=== PATIENT | male | born 1955 | race African-American/Black ===

== ENCOUNTER 2019-03-26 09:23 | Outpatient (CLI) | payer OTHER, SELFPAY ==
--- NOTE | 2019-03-26 09:45 | XR_ITS ---
WS: [id number] RIGHT SHOULDER: 3 VIEW(S) TECHNIQUE: Internal and external rotation with Y view. HISTORY: RIGHT SHOULDER PAIN COMPARISON: None available. No fracture or dislocation or soft tissue abnormality. Very minimal narrowing and degenerative changes at the AC joint. Glenohumeral joint is normal. Visualized RIGHT upper lung is clear. XR/XR shoulder RT min 2V* [id number] IMPRESSION: Very mild RIGHT AC joint arthritis.
== END 2019-03-26 09:24 | disposition home or self-care (01) ==
PROVIDERS: Family Provider Family Medicine
DX: M19.011 Primary osteoarthritis, right shoulder (principal); M25.511 Pain in right shoulder
CPT/HCPCS: 73030

== ENCOUNTER 2019-04-19 10:05 | Outpatient (CLI) | payer OTHER, SELFPAY ==
--- NOTE | 2019-04-19 10:14 | MR_ITS ---
WS: [id number] MRI RIGHT SHOULDER HISTORY: OSTEOARTHRITIS COMPARISON: RIGHT shoulder radiograph 03/26/2019. TECHNIQUE: Multiplanar sequences of the shoulder joint are submitted. Mild narrowing and hypertrophic changes at the AC joint. No encroachment upon the rotator cuff. No os acromion. Biceps tendon remains in good position. There is a small amount of increased fluid along t he tendon sheath. Moderate-sized insertion site tear involving the supraspinatus tendon. Tear extends over a width of 9 mm. Fluid like signal at the insertion site with abnormal signal and thickening extending throughout a large portion of the tendon. Near full-thickness tear. There may be a very small amount of the ten don preserved but there is abnormal signal along both the articular surface and the bursal surface. T here is also marked supraspinatus tendinopathy involving the distal 3 cm. Infraspinatus tendon is int act. Mild subscapularis tendinopathy. There is mild atrophy of the supraspinatus muscle. There is als o small amount of edema and mild atrophy of the subscapularis muscle. Small amount of fluid in the frost bacromial subdeltoid bursa. No labral tear. MR/MR shoulder RT wo con* [id number] IMPRESSION: 1. Moderate-sized insertion site tear of the supraspinatus tendon. Increased s ignal extends throughout a majority of the distal tendon. If this is not a full -thickness tear there is a near complete full-thickness tear. 2. Moderate distal supraspinatus tendinopathy and mild distal subscapularis te ndinopathy. 3. Subacromial and subdeltoid bursal distention. 4. Mild biceps tenosynovitis.
== END 2019-04-19 10:06 | disposition home or self-care (01) ==
LOC: RADWPI 10:10
PROVIDERS: Family Provider Family Medicine
DX: M19.011 Primary osteoarthritis, right shoulder (principal); M75.101 Unspecified rotator cuff tear or rupture of right shoulder, not specified as traumatic; M65.811 Other synovitis and tenosynovitis, right shoulder
CPT/HCPCS: 73221

== ENCOUNTER 2019-05-20 06:27 | Day surgery (SDC) | payer OTHER, SELFPAY ==
[2019-05-19 11:37] VITALS: BMI 32.3
[2019-05-20] VITALS (9 sets, daily range): BP systolic 124–172; BP diastolic 81–99; PULSE 54–95; RESP 16–26; TEMP 36.1–36.7; O2SAT 91–97
[2019-05-20] MEDS: gabapentin 300 mg Capsule PO (06:59)
[2019-05-20] MEDS: acetaminophen 500 mg Tablet 1000 MG PO (06:59)
[2019-05-20] MEDS: CELEcoxib 200 mg Capsule 400 MG PO (06:59)
[2019-05-20] MEDS: sodium chloride 0.9% 1,000 ML 30 ML IV (07:04)
--- NOTE | 2019-05-20 07:12 | W.PM.OPSUD ---
Surgery/Procedure H&P Update DATE OF PROCEDURE: May 20, 2019 DATE H&P PERFORMED: 04/26/19 H&P UPDATE INFORMATION: I have reviewed H&P completed within last 30 days PREOP DIAGNOSIS: Right shoulder rotator cuff PRIMARY INDICATION FOR PROCEDURE: as above PLANNED PROCEDURE: Operation Date: 05/20/19 08:00 Proposed Procedures p Shoulder Arthroscopy 76126 S46.811A(Left) - DO sun Dickinson Rotator Cuff Repair(Left) - Chavo Olmos DO
--- NOTE | 2019-05-20 07:15 | ANES.PREANE2 ---
Pre-Anesthetic Assessment Pre-Anesthetic Assessment: Height/Weight: Height 1.88 m Weight 114.305 kg Temp Pulse Resp BP Pulse Ox 97.7 F 95 18 172/99 97 05/20/19 06:51 05/20/19 06:51 05/20/19 06:51 05/20/19 06:51 05/20/19 06:51 Preop Diagnosis: Right shoulder rotator cuff Proposed Procedure: Operation Date: 05/20/19 08:00 Proposed Procedures p Shoulder Arthroscopy 21450 S46.811A(Left) - Chavo Olmos DO s Rotator Cuff Repair(Left) - Chavo Olmos DO Familial anesthetic complications: None Was Beta Yvonne taken within 24 hours: N/A Last intake: Intake Last Liquid Date 05/19/19 Last Liquid Time 20:00 Last Solid Date 05/19/19 Last Solid Time 20:00 Social: Social History: Alcohol and Tobacco Packs per day: 0.5 ppd Comment: 2-3 beers a night Exam: Pre-Anes Outpt Exam: alert, oriented x 3, clear to auscultation bilaterally and regular rate & rhythm Airway: Cervical ROM: WNL MP: 3 Additional comments: dentures Pulmonary: Pulmonary: COPD (?emphysema on inhalers) CV/HEM: CV/HEM: HTN : : None reported Hepatic: Hepatic: None reported GI: GI: GERD Metabolic: Metabolic: Hyperlipidemia Musc/skel: Musc/skel: None reported Neuropsych: Comments: Numbness in R fingers (mostly in thumb) Anesthetic Plan: ASA status: 2 Anesthesia: General and Regional (specify below) Other: Interscalene Risk of > 500 ml blood loss (7ml/kg in children): No Meds/Allergies Current Medications: Current Medications Generic Name Dose Route Start Last Admin Trade Name Freq PRN Reason Stop Dose Admin Sodium Chloride 1,000 mls @ 30 ml s/hr 05/20/19 06:45 05/20/19 07:04 Sodium Chloride 0.9% IV 05/21/19 06:44 30 mls/hr .Q24H ARCELIA Administration PFSH Anesthesia PFSH: Medical History (Updated 04/28/19 @ 15:15 by Chavo Olmos DO) Accelerated essential hypertension Hypercholesterolemia Rotator cuff tear, non-traumatic Surgical History (Updated 04/28/19 @ 15:15 by Chavo Forsyth, DO) History of rotator cuff surgery left shoulder Family History (Updated 04/26/19 @ 14:13 by Jody Samaniego LPN) Mother Diabetes Hypertension Social History (Updated 04/26/19 @ 14:14 by Jody Samaniego LPN) Smoking and tobacco status: current every day smoker Alcohol intake: current Data Anesthesia Cardiac Studies: No Data to Display
--- NOTE | 2019-05-20 07:17 | P.OP_ITS ---
Operative Report Date of procedure: May 20, 2019 Pre-op Diagnosis: Right shoulder rotator cuff Pre-op Diagnosis: Chronic impingement syndrome right shoulder Non-traumatic tear right rotator cuff Post-op diagnosis: same Post-op Findings: acromioclavicular joint arthritis impinging on rotator cuff Procedure Done: Diagnostic arthroscopy right shoulderwith minimal debridement. Open rotator cuff repair Open distal clavicle excision Open subacromial decompression Implants: #4 Arthrex swivel lock anchors Specimens removed/disposition: portions of distal clavicle and acromion submittedto pathology Pathology: other Surgeon: Chavo Olmos Anesthesia: General and Nerve Block (interscalene block) Estimated blood loss (mL): 50 Complications: no apparent complications Condition: stable Disposition: same day Brief History: 63 y/o black male with chronic right shoulder pain without specific preceding traumatic event.examination consistent with chronic impingement syndrome with possible rotator cuff tear. X-ray show no significant glenohumeral joint arthritis. There is acromioclavicular joint arthritis. There is no decrease in the acromiohumeral interval noted on radiographs. MRI was performed which showed acromioclavicular joint arthritis as well as full-thickness rotator cuff tear supraspinatus tendon. risks, benefits and potential complications of surgery discussed with the patient. Risks include but aren't limited to: Infection, nerve/blood vessel/tendon injury, re-tear of the rotator cuff, postoperative stiffness. Medical complications can include blood clots, heart attack, stroke and risk up to including . All questions were answered. The patient was agreeable to proceed with surgery. Procedure: 1.5 g Zinacef Patient identified. Surgical site was signed. Surgical permit was signed. Anesthesia team performed a right-sided interscalene block for intraoperative and postoperative analgesia. The patient received 1.5 g of Zinacef for surgical prophylaxis intravenously. The patient stating the operating room. His placed on the operating room table in supine position. His placed under general endotracheal anesthesia without difficulty. The patient is then positioned in the beachchair positioner. He was then sterilely prepped and draped in the usual fashion. A timeout was performed. Using a marking pen we marked out the bony landmarks about the right shoulder. #11 blade we made a posterior portal. The posterior portal incision was inserted the arthroscopic sheath with a blunt trocar into the glenohumeral joint. To the S Sheath arthroscopic pump with sterile saline dilute epinephrine solution was attached. The arthroscope was inserted into the shoulder joint. We verified that we were within the shoulder joint. The shoulder was irrigated using the arthroscopic pump. We then advanced the arthroscope from posterior to anterior the arthroscope was removed and a switching stick was inserted and the skin was tented anteriorly. A 15 blade was used to make a anterior portal through which a 7 mm Arthrex clear cannula was inserted into the shoulder joint. The arthroscope was once again placed in the sheath. A shaver was then placed through the anterior portal. The patient's biceps tendon was normal. There is minor fraying of the labrum this was debrided. There is mild synovitis in the shoulder joint this was debrided as well using motorized shaver. We turned our attention lateralward. We noticed that the patient had a full-thickness rotator cuff tear lateral to the exit of the long head of the biceps tendon. We marked this area using a #1 PDS suture that was inserted through a spinal needle placed through the tear exiting out through the anterior portal cannula. The anterior portal cannula was removed. Spinal needle was removed and the PDS suture was hemostatic. This was then directed towards the subacromial space. The patient had marked proliferative bursa. Due to difficulty clearing adequate space for visualization of the rotator cuff while the shoulder continued to distend due to the Pump I elected to convert to an open procedure. 10 cm incision was made from the acromioclavicular joint obliquely over the anterolateral corner of the acromion. Skin edge bleeders were coagulated with electrocautery. Full- thickness flaps of deltotrapezial insertion are made on the distal clavicle and acromion. Using an oscillating saw we resected the distal clavicle and anterior acromion the acromion using osteotome followed by a palmar aspect. Portions of the distal clavicle and acromion were submitted for exam. We then performed extensive resection of bursal tissue identify the underlying rotator cuff tear. I took a rongeur as well as an elevator to [place] the footprint of the supraspinatus tendon. 2 medial row anchors were placed at the articular margin one just posterior to exiting biceps tendon and the other more posterior on the greater tuberosity. Using the [place] needle passer replaced fiber tape sutures through the rotator cuff we then made a speed bridge construct and anchored to lateral anchors in the humeral head. Ramipril appropriate tension to reduce the rotator cuff tendon back to its anatomic position. Excess suture was cut using a knife. Subacromial space was irrigated using Betadine- containing saline solution and antibiotic containing saline solution. We repaired the elbow. Back to the acromion by passing #2 sutures of FiberWire through the deltoid muscle and through the acromion. Further repaired the split in the deltoid and the soft tissues overlying the resected, click joint using a sutures of #2 Ethibond. The skin was then closed in layers with running septic or suture of 3-0 Monocryl followed by Steri-Strips and skin glue at the incision and portal sites. Sterile dressings were applied the patient is placed in a shoulder immobilizer. He was aroused from general anesthesia. He was taken to the recovery room. He tolerated surgery well. All counts are correct.
[2019-05-20 07:34] LABS: Basophils % 0.8 %; Eosinophils # 0.1 10^3/uL (0.0-0.8); Eosinophils % 2.3 %; Hemoglobin 15.5 g/dL (11.7-16.6); Lymphocytes # 1.7 10^3/uL (0.8-4.8); Lymphocytes % 35.5 %; Mean Corpuscular HGB Conc 33.7 g/dL (30.0-36.0); Mean Corpuscular Hemoglobin 31.1 pg (28.0-34.0); Mean Corpuscular Volume 92.2 fL (80-94); Mean Platelet Volume 11.7 fL (7.4-10.4); Monocytes # 0.6 10^3/uL (0.2-0.9); Monocytes % 13.1 %; Neutrophils # 2.3 10^3/uL (1.8-7.7); Neutrophils % 48.1 %; Nucleated Red Blood Cells % 0 %; Platelet Count 166 10^3/cmm (130-400); Red Blood Count 4.99 10^6/uL (4.1-5.3); Red Cell Distribution Width 14.2 % (12.1-15.1); White Blood Count 4.9 10^3/uL (4.0-10.0)
[2019-05-20] MEDS: midazolam 1 mg/mL INJ 2 mL 2 MG IVP (07:39)
--- NOTE | 2019-05-20 07:43 | ANES.PROC ---
Anesthesia Procedures Procedure/Date: 05/20/19 Nerve Block ^: Nerve Block 1: Main Anesthesia: general anesthesia Time Out Performed: Yes Consent: requested by attending/covering physician, risks and benefits reviewed and patient agrees to proceed Nerve block location: interscalene (R) Anesthesia monitors applied: pulse oximetry, BP cuff and oxygen Nerve block position: semi sitting Anesthetic Used: ropivicaine 0.5% and with decadron (4mg) Amount of anesthesia used (mL): 30 Ultrasound used to: recognize landmarks and visualize and ID interscalene groove Nerve Stimulator Used?: No Interscalene/Femoral BLK: 2 stimuplex 22 g needle used for position and inplane approach Injection: neg aspiration of heme Patient Tolerated Procedure: well Complications: none Additional Comments: versed 1 mg
[2019-05-20 07:45] LABS: Anion Gap 16.1 (5-19); Blood Urea Nitrogen 19 mg/dL (8-23); Calcium 10.2 mg/dL (8.5-10.5); Carbon Dioxide 25 mmol/L (22-29); Chloride 100 mmol/L (98-107); Glomerular Filtration Rate 91.6 mL/min (90-130); Glucose 122 mg/dL (65-115); Osmolality Calculated 282 mOsm/kg (285-295); Potassium 4.1 mmol/L (3.5-5.1); Sodium 137 mmol/L (136-145)
[2019-05-20] MEDS: EPINEPHrine 1 mg/mL INJ 3 MG XX (09:09)
== END 2019-05-20 12:25 | disposition home or self-care (01) ==
PROVIDERS: Family Provider Family Medicine; Visit Provider Orthopaedic Surgery
PROC: (CPT 29805; principal; 2019-05-20 08:00)
PROC: (CPT 23120; 2019-05-20 08:00)
DX: M75.101 Unspecified rotator cuff tear or rupture of right shoulder, not specified as traumatic (principal); M25.811 Other specified joint disorders, right shoulder; M13.811 Other specified arthritis, right shoulder; Z82.49 Family history of ischemic heart disease and other diseases of the circulatory system; Z83.3 Family history of diabetes mellitus; F17.210 Nicotine dependence, cigarettes, uncomplicated; I10 Essential (primary) hypertension; E78.5 Hyperlipidemia, unspecified; K21.9 Gastro-esophageal reflux disease without esophagitis
CPT/HCPCS: 23120; 23420; 12345; 36415; 80048; 85025; 88304; 96374; C1713; J0171; J0697; J1100; J1580; J2250; J2370; J2405; J2704; J2710; J2795; J3010; J3490; J7030; J7050

== ENCOUNTER → 2021-05-04 11:43 | Outpatient (BNVA) | payer OTHER, SELFPAY | PROVIDERS: Family Provider Family Medicine; PCP Nurse Practitioner; Referring Provider Nurse Practitioner; Visit Provider Urology | DX: R97.20 Elevated prostate specific antigen [PSA] (principal); R31.0 Gross hematuria | CPT/HCPCS: 81003; 84153; 87086; 88112 ==

== ENCOUNTER → 2021-05-31 16:51 | Outpatient (BNVA) | payer OTHER, SELFPAY | PROVIDERS: Family Provider Family Medicine; PCP Nurse Practitioner; Visit Provider Urology | DX: R97.20 Elevated prostate specific antigen [PSA] (principal) | CPT/HCPCS: 81003; 88305; 88342 ==

== ENCOUNTER 2021-06-08 08:32 | Outpatient (CLI) | payer OTHER, SELFPAY ==
--- NOTE | 2021-06-08 09:00 | CT_ITS ---
WS: [id number] Exam: CT abdomen pelvis wo/w [id number] Date/Time of Exam: 06/08/2021 8:39 AM Reason For Exam: PROSTATE CANCER DLP: 3686.[address] scans at [facility] use at least one of these dose optimization techniques: automated e xposure control; mA and/or kV adjustment per patient size (includes targeted exams where dose is matc hed to clinical indication); or iterative reconstruction. Comparison 08/15/2016. Lower lung zones are clear. The stomach, spleen and pancreas appear normal. Subcentimeter low-attenu ation nodule in the inferior aspect of the right hepatic lobe probably a tiny cyst. Tiny stones or mi lk of calcium in the gallbladder. No sign of acute cholecystitis. Small splenule noted. No significan t adrenal lesion. Tiny subcentimeter complex cyst in the anterior right kidney stable in appearance. Normal left kidney. The abdominal aorta is normal in caliber. The IVC is patent. Portal vein is paten t. Small bowel loops are normal in caliber. No lymphadenopathy. No free air. No sign of acute appendi x. Appendix visualized. No mass or adenopathy in the pelvis. Mild colonic diverticulosis. No sign of acute diverticulitis. Wall thickening of the urinary bladder which might reflect mild cystitis. No m ass or adenopathy in the pelvis. Mild prostatomegaly. No osteolytic or osteoblastic bone destruction. Dystrophic ossification along the anterior right ilium which may be secondary to prior trauma. This is stable in appearance. Progressive degenerative changes of the lower lumbar spine. Probable small b ilateral hydroceles. CT/CT abdomen pelvis wo/w [id number] IMPRESSION: 1. No mass, lymphadenopathy or acute finding. 2. Tiny calcifications in the gallbladder suggesting either tiny stones or milk of calcium. No sign of acute cholecystitis. Mild colonic diverticulosis. Other minor findings as above. 3. Wall thickening of the urinary bladder which might reflect mild cystitis or underdistention of the bladder.
[2021-06-08 09:19] LABS: Blood Urea Nitrogen 13 mg/dL (8-23); Glomerular Filtration Rate 73.8 mL/min (90-130)
[2021-06-08] MEDS: iohexol 350 mg/mL 100 mL Btl IV (11:57)
== END 2021-06-08 08:33 | disposition home or self-care (01) ==
PROVIDERS: PCP Nurse Practitioner; Visit Provider Urology
DX: C61 Malignant neoplasm of prostate (principal)
CPT/HCPCS: 74178; 82565; 84520

== ENCOUNTER 2021-06-14 07:48 | Outpatient (CLI) | payer OTHER, SELFPAY ==
--- NOTE | 2021-06-14 07:53 | NM_ITS ---
WS: [id number] NUCLEAR MEDICINE BONE SCAN Radiopharmaceutical: 24.4 Tc-99m MDP mCi IV Injection site: RIGHT antecubital Postinjection imaging delay: 1 hr CLINICAL INFORMATION: PROSTATE CANCER COMPARISON: Bone scan [address] abdomen pelvis June 08, 2021 FINDINGS: Bone lesions: There are no osseous lesions suspicious for metastatic disease. Soft tissue contours: Normal. Kidneys: Normal. Other findings: Degenerative type uptake RIGHT shoulder, RIGHT hip dystrophic calcification, and LEFT knee. This is similar to 2013. Urinary contamination. Degenerative, Uptake in the lower lumbar spine compatible with spondylitic changes. Advanced degenerative arthritis in this area on the recent CT with disc space narrowing and subchondral cystic changes. NM/NM bone scan whole body* [id number] IMPRESSION: No evidence of osseous metastatic disease.
== END 2021-06-14 07:49 | disposition home or self-care (01) ==
LOC: RAD 07:48
PROVIDERS: PCP Nurse Practitioner; Visit Provider Urology
DX: C61 Malignant neoplasm of prostate (principal)
CPT/HCPCS: 78306; A9561

== ENCOUNTER 2021-06-20 14:20 | Outpatient (CLI) | payer OTHER, SELFPAY ==
--- NOTE | 2021-06-20 17:07 | ONC CON_ITS ---
Dr. Mathur New Patient Note Patient: Khang Hudson Unit #: [id number]: 1955 Dicatated By: Anabel Mathur M.D.Date of Visit: Jun 20, 2021 Onc MED New Patient/Consult Referring Physician: Dr. Taj Armendariz M.D. History of Present Illness: Mr. Khang Hudson, is a 65-year-old gentleman with history of progressive PSA level underwent NICKOLAS on May 31, 2021 which showed distinct right-sided nodularity, subsequently underwent TRUS P/biopsy on May 31, 2021 and pathology confirmed large volume, Bushnell score 5+5, grade group 5 in 10 of 12 cores. Lymphovascular/perineural invasion seen,. CT scan of abdomen pelvis done on June 08, 2021 showed no mass or lymphadenopathy bone scan done on June 14, 2021 shows no evidence of osseous metastatic disease., His PSA level on May 04, 2021 was 10.4 , Smoke about half pack a day, is a social drinker Past medical history significant for arthritis involving lower lumbar spine and shoulder, hypertension, hypercholesterolemia No family history significant for prostate cancer Denies any fever chills denies any dysuria or hematuria denies any new bony pain except chronic lower back pain probably due to arthritis as bone scan/CT scan of abdomen pelvis done recently showed no evidence of bone mets, as per patient, Dr. Armendariz, urologist, informed him that he is not a candidate for surgery so he is here to discuss about his treatment options Past Medical History: Mr. Hudson's medical history consists of allergic rhinitis, chronic obstructive pulmonary disease, diaphragmatic hernia, dislocation of shoulder joint, gastroesophageal reflux disease, hyperlipidemia, hypertension, inguinal hernia, and osteoarthritis. Past Surgical History: Mr. Hudson's surgical/procedural history consists of TRUSP/bx in 2021 and hernia repair in 2003. Medications: amLODIPine Besylate 1 Tablet (of 2.5 mg) Oral t.i.d., Celecoxib 1 Capsule (of 100 mg) Oral b.i.d., Chlorpheniramine Maleate 1 Tablet (of 4 mg) Oral daily, Cytotec 1 Tablet (of 100 mcg) Oral b.i.d., hydroCHLOROthiazide 1 Tablet (of 25 mg) Oral daily, Omeprazole 1 Tablet (of 20 mg) Capsule Delayed Release Oral daily, Rosuvastatin Calcium 1 Tablet (of 10 mg) Oral daily Allergies: No Known Allergies. Social History: Mr. Hudson is . He is a daily smoker who has smoked 0.5 packs/day for 35 years. He drinks occasionally. He has indicated exposure to the following products: cigarettes. Family History: Mr. Hudson's mother at age 64: breast cancer. Mr. Hudson's father at age 64: lung cancer. Review Of Symptoms: Review of Systems is not available for this patient. Vital Signs: Performed on Jun 20, 2021 15:26: 4, 3, 32.20 (HIGH), 2.39 sq.m, 74 in, 95 % (LOW), 51 /min (LOW), 18 /min, 127/84 mm(hg), 97.6 F (LOW), and 250.8 lbs (HIGH). Performance Status: 0 - Fully active, able to carry on all predisease activities without restrictions. (ECOG) Physical Examination: ENMT - No mouth sores, no thrush, no jaundice, Respiratory - Lungs are clear to auscultation, Cardiovascular - Regular rate and rhythm of heart, Abdomen - Soft, bowel sounds present, Extremities - No visible edema or rash. Lab/Imaging: Most recent lab results are not available for this patient. Impression: Very high risk, large volume, Bushnell 5+5, grade group 5 and 10 of 12 cores, lymphovascular/perineural invasion seen per TUR SP/biopsy done on May 31, 2021, PSA done on May 04, 2021 was 10.4, NICKOLAS showed distinct right-sided nodularity. CT scan of abdomen pelvis done on June 08, 2021 showed no mass or lymphadenopathy bone scan done on June 14, 2021 shows no evidence of osseous metastatic disease. Clinical stage IIIc ((grade group 5) Chronic lower back pain due to arthritis Hypertension Hypercholesterolemia Plan: Discussed with patient regarding his disease status, CT scan of abdomen pelvis and bone scan findings, clinically it appears patient has T2 a or b (NICKOLAS exam shows right lobe nodularity), NX, MX, large volume, Kassidy score 5+5, group grade 5 which will make him very high risk group, as per patient, Dr. Armendariz, informed him that he is not a candidate for surgery, so he is here to discuss about his treatment options, as per NCCN guidelines, in patient with very high risk group category, with life expectancy more than 5 years, standard of care would be combined ADT/radiation therapy followed by docetaxel every 3 weeks x6 and continue with adjuvant therapy with ADT for 2 to 3 years or instead of chemotherapy, abiraterone. Considering his age and overall good performance status and risk of developing hormone resistant disease, we would consider chemotherapy with docetaxel. All the side effect possible benefits associated with ADT with Zoladex/Casodex including but not limited to hot flashes, mood swings, erectile dysfunction, decreased libido, gynecomastia, muscle wasting, bone demineralization, abnormal LFTs especially with Casodex were mentioned, also discussed about chemotherapy briefly, will have further discussion once patient complete his combined hormonal/radiation therapy. In the meantime we will obtain baseline CBC CMP, PSA and testosterone level Patient return to clinic 1 month after Zoladex injection with PSA and testosterone level and CMP Patient was also offered a referral to tertiary care for second opinion, patient opted for treatment here. We will refer him to radiation oncology For evaluation regarding combined hormonal/radiation therapy.We will also consider genetic testing for including BRCA1/2, PRETTY, PALB 2, CH EK 2, MMR/MSI, [id number] Signed By: Anabel Mathur M.D. <<Signature on File>>
== END 2021-06-20 14:21 | disposition home or self-care (01) ==
LOC: ONCMED 14:26
PROVIDERS: PCP Nurse Practitioner; Visit Provider Internal Medicine Hematology & Oncology
DX: C61 Malignant neoplasm of prostate (principal); I10 Essential (primary) hypertension; E78.00 Pure hypercholesterolemia, unspecified; J44.9 Chronic obstructive pulmonary disease, unspecified; K21.9 Gastro-esophageal reflux disease without esophagitis; E78.5 Hyperlipidemia, unspecified; Z79.899 Other long term (current) drug therapy
CPT/HCPCS: 99205

== ENCOUNTER 2021-06-21 09:00 | Outpatient (CLI) | payer OTHER, SELFPAY ==
[2021-06-21 09:51] LABS: Basophils % 0.9 %; Eosinophils # 0.1 10^3/uL (0.0-0.8); Hematocrit 49.1 % (42.0-52.0); Hemoglobin 16.2 g/dL (11.7-16.6); Lymphocytes # 2.1 10^3/uL (0.8-4.8); Lymphocytes % 48.1 %; Mean Corpuscular Hemoglobin 30.5 pg (28.0-34.0); Mean Corpuscular Volume 92.3 fl (80-94); Mean Platelet Volume 11.3 fL (7.4-10.4); Monocytes # 0.6 10^3/uL (0.2-0.9); Neutrophils # 1.52 10^3/uL (1.8-7.7); Neutrophils % 34.8 %; Nucleated Red Blood Cells % 0 %; Platelet Count 177 10^3/cmm (130-400); Red Blood Count 5.32 10^6/uL (4.1-5.3); Red Cell Distribution Width 14.5 % (12.1-15.1); White Blood Count 4.4 10^3/uL (4.0-10.0)
[2021-06-21 10:20] LABS: Alanine Aminotransferase 21 U/L (0-41); Albumin Level 4.4 g/dL (3.5-5.2); Alkaline Phosphatase 251 IU/L (40-130); Aspartate Amino Transferase 25 U/L (0-40); Blood Urea Nitrogen 13 mg/dL (8-23); Calcium 9.6 mg/dL (8.5-10.5); Carbon Dioxide 27 mmol/L (22-29); Chloride 98 mmol/L (98-107); Globulin 2.5 g/dL (1.3-4.6); Glucose 119 mg/dL (65-115); Osmolality Calculated 281 mOsm/kg (285-295); Sodium 135 mmol/L (136-145); Total Bilirubin 0.2 mg/dL (0.15-1.2); Total Protein 6.9 g/dL (6.6-8.7)
[2021-06-21 10:26] LABS: Anion Gap 14.3 (5-19); Potassium 4.3 mmol/L (3.5-5.1)
== END 2021-06-21 09:01 | disposition home or self-care (01) ==
PROVIDERS: PCP Nurse Practitioner; Visit Provider Internal Medicine Hematology & Oncology
DX: C61 Malignant neoplasm of prostate (principal); I10 Essential (primary) hypertension; E78.00 Pure hypercholesterolemia, unspecified; J44.9 Chronic obstructive pulmonary disease, unspecified; K21.9 Gastro-esophageal reflux disease without esophagitis; E78.5 Hyperlipidemia, unspecified; Z79.899 Other long term (current) drug therapy
CPT/HCPCS: 36415; 80053; 84153; 84403; 85025

== ENCOUNTER 2021-06-27 13:55 | Outpatient (CLI) | payer OTHER, SELFPAY ==
[2021-06-27] MEDS: lidocaine 1% INJ 20 mL INJECTION (14:20)
[2021-06-27] MEDS: goserelin acetate 10.8 mg Implant SUBCUT (14:30)
== END 2021-06-27 13:56 | disposition home or self-care (01) ==
LOC: ONCMED 13:56
PROVIDERS: PCP Nurse Practitioner; Visit Provider Internal Medicine Hematology & Oncology
DX: C61 Malignant neoplasm of prostate (principal); I10 Essential (primary) hypertension; E78.00 Pure hypercholesterolemia, unspecified; J44.9 Chronic obstructive pulmonary disease, unspecified; K21.9 Gastro-esophageal reflux disease without esophagitis; E78.5 Hyperlipidemia, unspecified; Z79.899 Other long term (current) drug therapy
CPT/HCPCS: 96372; 96402; J9202

== ENCOUNTER 2021-08-03 09:08 | Oncology outpatient (recurring) (ONCR) | payer OTHER, SELFPAY | END 2021-08-07 23:59 | disposition home or self-care (01) | PROVIDERS: PCP Nurse Practitioner; Visit Provider Internal Medicine Hematology & Oncology | DX: C61 Malignant neoplasm of prostate (principal); R53.1 Weakness; R53.82 Chronic fatigue, unspecified; F41.9 Anxiety disorder, unspecified; M75.100 Unspecified rotator cuff tear or rupture of unspecified shoulder, not specified as traumatic; Z79.818 Long term (current) use of other agents affecting estrogen receptors and estrogen levels; Z79.899 Other long term (current) drug therapy | CPT/HCPCS: 80053; 84153; 84403; 85025; 99214; 99999 ==

== ENCOUNTER 2021-08-14 11:57 | Oncology outpatient (recurring) (ONCR) | payer OTHER, SELFPAY ==
--- NOTE | 2021-08-08 09:46 | N.ONRAD NP_ITS ---
Radiation Oncology Consultation Patient Name: Khang Hudson Date of : 1955 Date of Service: 08/08/2021 Attending Physician: Johnathan Gallegos M.D. Khang Hudson was seen in consultation this morning at the request of Madhu Mathur M.D. for consideration of prostate radiotherapy for the management of a recently diagnosed prostate cancer. He initially was identified to have an elevated PSA level (9.6 ng/mL) in March by his primary care physician. He was referred to Taj Armendariz M.D. A digital rectal exam revealed a right prostatic lobe nodule. Repeat PSA level was 10.4 ng/mL. A transrectal ultrasound-guided biopsy performed on May 31, 2021 revealed a 53 cc prostate gland with bilateral hypoechoic lesions. The pathology report (personally reviewed in [facility]) diagnosed an adenocarcinoma the prostate gland with a Kassidy score of 5+5 = 10 (grade group 5) involving the right lateral apex (25%), right lateral mid gland (100%), right lateral base (100%), right apex (25%), right mid gland (100%), right base (100%), left lateral base (60%), left apex (60%), left mid gland (100%), and left base (100%). Perineural invasion was identified. A nuclear medicine bone scintigraphy scan and an abdominopelvic CT scan metastatic disease did not identify metastatic disease. A [id number] CDx genomic profiling was obtained. A tumor mutational burden of 4.7 mut/Mb was reported and high microsatellite instability was not detected. A GnRH agonist (Zoladex) was administered on June 27, 2021. The patient was evaluated for radiotherapeutic options. I discussed with Mr. Hudson the [place] [employer] on Cancer staging for prostate cancer and specifically, the clinical stage IIIC (T2aN0) very high-risk stratification corresponding to the patient???s prostate cancer. I also reviewed the National Comprehensive Cancer Network Guidelines recommending androgen deprivation therapy, external beam radiotherapy with or without brachytherapy and consideration for docetaxel chemotherapy. The admonition by the NCCN was established by the RTOG 0521 trial that enrolled patients with high-risk non-metastatic prostate cancer to receive androgen suppression plus radiotherapy with or without adjuvant docetaxel chemotherapy. This study demonstrated improved overall survival and disease-free survival in the chemotherapy arm. I also reviewed GETUG???12 study which also enrolled high-risk localized prostate cancer patients to androgen suppression and docetaxel chemotherapy with estramustine or androgen suppression alone. Updated results published in abstract form continued to demonstrate a relapse free survival with the administration of chemotherapy. I would endorse a 7-1/2 week course of pelvic and prostate radiotherapy. Prior to commencement of radiotherapy, neoadjuvant total androgen suppression will be prescribed. A radiotherapy planning CT scan with contrast in the treatment position will be acquired to delineate the target volumes. I also discussed potential adverse events related to pelvic radiotherapy. The patient has verbalized understanding would like to proceed as advised. His medical treatment plan was discussed with Madhu Mathur M.D. Signed by: Dr. Johnathan Gallegos 08/08/2021 9:45:11 AM
--- NOTE | 2021-08-14 | CT_ITS ---
Radiation Therapy Planning CT images; total exam DLP: 1169.23 mGy-cm MTDD
== END 2021-08-21 08:13 | disposition home or self-care (01) ==
PROVIDERS: PCP Nurse Practitioner; Visit Provider Radiology Radiation Oncology
DX: Z51.0 Encounter for antineoplastic radiation therapy (principal); C61 Malignant neoplasm of prostate; Z79.818 Long term (current) use of other agents affecting estrogen receptors and estrogen levels
CPT/HCPCS: 77263; 77300; 77301; 77334; 77338; 77470; Q9967

== ENCOUNTER 2021-09-06 14:16 | Oncology outpatient (recurring) (ONCR) | payer OTHER, SELFPAY ==
--- NOTE | 2021-08-21 15:00 | ONCRAD TMN_ITS ---
Radiation Oncology Treatment Management Note Patient Name: Khang Hudson Date of : 1955 Date of Service: 08/21/2021 Attending Physician: Johnathan Gallegos M.D. 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 He initially was identified to have an elevated PSA level (9.6 ng/mL) in March by his primary care physician. He was referred to Taj Armendariz M.D. A digital rectal exam revealed a right prostatic lobe nodule. Repeat PSA level was 10.4 ng/mL. A transrectal ultrasound-guided biopsy performed on May 31, 2021 revealed a 53 cc prostate gland with bilateral hypoechoic lesions. The pathology report diagnosed an adenocarcinoma the prostate gland with a Kassidy score of 5+5 = 10 (grade group 5) involving the right lateral apex (25%), right lateral mid gland (100%), right lateral base (100%), right apex (25%), right mid gland (100%), right base (100%), left lateral base (60%), left apex (60%), left mid gland (100%), and left base (100%). Perineural invasion was identified. A nuclear medicine bone scintigraphy scan and an abdominopelvic CT scan metastatic disease did not identify metastatic disease. A [id number] CDx genomic profiling was obtained. A tumor mutational burden of 4.7 mut/Mb was reported and high microsatellite instability was not detected. A GnRH agonist (Zoladex) was administered on June 27, 2021. The patient has received 4 Gy of a prescribed 46 Razo to the prostate and regional lymph nodes with an intensity modulated radiotherapy plan utilizing a step and shoot treatment technique. An additional 32 Razo will be delivered to the prostate gland subsequent to the initial garcia. He has received neoadjuvant hormonal therapy. Upon review of systems, he denied any genitourinary complaints related to radiotherapy. On physical examination, the patient weighed 253 lbs. His temperature was 96.1 ???F and the blood pressure was 138/71 mmHg. The pulse was 60 bpm and his respiratory rate was 18. There was no erythema within the treatment garcia. Continue pelvic radiotherapy as prescribed. Signed by: Dr. Johnathan Gallegos 08/21/2021 2:59:34 PM
--- NOTE | 2021-08-28 14:50 | ONCRAD TMN_ITS ---
Radiation Oncology Treatment Management Note Patient Name: Khang Hudson Date of : 1955 Date of Service: 08/28/2021 Attending Physician: Johnathan Gallegos M.D. 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 He initially was identified to have an elevated PSA level (9.6 ng/mL) in March by his primary care physician. He was referred to Taj Armendariz M.D. A digital rectal exam revealed a right prostatic lobe nodule. Repeat PSA level was 10.4 ng/mL. A transrectal ultrasound-guided biopsy performed on May 31, 2021 revealed a 53 cc prostate gland with bilateral hypoechoic lesions. The pathology report diagnosed an adenocarcinoma the prostate gland with a Kassidy score of 5+5 = 10 (grade group 5) involving the right lateral apex (25%), right lateral mid gland (100%), right lateral base (100%), right apex (25%), right mid gland (100%), right base (100%), left lateral base (60%), left apex (60%), left mid gland (100%), and left base (100%). Perineural invasion was identified. A nuclear medicine bone scintigraphy scan and an abdominopelvic CT scan metastatic disease did not identify metastatic disease. A [id number] CDx genomic profiling was obtained. A tumor mutational burden of 4.7 mut/Mb was reported and high microsatellite instability was not detected. A GnRH agonist (Zoladex) was administered on June 27, 2021. The patient has received 14 Gy of a prescribed 46 Razo to the prostate and regional lymph nodes with an intensity modulated radiotherapy plan utilizing a step and shoot treatment technique. An additional 32 Gy will be delivered to the prostate gland subsequent to the initial garcia. He has received neoadjuvant hormonal therapy. Upon review of systems, he denied any genitourinary complaints. On physical examination, the patient weighed 256 lbs. His temperature was 97.7 ???F and the blood pressure was 143/76 mmHg. The pulse was 74 bpm and his respiratory rate was 19. Continue pelvic radiotherapy as planned. Signed by: Dr. Johnathan Gallegos 08/28/2021 2:48:29 PM
--- NOTE | 2021-09-04 14:47 | ONCRAD TMN_ITS ---
Radiation Oncology Treatment Management Note Patient Name: Khang Hudson Date of : 1955 Date of Service: 09/04/2021 Attending Physician: Johnathan Gallegos M.D. 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 He initially was identified to have an elevated PSA level (9.6 ng/mL) in March by his primary care physician. He was referred to Taj Armendariz M.D. A digital rectal exam revealed a right prostatic lobe nodule. Repeat PSA level was 10.4 ng/mL. A transrectal ultrasound-guided biopsy performed on May 31, 2021 revealed a 53 cc prostate gland with bilateral hypoechoic lesions. The pathology report diagnosed an adenocarcinoma the prostate gland with a Kassidy score of 5+5 = 10 (grade group 5) involving the right lateral apex (25%), right lateral mid gland (100%), right lateral base (100%), right apex (25%), right mid gland (100%), right base (100%), left lateral base (60%), left apex (60%), left mid gland (100%), and left base (100%). Perineural invasion was identified. A nuclear medicine bone scintigraphy scan and an abdominopelvic CT scan metastatic disease did not identify metastatic disease. A [id number] CDx genomic profiling was obtained. A tumor mutational burden of 4.7 mut/Mb was reported and high microsatellite instability was not detected. A GnRH agonist (Zoladex) was administered on June 27, 2021. The patient has received 24 Gy of a prescribed 46 Razo to the prostate and regional lymph nodes with an intensity modulated radiotherapy plan utilizing a step and shoot treatment technique. An additional 32 Gy will be delivered to the prostate gland subsequent to the initial garcia. He has received neoadjuvant hormonal therapy. Upon review of systems, he denied any new complaints. On physical examination, the patient weighed 252 lbs. His temperature was 98 ???F and the blood pressure was 125/77 mmHg. The pulse was 66 bpm and his respiratory rate was 18. Continue pelvic radiotherapy as prescribed. Signed by: Dr. Johnathan Gallegos 09/04/2021 2:46:24 PM
== END 2021-09-06 23:59 | disposition home or self-care (01) ==
PROVIDERS: PCP Nurse Practitioner; Visit Provider Radiology Radiation Oncology
DX: Z51.0 Encounter for antineoplastic radiation therapy (principal); C61 Malignant neoplasm of prostate
CPT/HCPCS: 77014; 77336; 77385; 77427

== ENCOUNTER 2021-09-17 13:55 | Outpatient (CLI) | payer OTHER, SELFPAY | END 2021-09-17 13:56 | disposition home or self-care (01) | PROVIDERS: PCP Nurse Practitioner; Visit Provider Urology | DX: R31.0 Gross hematuria (principal); C61 Malignant neoplasm of prostate; R39.89 Other symptoms and signs involving the genitourinary system; R39.11 Hesitancy of micturition | CPT/HCPCS: 51798; G0463; 36415; 84153; 99213 ==

== ENCOUNTER 2021-10-05 09:04 | Oncology outpatient (recurring) (ONCR) | payer OTHER, SELFPAY ==
--- NOTE | 2021-09-11 15:03 | ONCRAD TMN_ITS ---
Radiation Oncology Treatment Management Note Patient Name: Khang Hudson Date of : 1955 Date of Service: 09/11/2021 Attending Physician: Johnathan Gallegos M.D. 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 He initially was identified to have an elevated PSA level (9.6 ng/mL) in March by his primary care physician. He was referred to Taj Armendariz M.D. A digital rectal exam revealed a right prostatic lobe nodule. Repeat PSA level was 10.4 ng/mL. A transrectal ultrasound-guided biopsy performed on May 31, 2021 revealed a 53 cc prostate gland with bilateral hypoechoic lesions. The pathology report diagnosed an adenocarcinoma the prostate gland with a [place] score of 5+5 = 10 (grade group 5) involving the right lateral apex (25%), right lateral mid gland (100%), right lateral base (100%), right apex (25%), right mid gland (100%), right base (100%), left lateral base (60%), left apex (60%), left mid gland (100%), and left base (100%). Perineural invasion was identified. A nuclear medicine bone scintigraphy scan and an abdominopelvic CT scan metastatic disease did not identify metastatic disease. A [id number] CDx genomic profiling was obtained. A tumor mutational burden of 4.7 mut/Mb was reported and high microsatellite instability was not detected. A GnRH agonist (Zoladex) was administered on June 27, 2021. The patient has received 32 Gy of a prescribed 46 Razo to the prostate and regional lymph nodes with an intensity modulated radiotherapy plan utilizing a step and shoot treatment technique. An additional 32 Gy will be delivered to the prostate gland subsequent to the initial garcia. He has received neoadjuvant hormonal therapy. Upon review of systems, he denied any new complaints. On physical examination, the patient weighed 250 lbs. His temperature was 97.9 ???F and the blood pressure was 125/74 mmHg. The pulse was 59 bpm and his respiratory rate was 16. There was no erythema in the treatment garcia. Continue pelvic radiotherapy as planned. Signed by: Dr. Johnathan Gallegos 09/11/2021 3:02:01 PM
--- NOTE | 2021-09-18 15:04 | ONCRAD TMN_ITS ---
Radiation Oncology Treatment Management Note Patient Name: Khang Hudson Date of : 1955 Date of Service: 09/18/2021 Attending Physician: Johnathan Gallegos M.D. Khang Hudson is a 65 year old black male diagnosed with a clinical stage IIIC (T2aN0), very high-risk prostate cancer. He initially was identified to have an elevated PSA level (9.6 ng/mL) in March by his primary care physician. He was referred to Taj Armendariz M.D. A digital rectal exam revealed a right prostatic lobe nodule. Repeat PSA level was 10.4 ng/mL. A transrectal ultrasound-guided biopsy performed on May 31, 2021 revealed a 53 cc prostate gland with bilateral hypoechoic lesions. The pathology report diagnosed an adenocarcinoma of the prostate gland with a Kassidy score of 5+5 = 10 (grade group 5) involving the right lateral apex (25%), right lateral mid gland (100%), right lateral base (100%), right apex (25%), right mid gland (100%), right base (100%), left lateral base (60%), left apex (60%), left mid gland (100%), and left base (100%). Perineural invasion was identified. A nuclear medicine bone scintigraphy scan and an abdominopelvic CT scan metastatic disease did not identify metastatic disease. A [id number] CDx genomic profiling was obtained. A tumor mutational burden of 4.7 mut/Mb was reported and high microsatellite instability was not detected. A GnRH agonist (Zoladex) was administered on June 27, 2021. The patient has received 42 Gy of a prescribed 46 Razo to the prostate and regional lymph nodes with an intensity modulated radiotherapy plan utilizing a step and shoot treatment technique. An additional 32 Gy will be delivered to the prostate gland subsequent to the initial garcia. He has received neoadjuvant hormonal therapy. Upon review of systems, he described hot flashes. On physical examination, the patient weighed 252 lbs. His temperature was 97.8 ???F and the blood pressure was 121/77 mmHg. The pulse was 71 bpm and his respiratory rate was 18. There was no erythema in the treatment garcia. Continue pelvic radiotherapy as prescribed. Signed by: Dr. Johnathan Gallegos 09/18/2021 3:02:42 PM
[2021-09-26 10:49] LABS: Basophils % 0.6 %; Eosinophils # 0.1 10^3/uL (0.0-0.8); Eosinophils % 2.1 %; Hematocrit 44.8 % (42.0-52.0); Hemoglobin 15.1 g/dL (11.7-16.6); Lymphocytes # 0.5 10^3/uL (0.8-4.8); Lymphocytes % 15.3 %; Mean Corpuscular HGB Conc 33.7 g/dL (30.0-36.0); Mean Corpuscular Hemoglobin 31.5 pg (28.0-34.0); Mean Corpuscular Volume 93.3 fl (80-94); Mean Platelet Volume 10.9 fL (7.4-10.4); Monocytes # 0.6 10^3/uL (0.2-0.9); Monocytes % 18.9 %; Neutrophils # 2.08 10^3/uL (1.8-7.7); Neutrophils % 62.5 %; Nucleated Red Blood Cells % 0 %; Platelet Count 179 10^3/cmm (130-400); Red Cell Distribution Width 14.5 % (12.1-15.1); White Blood Count 3.3 10^3/uL (4.0-10.0)
[2021-09-26 11:27] LABS: Alanine Aminotransferase 25 U/L (0-41); Albumin Level 4.6 g/dL (3.5-5.2); Alkaline Phosphatase 177 IU/L (40-130); Anion Gap 14.7 (5-19); Aspartate Amino Transferase 23 U/L (0-40); Blood Urea Nitrogen 14 mg/dL (8-23); Calcium 9.8 mg/dL (8.5-10.5); Carbon Dioxide 26 mmol/L (22-29); Chloride 98 mmol/L (98-107); Globulin 2.8 g/dL (1.3-4.6); Glomerular Filtration Rate 117.4 mL/min (90-130); Glucose 124 mg/dL (65-115); Osmolality Calculated 282 mOsm/kg (285-295); Potassium 3.7 mmol/L (3.5-5.1); Sodium 135 mmol/L (136-145); Total Bilirubin 0.2 mg/dL (0.15-1.2); Total Protein 7.4 g/dL (6.6-8.7)
[2021-09-26 11:56] LABS: Testosterone Total 2.5 ng/dL (193-740)
--- NOTE | 2021-09-26 12:09 | ONCRAD TMN_ITS ---
Radiation Oncology Weekly Treatment Management Patient: Tristan Quiñonez MR#: [id number] : 1955 Attending Physician: Dr. Bud Johnson Date of Service: 09/26/2021 Referring Physician(s) : Anabel Mathur M.D. Diagnosis: C61 - Malignant neoplasm of prostate, Diagnosed 05/31/2021 (Active) Stage IIIC, T2a, N0, M0, P>=10<20, G5 Radiotherapy to date: Course: Prostate 2021, Treatment Site: Prostate- [facility], Ref. ID: [id number], Energy: 6X, Dose/Fx (cGy): 200, #Fx: 23 / , Dose Correction (cGy): 0, Total Dose (cGy): 4,600, Start Date: 08/20/2021, End Date: 09/20/2021, Elapsed Days: 31 Course: Prostate 2021, Treatment Site: [facility]state-[email or web address]], Ref. ID: [id number], Energy: 6X, Dose/Fx (cGy): 200, #Fx: 4 16, Dose Correction (cGy): 0, Total Dose (cGy): 800, Start Date: 09/21/2021, End Date: 09/26/2021, Elapsed Days: 5 Reason for visit: The patient is being seen today as part of their regularly scheduled weekly on treatment visits to assess for acute toxicities from radiotherapy. Review of Systems: He has mild fatigue. Appetite is normal. No complaints of pain. Bowel movements are near normal. Bladder function has changed somewhat during radiation. He has no hematuria, dysuria, or pyuria. He has noticed some hesitancy and slow stream at the initiation of urination. His stream then becomes strong and he has no difficulty at all emptying the bladder. Nocturia x2 or 3. He is scheduled to receive Zoladex today. Vital Signs: Performed on 09/26/2021 11:44 AM BMI - 32.175 kg/m2 (high), Height - 74 in, Weight - 250.6 lbs, Temperature - 97.3 f, Pulse - 59 /min (low), Respiration - 17 /min, O2 Sat - 96 %, Pain - 0, Fatigue - 0 and BP - 143/ 87 mm(hg)(high/). Physical Exam: Alert, oriented, no acute no acute distress. Breathing is quiet and unlabored. Normal gait without assistance. Imaging: Radiation therapy imaging related to accurate target localization (i.e. KV, MV and CBCT) was reviewed. Appropriate changes, if any, were made to ensure treatment accuracy. Plan: Continue RT as planned. Discussed Flomax but I do not believe he needs it now. He will go over to the medical oncology area and receive Zoladex. Signed by: Dr. Bud Johnson 09/26/2021 12:08:45 PM
[2021-09-26] MEDS: lidocaine 1% INJ 20 mL SUBCUT (12:30)
[2021-09-26] MEDS: goserelin acetate 10.8 mg Implant SUBCUT (12:37)
[2021-09-26 12:45] VITALS: BP 124/78; PULSE 74; RESP 18; TEMP 36.6; O2SAT 98
--- NOTE | 2021-10-02 15:00 | ONCRAD TMN_ITS ---
Radiation Oncology Weekly Treatment Management Patient: Tristan Quiñonez MR#: [id number] : 1955 Attending Physician: Dr. Bud Johnson Date of Service: 10/02/2021 Referring Physician(s) : Anabel Mathur M.D. Diagnosis: C61 - Malignant neoplasm of prostate, Diagnosed 05/31/2021 (Active) Stage IIIC, T2a, N0, M0, P>=10<20, G5 Radiotherapy to date: Course: Prostate 2021, Treatment Site: Prostate- [facility], Ref. ID: [id number], Energy: 6X, Dose/Fx (cGy): 200, #Fx: / , Dose Correction (cGy): 0, Total Dose (cGy): 4,600, Start Date: 08/20/2021, End Date: 09/20/2021, Elapsed Days: 31 Course: Prostate 2021, Treatment Site: Prostate-[facility], Ref. ID: [id number], Energy: 6X, Dose/Fx (cGy): 200, #Fx: , Dose Correction (cGy): 0, Total Dose (cGy): 1,600, Start Date: 09/21/2021, Elapsed Days: 11 Reason for visit: The patient is being seen today as part of their regularly scheduled weekly on treatment visits to assess for acute toxicities from radiotherapy. Review of Systems: Unchanged from last week. Mild fatigue. Slight hesitancy with urination. Completely empties without difficulty. No bowel problems at all. Vital Signs: Performed on 10/02/2021 2:42 PM BMI - 32.394 kg/m2 (high), Height - 74 in, Weight - 252.3 lbs, Temperature - 97.3 f, Pulse - 65 /min, Respiration - 20 /min, O2 Sat - 100 %, Pain - 0, Fatigue - 4 and BP - 136/ 81 mm(hg). Physical Exam: Alert, oriented, no acute distress. Breathing quiet and on labored. Ambulatory without assistance. Imaging: Radiation therapy imaging related to accurate target localization (i.e. KV, MV and CBCT) was reviewed. Appropriate changes, if any, were made to ensure treatment accuracy. Plan: Continue RT as planned. He did receive his Zoladex injection last week. Signed by: Dr. Bud Johnson 10/02/2021 2:59:52 PM
== END 2021-10-07 23:59 | disposition home or self-care (01) ==
PROVIDERS: Internal Medicine Hematology & Oncology; PCP Nurse Practitioner; Visit Provider Specialist
DX: Z51.0 Encounter for antineoplastic radiation therapy (principal); C61 Malignant neoplasm of prostate
CPT/HCPCS: 36415; 77300; 77336; 77338; 77385; 80053; 84403; 85025; 96372; 96402; 99215; J9202

== ENCOUNTER 2021-11-07 11:30 | Oncology outpatient (recurring) (ONCR) | payer OTHER, SELFPAY ==
--- NOTE | 2021-10-09 15:05 | ONCRAD TMN_ITS ---
Radiation Oncology Treatment Management Note Patient Name: Khang Hudson Date of : 1955 Date of Service: 10/09/2021 Attending Physician: Johnathan Gallegos M.D. Khang Hudson is a 65 year old black male diagnosed with a clinical stage IIIC (T2aN0), very high-risk prostate cancer. He initially was identified to have an elevated PSA level (9.6 ng/mL) in March by his primary care physician. He was referred to Taj Armendariz M.D. A digital rectal exam revealed a right prostatic lobe nodule. Repeat PSA level was 10.4 ng/mL. A transrectal ultrasound-guided biopsy performed on May 31, 2021 revealed a 53 cc prostate gland with bilateral hypoechoic lesions. The pathology report diagnosed an adenocarcinoma of the prostate gland with a Kassidy score of 5+5 = 10 (grade group 5) involving the right lateral apex (25%), right lateral mid gland (100%), right lateral base (100%), right apex (25%), right mid gland (100%), right base (100%), left lateral base (60%), left apex (60%), left mid gland (100%), and left base (100%). Perineural invasion was identified. A nuclear medicine bone scintigraphy scan and an abdominopelvic CT scan metastatic disease did not identify metastatic disease. A [id number] CDx genomic profiling was obtained. A tumor mutational burden of 4.7 mut/Mb was reported and high microsatellite instability was not detected. A GnRH agonist (Zoladex) was administered on June 27, 2021. The patient has received 72 Gy of a prescribed 78 Razo to the prostate and seminal vesicles. He has received neoadjuvant hormonal therapy. Upon review of systems, he described hemorrhoid symptoms and recent diarrhea. On physical examination, the patient weighed 256 lbs. His temperature was 96.5 ???F and the blood pressure was 131/77 mmHg. The pulse was 60 bpm and his respiratory rate was 18. There was no erythema in the treatment garcia. Continue pelvic radiotherapy as prescribed. I recommended Imodium and Tucks medicated wipes. Signed by: Dr. Johnathan Gallegos 10/09/2021 3:04:14 PM
--- NOTE | 2021-10-12 10:11 | N.ONRD TS_ITS ---
Radiation OncologyTreatment Summary Patient Name: Khang Hudson Date of : 1955 Date of Service: 10/12/2021 Attending Physician: Johnathan Gallegos M.D. Khang Hudson has completed definitive prostate radiotherapy for the management of a clinical stage IIIC (T2aN0), very high-risk prostate cancer. He initially was identified to have an elevated PSA level (9.6 ng/mL) in March by his primary care physician. He was referred to Taj Armendariz M.D. A digital rectal exam revealed a right prostatic lobe nodule. Repeat PSA level was 10.4 ng/mL. A transrectal ultrasound-guided biopsy performed on May 31, 2021 revealed a 53 cc prostate gland with bilateral hypoechoic lesions. The pathology report diagnosed an adenocarcinoma of the prostate gland with a Kassidy score of 5+5 = 10 (grade group 5) involving the right lateral apex (25%), right lateral mid gland (100%), right lateral base (100%), right apex (25%), right mid gland (100%), right base (100%), left lateral base (60%), left apex (60%), left mid gland (100%), and left base (100%). Perineural invasion was identified. A nuclear medicine bone scintigraphy scan and an abdominopelvic CT scan metastatic disease did not identify metastatic disease. A [id number] CDx genomic profiling was obtained. A tumor mutational burden of 4.7 mut/Mb was reported and high microsatellite instability was not detected. Cycle 2 of a GnRH agonist (Zoladex) was administered on September 26, 2021. Pelvic radiation therapy was delivered between the dates of August 20, 2021 through October 12, 2021. A prescribed dose of 78 Gy was delivered in 39 fractions encompassing 64 elapsed days. The prostate gland, seminal vesicles, and regional lymph node stations were treated utilizing an intensity modulated radiotherapy plan with a step and shoot treatment technique. The plan arranged nine gantry angles (0???, 40???, 80???, 120???, 160???, 200???, 240???, 280???, and 320???) replicating an arc. The collimator rotation was 0???. The field sizes spanned between 14.9 cm x 15.8 cm to 18.9 cm x 15.8 cm. The SSDs measured a minimum of 76.5 cm to a maximum of 87.4 cm. The ports delivered 255 MU, 226 MU, 166 MU, 160 MU, 184 MU, 194 MU, 187 MU, 200 MU, and 190 MU corresponding to the gantry angles described. The initial garcia began on August 20, 2021 and continued through September 20, 2021. A prescribed dose of 46 Razo was administered 23 fractions over 42 elapsed days. The prostate gland and seminal vesicles were subsequently treated incorporating and intensity modulated radiotherapy plan with a step and shoot treatment technique. The plan designed nine gantry angles (0???, 40???, 80???, 120???, 160???, 200???, 240???, 280???, and 320???) replicating an arc. The collimator rotation was 0???. The field measured between 8.6 cm x 8.8 cm to 9.3 cm x 8.8 cm. The SSD breadths were 76.4 cm to 87.5 cm. The ports allocated 150 MU, 100 MU, 85 MU, 93 MU, 129 MU, 120 MU, 91 MU, 93 MU, and 97 MU corresponding to the gantry angles described. The reduced ports started on September 21, 2021 and concluded on October 12, 2021. An additional 32 Gy was allocated in 16 fractions over 22 elapsed days. All treatments were performed with the Aimetis linear accelerator and an isocentric technique. High energy photons were prescribed. The dose was calculated by Anisotropic Analytic Algorithm with the plan normalized to deliver 100% of the prescription dose to 98% of the planning target volume. Signed by: Dr. Johnathan Gallegos 10/12/2021 10:09:53 AM
[2021-11-07 11:59] LABS: Basophils % 0.2 %; Eosinophils # 0.1 10^3/uL (0.0-0.8); Eosinophils % 1.1 %; Hematocrit 41.4 % (42.0-52.0); Hemoglobin 13.6 g/dL (11.7-16.6); Lymphocytes # 0.7 10^3/uL (0.8-4.8); Mean Corpuscular HGB Conc 32.9 g/dL (30.0-36.0); Mean Corpuscular Hemoglobin 31.9 pg (28.0-34.0); Mean Platelet Volume 11.3 fL (7.4-10.4); Monocytes # 0.8 10^3/uL (0.2-0.9); Monocytes % 16.7 %; Neutrophils # 2.99 10^3/uL (1.8-7.7); Neutrophils % 65.6 %; Nucleated Red Blood Cells % 0 %; Platelet Count 172 10^3/cmm (130-400); Red Blood Count 4.27 10^6/uL (4.1-5.3); Red Cell Distribution Width 14.6 % (12.1-15.1); White Blood Count 4.6 10^3/uL (4.0-10.0)
[2021-11-07 12:30] LABS: Alanine Aminotransferase 31 U/L (0-41); Albumin Level 4.6 g/dL (3.5-5.2); Alkaline Phosphatase 219 U/L (40-130); Anion Gap 12.6 (5-19); Aspartate Amino Transferase 25 U/L (0-40); Blood Urea Nitrogen 14 mg/dL (8-23); Calcium 9.8 mg/dL (8.5-10.5); Carbon Dioxide 29 mmol/L (22-29); Chloride 99 mmol/L (98-107); Globulin 2.9 g/dL (1.3-4.6); Glomerular Filtration Rate 102.5 mL/min (90-130); Glucose 107 mg/dL (65-115); Osmolality Calculated 285 mOsm/kg (285-295); Potassium 3.6 mmol/L (3.5-5.1); Sodium 137 mmol/L (136-145); Total Bilirubin 0.3 mg/dL (0.15-1.2); Total Protein 7.5 g/dL (6.6-8.7)
--- NOTE | 2021-11-07 14:27 | ONCRAD EPV_ITS ---
Radiation Oncology Established Patient Visit Patient: Tristan Quiñonez [id number] : 1955 Age: 66 Sex: Male> Dictated by: Dr. Dewey Johnson Date of Service: 11/07/2021 Referring Physician(s) : Anabel Mathur M.D. Diagnosis: C61 - Malignant neoplasm of prostate, Diagnosed 05/31/2021 (Active) Stage IIIC, T2a, N0, M0, P>=10<20, G5 Prostate cancer Mr. Khang Hudson, is a 65-year-old gentleman with history of progressive PSA level underwent NICKOLAS on May 31, 2021 which showed distinct right-sided nodularity, subsequently underwent TRUS P/biopsy on May 31, 2021 and pathology confirmed large volume, Kassidy score 5+5, grade group 5 in 10 of 12 cores. Lymphovascular/perineural invasion seen. CT scan of abdomen pelvis done on June 08, 2021 showed no mass or lymphadenopathy bone scan done on June 14, 2021 shows no evidence of osseous metastatic disease. His PSA level on May 04, 2021 was 10.4 Smoke about half pack a day, is a social drinker Past medical history significant for arthritis involving lower lumbar spine and shoulder, hypertension, hypercholesterolemia No family history significant for prostate cancer Denies any fever chills denies any dysuria or hematuria denies any new bony pain except chronic lower back pain probably due to arthritis as bone scan/CT scan of abdomen pelvis done recently showed no evidence of bone mets, as per patient, Dr. Armendariz, urologist, informed him that he is not a candidate for surgery so he is here to discuss about his treatment options Radiotherapy to Date: Course: Prostate 2021, Treatment Site: Prostate- HR, Ref. ID: [id number], Energy: 6X, Dose/Fx (cGy): 200, #Fx: , Dose Correction (cGy): 0, Total Dose (cGy): 4,600, Start Date: 08/20/2021, End Date: 09/20/2021, Elapsed Days: Course: Prostate 2021, Treatment Site: Prostate-Bst, Ref. ID: [id number], Energy: 6X, Dose/Fx (cGy): 200, #Fx: 16 / 16, Dose Correction (cGy): 0, Total Dose (cGy): 3,200, Start Date: 09/21/2021, End Date: 10/12/2021, Elapsed Days: 21 Current History: Mr. Hudson completed radiation for prostate cancer approximately 4 weeks ago. His performance status has been good, though he has noted some fatigue. His appetite is normal. He has had no problems at all with bowel movements. His urinary pattern has changed related to radiation. He has more frequency during the day, though he has been drinking increased amounts of water. He has nocturia x3 compared to x1 prior to radiation. He states the first time he gets up at night he has considerable hesitancy but after that no problem at all. He states that he always feels as though he completely empties his bladder. He denies hematuria, not pyuria, or dysuria. Current Medications: AmLODIPine Besylate, aspirin, celecoxib, chlorpheniramine Maleate, omeprazole, rosuvastatin Calcium, vitamin D3. Allergies: No Known Allergies Current Complaints / Review of Systems: . Vital Signs: Performed on 11/07/2021 1:33 PM BMI - 32.278 kg/m2 (high), Height - 74 in, Weight - 251.4 lbs, Temperature - 97.3 f, Pulse - 92 /min, Respiration - 18 /min, O2 Sat - 95 % (low), Pain - 0, Fatigue - 0 and BP - 123/ 74 mm(hg). Physical Exam: General: Alert and oriented x 3. No acute distress. HEENT: Normocephalic, atraumatic. Extraocular Movements Intact: NECK: Supple without supraclavicular or jugular lymphadenopathy. LUNGS: Clear to auscultation bilaterally without rales, rhonchi or wheeze. HEART: Regular rate and rhythm, normal S1 and S2 without murmur, gallop or rub. MUSCULOSKELETAL: No tenderness or percussion pain over the axial skeleton, scapulae or pelvis. ABDOMEN: Soft, nontender, nondistended without masses or organomegaly. Bowell sounds are present. NEUROLOGIC: Cranial nerves II ???XII are grossly intact. Normal sensation, strength 5/5 in all extremities, normal gait, no ataxia. Performance Status: Lab: None pending. Pathology: Primary, c61 - malignant neoplasm of prostate, Diagnosed 05/31/2021 (active) stage iiic, t2a, n0, m0, p>=10<20, g5. Imaging: See HPI Impression: Overall he tolerated radiation well. He still has mild urinary tract symptoms. I discussed that that with him and told him that I would expect his symptoms to improve over the next 2 months. He has decided to proceed with aggressive systemic therapy. He will be having a port placed and starting chemotherapy in the near future. He will follow-up with Dr. Mathur. Signed by: 11/07/2021 2:25:31 PM <<Signature on File>> Time spent with patient: CPT Code: CPT Code:
== END 2021-11-07 23:59 | disposition home or self-care (01) ==
PROVIDERS: Nurse Practitioner Family; PCP Nurse Practitioner; Visit Provider Radiology Radiation Oncology
DX: C61 Malignant neoplasm of prostate; F17.210 Nicotine dependence, cigarettes, uncomplicated; Z79.818 Long term (current) use of other agents affecting estrogen receptors and estrogen levels; Z79.899 Other long term (current) drug therapy; R97.21 Rising PSA following treatment for malignant neoplasm of prostate; Z92.3 Personal history of irradiation
CPT/HCPCS: 36415; 77336; 77385; 80053; 84153; 85025; 99214; 99215

== ENCOUNTER → 2021-11-20 09:18 | Outpatient (BNVA) | payer OTHER, SELFPAY | PROVIDERS: PCP Nurse Practitioner; Visit Provider Surgery | DX: C61 Malignant neoplasm of prostate (principal) | CPT/HCPCS: 99203 ==

== ENCOUNTER 2021-11-29 10:24 | Day surgery (SDC) | payer OTHER, SELFPAY ==
[2021-11-28 13:33] VITALS: BMI 32.1
--- NOTE | 2021-11-29 | SCC_ITS ---
Procedure done: Mediport insertion 18.2 seconds of fluoroscopic guidance, for a cumulative dose of 4.1 mGy, was provided to Dr. Paulino by the radiology department. C-arm images of the chest were saved for the patient's permanent record. [facility]
--- NOTE | 2021-11-29 10:10 | P.ANESASSM_ITS ---
Pre-Anesthetic Assessment Height/Weight: Height 1.88 m Weight 113.398 kg Preop Diagnosis: Prostate cancer Operation Date: 11/29/21 12:25 Proposed Procedures p Portacath Placement 94422,C61,Z95.828(Not Applicable) - Isacc Paulino DO Familial anesthetic complications: none Was Beta Yvonne taken within 24 hours: N/A Was Clonidine taken within 24 hours: N/A Last intake: 11/28/21 Social No alcohol and No tobacco Exam alert, oriented x 3, clear to auscultation bilaterally and regular rate & rhythm Airway Submandibular: within normal limits Cervical ROM: within normal limits Mallampati: Class II Dentition: false History/ROS No significant complaints Pulmonary Chronic Obstructive Pulmonary Disease CV/HEM Hypertension None reported Hematuria Prostate cancer Hepatic None reported GI Gastroesophageal Reflux Disease (WC ) Metabolic Diabetes Mellitus and Hyperlipidemia Musc/skel Osteoarthritis/DJD Inguinal hernia Neuropsych None reported Anesthetic Plan ASA status: 3 Anesthesia: Anesthesia Evaluation, General and MAC Other: We discussed risk and benefits of general anesthesia including PONV, sore throat (sometimes severe), corneal abrasion, positioning and peripheral nerve injuries, life threatening allergic reaction, post operative ICU admission requiring prolonged intubation, aspiration, stroke, heart attack, , and rare incidences of recall. I discussed with the patient risks, goals, and benefits of MAC and general an esthesia. We discussed spectrum of MAC anesthesia including conversion to general as well as possibility of recall of intraoperative stimuli including discomfort/pain. Patient consents to MAC or General pending further discussion with surgeon. Risk of > 500 ml blood loss (7ml/kg in children): No Medications/Allergies Home Medications Medication Instructions Recorded Confirmed Last Taken Type aspirin 81 mg tablet,delayed 81 mg PO DAILY 04/26/19 11/29/21 05/19/19 06:00 History release (Adult Low Dose Aspirin) budesonide-formoterol HFA 80 2 puff inhalation BID 05/19/19 11/29/21 11/28/21 History mcg-4.5 mcg/actuation aerosol inhaler (Symbicort) omeprazole 20 mg capsule,delayed 20 mg PO DAILY 05/19/19 11/29/21 11/29/21 08:00 History release amlodipine 5 mg tablet 2.5 mg PO DAILY 05/04/21 11/29/21 11/29/21 08:00 History hydrochlorothiazide 25 mg tablet 25 mg PO DAILY 05/04/21 11/29/21 11/28/21 History rosuvastatin 10 mg tablet 5 mg PO DAILY 05/04/21 11/29/21 11/28/21 History lorazepam 0.5 mg tablet (Ativan) See Rx Instructions PO .Q6-8Hr PRN 08/03/21 0 11/29/21 11/29/21 08:00 Rx anxiety #30 tabs tramadol 50 mg tablet 50 mg PO BID PRN Pain, Moderate 08/03/21 11/29/21 11/29/21 08:00 History meloxicam 15 mg tablet 15 mg PO DAILY #90 tabs 09/26/21 11/29/21 11/28/21 Rx empagliflozin 25 mg tablet 25 mg PO DAILY 11/28/21 11/29/21 11/28/21 History Allergies Allergy/AdvReac Type Severity Reaction Status Date / Time No Known Allergies Allergy Verified 11/29/21 10:53 [facility] Anesthesia Medical History Accelerated essential hypertension BPH w/o urinary obs/LUTS Cataracts, bilateral Elevated PSA Enlarged lymph nodes Epididymitis GERD (gastroesophageal reflux disease) Gross hematuria Hypercholesterolemia Hyperlipidemia Hypertension Inguinal hernia Osteoarthritis Prediabetes Rotator cuff tear, non-traumatic Surgical History H/O prostate biopsy History of rotator cuff surgery left shoulder Hx of hernia repair Hx of prostate biopsy Family History Mother , AT AGE 64 Diabetes Hypertension Hyperlipidemia Father , AT AGE 66 Cancer LUNG Hyperlipidemia Denies family history of CAD (coronary artery disease) Clotting disorder Dementia Psychiatric illness Chronic kidney disease (CKD) Suicide Anesthesia complication Bleeding disorder Lung disease Stroke Social History Smoking and tobacco status: current every day smoker (half a pack ) cigarettes Packs smoked per day: 0.5 Alcohol intake: current Alcohol intake frequency: 0-2 Drinks per Day Marital status: Current occupational status: retired History of recent travel: No Data Anesthesia Cardiac Studies: No Data to Display
--- NOTE | 2021-11-29 10:32 | SC_ITS ---
WS: [id number] C-arm fluoroscopy for insertion of infusion port, 11/29/2021 Clinical Data: Mediport insertion Comparison: None. Findings: An infusion catheter enters the left subclavian vein and ends in the superior vena cava. SC/C-arm FL for CVA [id number] Impression: Insertion of infusion port.
--- NOTE | 2021-11-29 10:32 | XR_ITS ---
WS: [id number] Portable AP upright chest, 11/29/2021 Clinical Data: Postop Mediport insertion Comparison: PA and lateral chest, 09/26/2021. Findings: No nodules, masses or effusions are seen. The heart is enlarged. The aortic arch and descen ding thoracic aorta show tortuosity and minimal calcification. No pneumonia or pneumothorax is presen t. There is an infusion catheter entering the left subclavian vein and ending in the superior vena ca va. There is a monitor lead over the chest wall. There is an orthopedic staple overlying the left hum eral head. XR/XR chest 1V portable [id number] Impression: Cardiomegaly and atherosclerosis.
--- NOTE | 2021-11-29 10:34 | W.PM.OPSUD ---
Surgery/Procedure H&P Update DATE OF PROCEDURE: November 29, 2021 DATE H&P PERFORMED: 11/20/21 PREOP DIAGNOSIS: Prostate Cancer PLANNED PROCEDURE: Operation Date: 11/29/21 12:25 Proposed Procedures p Portacath Placement 09126,C61,Z95.828(Not Applicable) - Isacc Paulino DO
[2021-11-29 11:04] LABS: Glucose Point of Care 103 mg/dL (70-110)
[2021-11-29] MEDS: sodium chloride 0.9% 1,000 ML 30 ML IV (11:05)
[2021-11-29 11:14] VITALS: BP 134/76; PULSE 67; RESP 18; TEMP 36.4; O2SAT 96
[2021-11-29] MEDS: ceFAZolin 2,000 MG in sodium chloride 0.9% (plus) 50 ML 100 MG IV (11:15)
[2021-11-29] MEDS: heparin, porcine 1,000 unit/mL INJ 10 mL 10000 UNIT INJECTION (11:32)
--- NOTE | 2021-11-29 11:48 | PM.OP ---
Operative Report Date of procedure: November 29, 2021 Pre-op diagnosis: Preop Diagnosis Prostate Cancer Post-op diagnosis: same Procedure done: Mediport insertion Implants: PowerPort Surgeon: Dr. Isacc Paulino, DO Anesthesia: MAC Estimated blood loss (mL): 3 Complications: None apparent Brief History: This is a very pleasant 66-year-old male with prostate cancer in need of a Mediport. The risks and benefits of this procedure were explained and documented Procedure: Patient was taken to the operating room and placed supine on the operating room table. All bony prominences were padded. She was given IV sedation and monitored throughout the case by the anesthesia personnel. SCDs were placed and turned on. The arms were tucked to the side. Patient received Ancef? 2 g preoperatively IV. The bilateral chest wall was prepped and draped in usual sterile fashion using chlorhexidine base prep. Sterile drapes were applied. We did procedure pause prior to beginning. ? An 18 gauge needle was placed in the eft subclavian vein. Dark, nonpulsatile blood was aspirated. A guidewire was placed through the needle centrally toward the atrial/vena caval junction. Fluoroscopy visualized good placement. The needle was removed and the guidewire was clipped to the drape with a hemostat. ? Further local anesthetic was infiltrated in the soft tissues of the right/left chest wall and a #15 blade was used to make a horizontal skin incision. A subcutaneous Mediport pocket was created using Bovie cautery, dissecting down through the skin and subcutaneous tissues. Meticulous hemostasis was achieved. The Mediport was sutured in position using 3-0 vicryl suture x2 stitches. ? A #15 blade was used to make a small skin aftab around the guidewire insertion area. The Mediport tubing was tunneled through the subcutaneous tissues up to the needle insertion location. ? A dilator with a peel-away sheath was placed over the guidewire and placed centrally. After measuring with fluoroscopy, the Mediport tubing was cut to length so that the tip would end at the atrial/vena caval junction. The inner cannula and the guidewire were removed, leaving the dilator sheath in place. The Mediport was flushed. The tip of the catheter was inserted through the peel-away sheath and the peel-away sheath removed in the standard fashion. The Mediport was accessed with a straight Gallegos needle and dark, nonpulsatile blood was aspirated and flushed using heparinized saline to hep-lock the Mediport.? Final fluoroscopy visualization showed no kink in the catheter and the tip of the Mediport tubing near the atrial/vena caval junction. ? Both skin incisions were thoroughly irrigated and suctioned dry. Meticulous hemostasis noted. The Mediport incision was closed using interrupted 3-0 Vicryl suture for the deep dermal layer and 4-0 Vicryl run to close the skin edge. The left subclavian insertion site incision was closed with a single subcuticular stitch. Skin glue was applied as a topical dressing. This was allowed to dry. Patient was awakened from anesthesia and transferred via her cart to the recovery room in stable condition. All needle, sponge, and instrument counts were correct per the operating personnel x2 counts.
[2021-11-29 11:56] VITALS: BP 152/86; PULSE 57; RESP 20; TEMP 36.8; O2SAT 94
[2021-11-29 12:00] VITALS: BP 151/83; PULSE 61; RESP 23; O2SAT 95
[2021-11-29 12:05] VITALS: BP 186/95; PULSE 61; RESP 25; TEMP 36.9; O2SAT 94
[2021-11-29 12:15] VITALS: BP 154/90; PULSE 55; RESP 18; TEMP 36.5; O2SAT 100
[2021-11-29] MEDS: HYDROcodone-acetaminophen 7.5-325 mg Tablet 1 TAB PO (12:33)
[2021-11-29 12:39] VITALS: BP 145/99; PULSE 59; RESP 18; O2SAT 94
--- NOTE | 2021-11-29 15:20 | ANE.PACU2 ---
Inpatient post-anesthesia follow up: Airway intact: Yes Vital signs: Temperature 97.7 F Pulse Rate 59 Respiratory Rate 18 Blood Pressure 145/99 Pulse Oximetry 94 Oxygen Delivery Me thod Room Air Oxygen Flow Rate Fraction of Inspir ed Oxygen Hydration adequate: Yes Nausea and vomiting: No Pain level: 1 Mental status: Baseline
== END 2021-11-29 12:45 | disposition home or self-care (01) ==
PROVIDERS: PCP Internal Medicine Hematology & Oncology; Visit Provider Surgery
PROC: (CPT 36561; principal; 2021-11-29 12:15)
DX: C61 Malignant neoplasm of prostate (principal); Z95.828 Presence of other vascular implants and grafts; J44.9 Chronic obstructive pulmonary disease, unspecified; I10 Essential (primary) hypertension; K21.9 Gastro-esophageal reflux disease without esophagitis; E11.9 Type 2 diabetes mellitus without complications; Z79.82 Long term (current) use of aspirin; N40.1 Benign prostatic hyperplasia with lower urinary tract symptoms; N13.8 Other obstructive and reflux uropathy; E78.00 Pure hypercholesterolemia, unspecified; E78.5 Hyperlipidemia, unspecified; M19.90 Unspecified osteoarthritis, unspecified site; F17.210 Nicotine dependence, cigarettes, uncomplicated
CPT/HCPCS: 36561; 36416; 71045; 76000; 77001; 82962; C1788; J1644; J7030

== ENCOUNTER → 2021-12-31 08:01 | Outpatient (BNVA) | payer OTHER, SELFPAY | PROVIDERS: PCP Internal Medicine Hematology & Oncology; Visit Provider Nurse Practitioner | DX: C61 Malignant neoplasm of prostate (principal) | CPT/HCPCS: 99214 ==

== ENCOUNTER 2022-01-07 10:00 | Oncology outpatient (recurring) (ONCR) | payer OTHER, SELFPAY ==
[2021-12-10 11:46] LABS: Basophils % 0.1 %; Hematocrit 39.5 % (42.0-52.0); Lymphocytes # 0.4 10^3/uL (0.8-4.8); Lymphocytes % 5.4 %; Mean Corpuscular HGB Conc 32.9 g/dL (30.0-36.0); Mean Corpuscular Hemoglobin 32.5 pg (28.0-34.0); Mean Corpuscular Volume 98.8 fl (80-94); Mean Platelet Volume 11.1 fL (7.4-10.4); Monocytes # 0.4 10^3/uL (0.2-0.9); Monocytes % 4.6 %; Neutrophils # 6.71 10^3/uL (1.8-7.7); Neutrophils % 89.2 %; Nucleated Red Blood Cells % 0.3 %; Platelet Count 170 10^3/cmm (130-400); Red Cell Distribution Width 14.3 % (12.1-15.1); White Blood Count 7.5 10^3/uL (4.0-10.0)
[2021-12-10 12:26] LABS: Anion Gap 15.1 (5-19); Blood Urea Nitrogen 19 mg/dL (8-23); Calcium 9.7 mg/dL (8.5-10.5); Carbon Dioxide 25 mmol/L (22-29); Chloride 104 mmol/L (98-107); Glomerular Filtration Rate 102.5 mL/min (90-130); Glucose 135 mg/dL (65-115); Osmolality Calculated 294 mOsm/kg (285-295); Potassium 4.1 mmol/L (3.5-5.1); Sodium 140 mmol/L (136-145)
[2021-12-10] MEDS: sodium chloride 0.9% 250 ML 75 ML IV (13:52)
[2021-12-10] MEDS: famotidine 20 mg/2 mL INJ IVP (13:53)
[2021-12-10] MEDS: diphenhydrAMINE 50 mg/mL SDV 1mL 25 MG IVP (13:53)
[2021-12-10] MEDS: palonosetron 0.25 mg/5 mL SDV IVP (13:54)
[2021-12-10 14:26] VITALS: BMI 32.4
[2021-12-10 16:13] VITALS: BP 111/64; PULSE 66; RESP 16; TEMP 36.1; O2SAT 98
[2021-12-18] MEDS: alteplase 1 mg/mL SDV 2 mL 2 MG INTRACATH (08:34)
[2021-12-18 08:42] VITALS: BMI 32.0
[2021-12-18 08:50] LABS: Basophils % 1.1 %; Eosinophils % 0.6 %; Hematocrit 39.7 % (42.0-52.0); Hemoglobin 12.9 g/dL (11.7-16.6); Lymphocytes # 0.5 10^3/uL (0.8-4.8); Lymphocytes % 27.6 %; Mean Corpuscular HGB Conc 32.5 g/dL (30.0-36.0); Mean Corpuscular Hemoglobin 31.8 pg (28.0-34.0); Mean Corpuscular Volume 97.8 fl (80-94); Mean Platelet Volume 10.7 fL (7.4-10.4); Monocytes # 0.3 10^3/uL (0.2-0.9); Monocytes % 14.9 %; Neutrophils # 0.99 10^3/uL (1.8-7.7); Neutrophils % 54.7 %; Nucleated Red Blood Cells # 0.1 /100WBC; Nucleated Red Blood Cells % 5.5 %; Platelet Count 173 10^3/cmm (130-400); Red Blood Count 4.06 10^6/uL (4.1-5.3); Red Cell Distribution Width 14.3 % (12.1-15.1); White Blood Count 1.8 10^3/uL (4.0-10.0)
[2021-12-18 09:08] LABS: Alanine Aminotransferase 30 U/L (0-41); Albumin Level 3.9 g/dL (3.5-5.2); Alkaline Phosphatase 170 U/L (40-130); Aspartate Amino Transferase 25 U/L (0-40); Blood Urea Nitrogen 15 mg/dL (8-23); Calcium 9.3 mg/dL (8.5-10.5); Carbon Dioxide 29 mmol/L (22-29); Chloride 100 mmol/L (98-107); Globulin 2.9 g/dL (1.3-4.6); Glomerular Filtration Rate 90.7 mL/min (90-130); Glucose 111 mg/dL (65-115); Osmolality Calculated 292 mOsm/kg (285-295); Sodium 140 mmol/L (136-145); Total Bilirubin 0.3 mg/dL (0.15-1.2); Total Protein 6.8 g/dL (6.6-8.7)
[2021-12-25] MEDS: alteplase 1 mg/mL SDV 2 mL 2 MG INTRACATH (08:26)
[2021-12-25 08:40] VITALS: BMI 32.8
[2021-12-25 09:00] LABS: Basophils % 1.6 %; Eosinophils % 0.5 %; Hematocrit 43.3 % (42.0-52.0); Hemoglobin 13.9 g/dL (11.7-16.6); Lymphocytes # 0.6 10^3/uL (0.8-4.8); Lymphocytes % 33.2 %; Mean Corpuscular HGB Conc 32.1 g/dL (30.0-36.0); Mean Corpuscular Hemoglobin 31.7 pg (28.0-34.0); Mean Corpuscular Volume 98.9 fl (80-94); Mean Platelet Volume 10.9 fL (7.4-10.4); Monocytes # 0.7 10^3/uL (0.2-0.9); Monocytes % 36.3 %; Neutrophils % 27.9 %; Nucleated Red Blood Cells % 0 %; Platelet Count 169 10^3/cmm (130-400); Red Blood Count 4.38 10^6/uL (4.1-5.3); Red Cell Distribution Width 14.1 % (12.1-15.1); White Blood Count 1.9 10^3/uL (4.0-10.0)
[2021-12-25 09:04] LABS: Neutrophils # 0.53 10^3/uL (1.8-7.7)
[2021-12-25 09:05] LABS: Slide Review Slide Review Perform
[2021-12-25 09:24] LABS: Alanine Aminotransferase 27 U/L (0-41); Albumin Level 3.9 g/dL (3.5-5.2); Alkaline Phosphatase 184 U/L (40-130); Anion Gap 13.7 (5-19); Aspartate Amino Transferase 29 U/L (0-40); Blood Urea Nitrogen 16 mg/dL (8-23); Calcium 9.9 mg/dL (8.5-10.5); Carbon Dioxide 29 mmol/L (22-29); Chloride 102 mmol/L (98-107); Globulin 3.4 g/dL (1.3-4.6); Glomerular Filtration Rate 102.5 mL/min (90-130); Glucose 108 mg/dL (65-115); Osmolality Calculated 292 mOsm/kg (285-295); Potassium 4.7 mmol/L (3.5-5.1); Sodium 140 mmol/L (136-145); Total Bilirubin 0.2 mg/dL (0.15-1.2); Total Protein 7.3 g/dL (6.6-8.7)
[2021-12-25] MEDS: leuprolide 22.5 mg Kit IM (10:10)
[2021-12-31 08:35] LABS: Basophils % 0.5 %; Eosinophils # 0.1 10^3/uL (0.0-0.8); Eosinophils % 1.2 %; Hematocrit 39.9 % (42.0-52.0); Hemoglobin 13.2 g/dL (11.7-16.6); Lymphocytes # 0.7 10^3/uL (0.8-4.8); Lymphocytes % 17.1 %; Mean Corpuscular HGB Conc 33.1 g/dL (30.0-36.0); Mean Corpuscular Hemoglobin 32.2 pg (28.0-34.0); Mean Corpuscular Volume 97.3 fl (80-94); Mean Platelet Volume 10.9 fL (7.4-10.4); Monocytes # 0.7 10^3/uL (0.2-0.9); Monocytes % 16.8 %; Neutrophils # 2.55 10^3/uL (1.8-7.7); Neutrophils % 63.2 %; Nucleated Red Blood Cells % 0.7 %; Platelet Count 167 10^3/cmm (130-400); Red Cell Distribution Width 14.1 % (12.1-15.1)
[2021-12-31 09:07] LABS: Alanine Aminotransferase 25 U/L (0-41); Alkaline Phosphatase 182 U/L (40-130); Blood Urea Nitrogen 14 mg/dL (8-23); Calcium 9.4 mg/dL (8.5-10.5); Carbon Dioxide 27 mmol/L (22-29); Chloride 102 mmol/L (98-107); Globulin 2.7 g/dL (1.3-4.6); Glomerular Filtration Rate 90.7 mL/min (90-130); Glucose 132 mg/dL (65-115); Osmolality Calculated 292 mOsm/kg (285-295); Prostate Specific Antigen 0.016 ng/mL (0-4); Sodium 140 mmol/L (136-145); Total Bilirubin 0.2 mg/dL (0.15-1.2); Total Protein 6.7 g/dL (6.6-8.7)
[2021-12-31 09:10] LABS: Anion Gap 14.7 (5-19); Aspartate Amino Transferase 26 U/L (0-40); Potassium 3.7 mmol/L (3.5-5.1)
[2022-01-01] MEDS: sodium chloride 0.9% 250 ML 75 ML IV (09:21)
[2022-01-01] MEDS: famotidine 20 mg/2 mL INJ IVP (09:22)
[2022-01-01] MEDS: diphenhydrAMINE 50 mg/mL SDV 1mL 25 MG IVP (09:26)
[2022-01-01] MEDS: palonosetron 0.25 mg/5 mL SDV IVP (09:36)
[2022-01-01 09:53] VITALS: BMI 32.8
[2022-01-01 12:00] VITALS: BP 122/78; PULSE 66; RESP 18; TEMP 35.8; O2SAT 95
[2022-01-07] MEDS: alteplase 1 mg/mL SDV 2 mL 2 MG INTRACATH (11:03)
[2022-01-07 11:05] LABS: Basophils # 0.1 10^3/uL (0.0-0.1); Basophils % 4.7 %; Hematocrit 39.9 % (42.0-52.0); Hemoglobin 13.4 g/dL (11.7-16.6); Lymphocytes # 0.4 10^3/uL (0.8-4.8); Lymphocytes % 22.3 %; Mean Corpuscular HGB Conc 33.6 g/dL (30.0-36.0); Mean Corpuscular Hemoglobin 32.1 pg (28.0-34.0); Mean Corpuscular Volume 95.5 fl (80-94); Mean Platelet Volume 11.3 fL (7.4-10.4); Monocytes # 0.1 10^3/uL (0.2-0.9); Monocytes % 3.6 %; Neutrophils # 1.19 10^3/uL (1.8-7.7); Neutrophils % 61.7 %; Nucleated Red Blood Cells % 0 %; Platelet Count 164 10^3/cmm (130-400); Red Blood Count 4.18 10^6/uL (4.1-5.3); Red Cell Distribution Width 14.4 % (12.1-15.1); White Blood Count 1.9 10^3/uL (4.0-10.0)
[2022-01-07 11:21] LABS: Alanine Aminotransferase 25 U/L (0-41); Albumin Level 3.9 g/dL (3.5-5.2); Alkaline Phosphatase 167 U/L (40-130); Anion Gap 15.2 (5-19); Aspartate Amino Transferase 19 U/L (0-40); Blood Urea Nitrogen 12 mg/dL (8-23); Calcium 9.4 mg/dL (8.5-10.5); Carbon Dioxide 26 mmol/L (22-29); Chloride 100 mmol/L (98-107); Globulin 2.6 g/dL (1.3-4.6); Glomerular Filtration Rate 117.4 mL/min (90-130); Glucose 109 mg/dL (65-115); Osmolality Calculated 284 mOsm/kg (285-295); Potassium 4.2 mmol/L (3.5-5.1); Sodium 137 mmol/L (136-145); Total Bilirubin 0.3 mg/dL (0.15-1.2); Total Protein 6.5 g/dL (6.6-8.7)
[2022-01-07 11:32] LABS: Slide Review Slide Review Perform
== END 2022-01-07 23:59 | disposition home or self-care (01) ==
PROVIDERS: Internal Medicine Medical Oncology; Nurse Practitioner; PCP Internal Medicine Hematology & Oncology; Visit Provider Radiology Radiation Oncology
DX: C61 Malignant neoplasm of prostate (principal)
CPT/HCPCS: 36415; 36591; 36593; 80048; 80053; 84153; 85025; 96367; 96375; 96402; 96413; 99203; 99214; 99215; J1100; J1200; J2469; J2997; J3490; J7050; J9171; J9217

== ENCOUNTER → 2022-01-21 08:27 | Outpatient (BNVA) | payer OTHER, SELFPAY | PROVIDERS: PCP Internal Medicine Hematology & Oncology; Visit Provider Internal Medicine Hematology & Oncology | DX: C61 Malignant neoplasm of prostate (principal) | CPT/HCPCS: 99214 ==

== ENCOUNTER 2022-01-29 08:30 | Oncology outpatient (recurring) (ONCR) | payer OTHER, SELFPAY ==
[2022-01-14 10:04] VITALS: BP 128/84; PULSE 76; RESP 20; TEMP 35.7
[2022-01-14] MEDS: alteplase 1 mg/mL SDV 2 mL 2 MG INTRACATH (10:18)
[2022-01-14 11:03] LABS: Basophils % 0.6 %; Eosinophils % 0.6 %; Hematocrit 42.1 % (42.0-52.0); Hemoglobin 13.5 g/dL (11.7-16.6); Lymphocytes # 0.5 10^3/uL (0.8-4.8); Lymphocytes % 31.2 %; Mean Corpuscular HGB Conc 32.1 g/dL (30.0-36.0); Mean Corpuscular Hemoglobin 30.8 pg (28.0-34.0); Mean Corpuscular Volume 96.1 fl (80-94); Mean Platelet Volume 10.7 fL (7.4-10.4); Monocytes # 0.4 10^3/uL (0.2-0.9); Monocytes % 27.4 %; Neutrophils % 37.7 %; Nucleated Red Blood Cells % 2.5 %; Platelet Count 111 10^3/cmm (130-400); Red Blood Count 4.38 10^6/uL (4.1-5.3); Red Cell Distribution Width 14.5 % (12.1-15.1); White Blood Count 1.6 10^3/uL (4.0-10.0)
[2022-01-14 11:25] LABS: Alanine Aminotransferase 24 U/L (0-41); Albumin Level 3.9 g/dL (3.5-5.2); Alkaline Phosphatase 175 U/L (40-130); Aspartate Amino Transferase 22 U/L (0-40); Blood Urea Nitrogen 16 mg/dL (8-23); Calcium 9.8 mg/dL (8.5-10.5); Carbon Dioxide 25 mmol/L (22-29); Chloride 99 mmol/L (98-107); Glomerular Filtration Rate 90.7 mL/min (90-130); Glucose 148 mg/dL (65-115); Osmolality Calculated 282 mOsm/kg (285-295); Sodium 134 mmol/L (136-145); Total Bilirubin 0.2 mg/dL (0.15-1.2); Total Protein 6.9 g/dL (6.6-8.7)
[2022-01-14 11:27] LABS: Anion Gap 13.8 (5-19); Potassium 3.8 mmol/L (3.5-5.1)
[2022-01-14 11:37] LABS: Slide Review Slide Review Perform
[2022-01-14 11:38] LABS: Neutrophils # 0.59 10^3/uL (1.8-7.7)
--- NOTE | 2022-01-14 13:46 | PC.NURSE ---
[id number] patient spouse called notified that the patients ANC is low which is the cells that fight off bacteria. Monitor patient for s/s of infection and to start Levaquin if patient develops a fever. Spouse able to repeat instructions and states she has levaquin on hand at home if fever is to arise. No other needs at this time.
[2022-01-21] MEDS: alteplase 1 mg/mL SDV 2 mL 2 MG INTRACATH (08:44)
[2022-01-21 09:21] LABS: Basophils % 0.6 %; Eosinophils % 0.2 %; Hematocrit 42.9 % (42.0-52.0); Hemoglobin 14.1 g/dL (11.7-16.6); Lymphocytes # 0.8 10^3/uL (0.8-4.8); Lymphocytes % 15.3 %; Mean Corpuscular HGB Conc 32.9 g/dL (30.0-36.0); Mean Corpuscular Hemoglobin 30.9 pg (28.0-34.0); Mean Corpuscular Volume 94.1 fl (80-94); Mean Platelet Volume 10.3 fL (7.4-10.4); Monocytes % 18.6 %; Neutrophils # 3.22 10^3/uL (1.8-7.7); Neutrophils % 63.1 %; Nucleated Red Blood Cells # 0.1 /100WBC; Nucleated Red Blood Cells % 1.4 %; Platelet Count 198 10^3/cmm (130-400); Red Blood Count 4.56 10^6/uL (4.1-5.3); Red Cell Distribution Width 14.6 % (12.1-15.1); White Blood Count 5.1 10^3/uL (4.0-10.0)
[2022-01-21 09:42] LABS: Alanine Aminotransferase 23 U/L (0-41); Albumin Level 4.2 g/dL (3.5-5.2); Alkaline Phosphatase 182 U/L (40-130); Anion Gap 15.9 (5-19); Aspartate Amino Transferase 23 U/L (0-40); Blood Urea Nitrogen 14 mg/dL (8-23); Calcium 10.1 mg/dL (8.5-10.5); Carbon Dioxide 25 mmol/L (22-29); Chloride 102 mmol/L (98-107); Globulin 2.7 g/dL (1.3-4.6); Glomerular Filtration Rate 117.4 mL/min (90-130); Glucose 102 mg/dL (65-115); Osmolality Calculated 289 mOsm/kg (285-295); Potassium 3.9 mmol/L (3.5-5.1); Sodium 139 mmol/L (136-145); Total Bilirubin 0.2 mg/dL (0.15-1.2); Total Protein 6.9 g/dL (6.6-8.7)
[2022-01-22 10:30] VITALS: BMI 33.0
[2022-01-22] MEDS: alteplase 1 mg/mL SDV 2 mL 2 MG INTRACATH (10:32)
[2022-01-22] MEDS: sodium chloride 0.9% 250 ML 75 ML IV (11:12)
[2022-01-22] MEDS: diphenhydrAMINE 50 mg/mL SDV 1mL 25 MG IVP (11:12)
[2022-01-22] MEDS: palonosetron 0.25 mg/5 mL SDV IVP (11:13)
[2022-01-22] MEDS: famotidine 20 mg/2 mL INJ IVP (11:14)
[2022-01-22] MEDS: pegfilgrastim 6 mg/0.6 mL Kit (onpro) SUBCUT (13:27)
[2022-01-22 13:30] VITALS: BP 128/79; PULSE 71; RESP 18; TEMP 36.2; O2SAT 95
[2022-01-29 09:21] LABS: Basophils % 0.1 %; Eosinophils % 0.1 %; Hematocrit 41.2 % (42.0-52.0); Hemoglobin 13.2 g/dL (11.7-16.6); Lymphocytes # 0.7 10^3/uL (0.8-4.8); Lymphocytes % 9.5 %; Mean Corpuscular Hemoglobin 30.8 pg (28.0-34.0); Mean Corpuscular Volume 96.3 fl (80-94); Mean Platelet Volume 11.2 fL (7.4-10.4); Monocytes # 1.6 10^3/uL (0.2-0.9); Monocytes % 22.6 %; Neutrophils # 3.65 10^3/uL (1.8-7.7); Neutrophils % 51.1 %; Nucleated Red Blood Cells # 0.4 /100WBC; Nucleated Red Blood Cells % 5.6 %; Platelet Count 185 10^3/cmm (130-400); Red Blood Count 4.28 10^6/uL (4.1-5.3); Red Cell Distribution Width 15.9 % (12.1-15.1); White Blood Count 7.2 10^3/uL (4.0-10.0)
[2022-01-29 09:42] LABS: Alanine Aminotransferase 24 U/L (0-41); Albumin Level 3.8 g/dL (3.5-5.2); Alkaline Phosphatase 195 U/L (40-130); Anion Gap 13.9 (5-19); Aspartate Amino Transferase 22 U/L (0-40); Blood Urea Nitrogen 18 mg/dL (8-23); Calcium 9.5 mg/dL (8.5-10.5); Carbon Dioxide 27 mmol/L (22-29); Chloride 100 mmol/L (98-107); Glomerular Filtration Rate 102.5 mL/min (90-130); Glucose 125 mg/dL (65-115); Osmolality Calculated 287 mOsm/kg (285-295); Potassium 3.9 mmol/L (3.5-5.1); Sodium 137 mmol/L (136-145); Total Bilirubin 0.3 mg/dL (0.15-1.2); Total Protein 6.8 g/dL (6.6-8.7)
[2022-01-29 09:52] LABS: Slide Review Slide Review Perform
== END 2022-02-06 23:59 | disposition home or self-care (01) ==
PROVIDERS: Internal Medicine Medical Oncology; PCP Internal Medicine Hematology & Oncology; Visit Provider Radiology Radiation Oncology
DX: C61 Malignant neoplasm of prostate (principal); D70.1 Agranulocytosis secondary to cancer chemotherapy; T45.1X5A Adverse effect of antineoplastic and immunosuppressive drugs, initial encounter; Z95.828 Presence of other vascular implants and grafts; Z79.818 Long term (current) use of other agents affecting estrogen receptors and estrogen levels; Z79.899 Other long term (current) drug therapy
CPT/HCPCS: 36415; 36591; 36593; 80053; 85025; 96372; 96375; 96377; 96413; 99214; J1100; J1200; J2469; J2506; J2997; J3490; J7050; J9171

== ENCOUNTER 2022-02-12 09:34 | Oncology outpatient (recurring) (ONCR) | payer OTHER, SELFPAY ==
[2022-02-12] MEDS: alteplase 1 mg/mL SDV 2 mL 2 MG INTRACATH (10:13)
[2022-02-12 10:17] VITALS: BMI 34.3
[2022-02-12 10:17] LABS: Hematocrit 37.3 % (42.0-52.0); Hemoglobin 12.4 g/dL (11.7-16.6); Lymphocytes # 0.4 10^3/uL (0.8-4.8); Lymphocytes % 5.5 %; Mean Corpuscular HGB Conc 33.2 g/dL (30.0-36.0); Mean Corpuscular Hemoglobin 31.4 pg (28.0-34.0); Mean Corpuscular Volume 94.4 fl (80-94); Mean Platelet Volume 10.4 fL (7.4-10.4); Monocytes # 0.7 10^3/uL (0.2-0.9); Monocytes % 8.3 %; Neutrophils # 6.79 10^3/uL (1.8-7.7); Neutrophils % 85.4 %; Nucleated Red Blood Cells % 0.4 %; Platelet Count 263 10^3/cmm (130-400); Red Blood Count 3.95 10^6/uL (4.1-5.3); Red Cell Distribution Width 16.7 % (12.1-15.1)
[2022-02-12 10:53] LABS: Alanine Aminotransferase 19 U/L (0-41); Albumin Level 4.2 g/dL (3.5-5.2); Alkaline Phosphatase 143 U/L (40-130); Anion Gap 15.2 (5-19); Aspartate Amino Transferase 17 U/L (0-40); Blood Urea Nitrogen 14 mg/dL (8-23); Calcium 9.7 mg/dL (8.5-10.5); Carbon Dioxide 26 mmol/L (22-29); Chloride 101 mmol/L (98-107); Globulin 2.6 g/dL (1.3-4.6); Glomerular Filtration Rate 117.4 mL/min (90-130); Glucose 129 mg/dL (65-115); Osmolality Calculated 288 mOsm/kg (285-295); Potassium 4.2 mmol/L (3.5-5.1); Sodium 138 mmol/L (136-145); Total Bilirubin 0.2 mg/dL (0.15-1.2); Total Protein 6.8 g/dL (6.6-8.7)
[2022-02-12 10:54] LABS: Prostate Specific Antigen < 0.014 ng/mL (0-4)
== END 2022-03-09 23:59 | disposition home or self-care (01) ==
PROVIDERS: Internal Medicine Hematology & Oncology; PCP Nurse Practitioner; Visit Provider Radiology Radiation Oncology
DX: C61 Malignant neoplasm of prostate (principal); Z95.828 Presence of other vascular implants and grafts; Z79.818 Long term (current) use of other agents affecting estrogen receptors and estrogen levels; Z79.899 Other long term (current) drug therapy; Z79.52 Long term (current) use of systemic steroids; F17.210 Nicotine dependence, cigarettes, uncomplicated; Z92.21 Personal history of antineoplastic chemotherapy; Z92.3 Personal history of irradiation
CPT/HCPCS: 36593; 80053; 84153; 85025; 96523; 99214; J2997

== ENCOUNTER 2022-03-27 09:57 | Oncology outpatient (recurring) (ONCR) | payer OTHER, SELFPAY ==
[2022-03-27] MEDS: alteplase 1 mg/mL SDV 2 mL 2 MG INTRACATH (10:22)
[2022-03-27 10:43] LABS: Basophils % 0.6 %; Eosinophils # 0.1 10^3/uL (0.0-0.8); Eosinophils % 2.2 %; Hemoglobin 13.1 g/dL (11.7-16.6); Lymphocytes # 0.6 10^3/uL (0.8-4.8); Lymphocytes % 18.9 %; Mean Corpuscular HGB Conc 32.8 g/dL (30.0-36.0); Mean Corpuscular Hemoglobin 30.4 pg (28.0-34.0); Mean Corpuscular Volume 92.8 fl (80-94); Mean Platelet Volume 11.1 fL (7.4-10.4); Monocytes # 0.5 10^3/uL (0.2-0.9); Monocytes % 16.7 %; Neutrophils # 1.95 10^3/uL (1.8-7.7); Neutrophils % 61.3 %; Nucleated Red Blood Cells % 0 %; Platelet Count 185 10^3/cmm (130-400); Red Blood Count 4.31 10^6/uL (4.1-5.3); Red Cell Distribution Width 15.5 % (12.1-15.1); White Blood Count 3.2 10^3/uL (4.0-10.0)
[2022-03-27 11:12] LABS: Alanine Aminotransferase 21 U/L (0-41); Albumin Level 4.2 g/dL (3.5-5.2); Alkaline Phosphatase 168 U/L (40-130); Blood Urea Nitrogen 12 mg/dL (8-23); Calcium 9.2 mg/dL (8.5-10.5); Carbon Dioxide 26 mmol/L (22-29); Chloride 103 mmol/L (98-107); Globulin 2.5 g/dL (1.3-4.6); Glomerular Filtration Rate 102.5 mL/min (90-130); Glucose 124 mg/dL (65-115); Osmolality Calculated 291 mOsm/kg (285-295); Sodium 140 mmol/L (136-145); Total Bilirubin 0.3 mg/dL (0.15-1.2); Total Protein 6.7 g/dL (6.6-8.7)
[2022-03-27 11:15] LABS: Prostate Specific Antigen < 0.014 ng/mL (0-4)
[2022-03-27 11:16] LABS: Anion Gap 15.1 (5-19); Aspartate Amino Transferase 27 U/L (0-40); Potassium 4.1 mmol/L (3.5-5.1)
[2022-03-27] MEDS: leuprolide 22.5 mg Kit IM (12:15)
[2022-03-27 12:24] VITALS: BP 127/59; PULSE 74; RESP 18; TEMP 36.4; O2SAT 98
[2022-03-27 12:30] VITALS: BP 124/78; PULSE 67; RESP 18; TEMP 36.6
== END 2022-04-09 23:59 | disposition home or self-care (01) ==
PROVIDERS: Internal Medicine Hematology & Oncology; PCP Nurse Practitioner; Visit Provider Radiology Radiation Oncology
DX: C61 Malignant neoplasm of prostate (principal); F17.210 Nicotine dependence, cigarettes, uncomplicated; Z79.52 Long term (current) use of systemic steroids; Z79.818 Long term (current) use of other agents affecting estrogen receptors and estrogen levels; Z79.899 Other long term (current) drug therapy; Z95.828 Presence of other vascular implants and grafts; Z92.21 Personal history of antineoplastic chemotherapy; Z92.3 Personal history of irradiation
CPT/HCPCS: 36415; 80053; 84153; 85025; 96402; 99214; J2997; J9217

== ENCOUNTER → 2022-05-08 14:43 | Outpatient (BNVA) | payer OTHER, SELFPAY | PROVIDERS: PCP Nurse Practitioner; Visit Provider Surgery | DX: Z95.828 Presence of other vascular implants and grafts (principal) | CPT/HCPCS: 36590; 99213 ==

== ENCOUNTER 2022-05-30 07:56 | Outpatient (CLI) | payer OTHER, SELFPAY ==
--- NOTE | 2022-05-30 08:10 | USCV_ITS ---
Khang Hudson Age: 66 Gender: M : 1955 Exam Date: 05/30/2022 08:38 Ordering Phys: Annika Lopez Technologist: [place] Exam Location: [facility] [place] Indication: AAA SCREENING HISTORY: Diameter (cm) AP x Transverse x Length Velocity (cm/s) Waveform Prox Aorta: 2.30 x 2.49 x 76.00 Triphasic Mid Aorta: 2.21 x 2.03 x 108.20 Triphasic Distal Aorta: 1.58 x 1.84 x 109.90 Triphasic Right Iliac Prox: 1.07 x 1.08 x 127.30 Triphasic Left Iliac Prox: 1.30 x 1.15 x 60.30 Triphasic Stent Prox Landing x x Aneurysmal Sac Max x x Lt Lat Sac Dim Rt Lat Sac Dim Stent Dist Landing x x Right Iliac Stent x x Left Iliac Stent x x Right Renal Art Left Renal Art FINDINGS: CONCLUSIONS No evidence of abdominal aortic or bilateral iliac aneurysm. Naveed River MD (Electronically Signed) Final Date: 30 May 2022 11:01 S
== END 2022-05-30 07:57 | disposition home or self-care (01) ==
LOC: RAD 07:57
PROVIDERS: PCP Nurse Practitioner; Visit Provider Nurse Practitioner
DX: Z13.6 Encounter for screening for cardiovascular disorders (principal)
CPT/HCPCS: 76706

== ENCOUNTER 2022-06-13 02:49 | Outpatient (CLI) | payer OTHER, SELFPAY | END 2022-06-13 02:50 | disposition home or self-care (01) | LOC: SLEEP 06-14 02:49 | PROVIDERS: PCP Nurse Practitioner; Visit Provider Nurse Practitioner | DX: R06.83 Snoring (principal); R53.83 Other fatigue; G47.33 Obstructive sleep apnea (adult) (pediatric) | CPT/HCPCS: 95810 ==

== ENCOUNTER 2022-06-15 10:24 | Inpatient (IN) | payer OTHER, SELFPAY ==
[2022-06-15] VITALS (12 sets, daily range): BP systolic 118–147; BP diastolic 75–90; PULSE 77–97; RESP 14–20; TEMP 36.8–38; O2SAT 91–96
--- NOTE | 2022-06-15 10:37 | W.ED.ABDPA2 ---
HPI - Abdominal Pain General: Chief Complaint: Abdominal Pain Stated Complaint: RLQ Abd Pain Time Seen by Provider: 06/15/22 10:26 Source: patient Mode of arrival: ambulatory History of Present Illness: 66-year-old male presents emergency room with chief complaint chief complaint of right-sided abdominal pain began . He initially told the nurse he isolated the right lower quadrant, on exam I find more tenderness in the upper at least the mid on the right. Began as epigastric pain and migrated to the right lower quadrant. He has not had any hematochezia or melena. Patient has a history of prostate cancer is in remission. No true watery diarrhea and no vomiting. No hematochezia melena hematemesis or coffee-ground gnosis. MD elicited complaint: abdominal pain Onset (ago): minute(s) Location: None Quality: cramping Radiation: none Exacerbating factors: nothing Relieving factors: nothing Associated Symptoms: Denies anorexia, belching, bloating, change in bowel habits, change in stool character, chills, coffee ground emesis, constipation, GI cramping, diarrhea, dyspepsia, dysuria, excessive flatus, fever(s), heartburn, hematochezia, hematuria, hematemesis, fecal incontinence, loose stools, melena, nausea, poor appetite, syncope and vomiting Review of Systems Const: Denies: fever(s), chills, fatigue or malaise ENMT: Denies: throat pain, ear or mastoid pain, nasal discharge or nasal congestion Card: Denies: syncope Resp: Denies: dyspnea, productive cough or non-productive cough GI: Reports: abdominal pain; Denies: nausea, vomiting, hematemesis, coffee ground emesis, heartburn, diarrhea, constipation, bloating, GI cramping, belching, excessive flatus, fecal incontinence, change in bowel habits, change in stool character, hematochezia or melena : Denies: dysuria or hematuria Skin/Breast: Denies: rash or pruritus [facility] ED PFSH: Medical History (Updated 06/15/22 @ 13:19 by Aurelio Drake M.D) Accelerated essential hypertension BPH w/o urinary obs/LUTS Cataracts, bilateral Elevated PSA Enlarged lymph nodes Epididymitis GERD (gastroesophageal reflux disease) Gross hematuria Hypercholesterolemia Hyperlipidemia Hypertension Inguinal hernia Osteoarthritis Prediabetes Rotator cuff tear, non-traumatic Surgical History H/O prostate biopsy History of rotator cuff surgery left shoulder Hx of hernia repair Hx of prostate biopsy Family History Mother , AT AGE 64 Diabetes Hypertension Hyperlipidemia Father , AT AGE 66 Cancer LUNG Hyperlipidemia Denies family history of CAD (coronary artery disease) Clotting disorder Dementia Psychiatric illness Chronic kidney disease (CKD) Suicide Anesthesia complication Bleeding disorder Lung disease Stroke Social History Smoking and tobacco status: current every day smoker (0.5 ppd, smoked x 18 years) cigarettes Packs smoked per day: 0.5 Alcohol intake: current Alcohol intake frequency: 0-2 Drinks per Day Marital status: Current occupational status: retired Physical Exam Const: GENERAL APPEARANCE: cooperative and comfortable ORIENTATION/CONSCIOUSNESS: Yes awake, Yes oriented to person, Yes oriented to place and Yes oriented to time HENMT: COMMON NORMALS: normocephalic, atraumatic and hearing grossly normal bilaterally HEAD & SCALP: normocephalic and atraumatic Resp: COMMON NORMALS: normal respiratory effort, No retractions, No use of accessory muscles and clear to auscultation bilaterally AUSCULTATION: clear to auscultation bilaterally Cardio: COMMON NORMALS: regular rate, regular rhythm and No murmurs present (Cardio) RATE: regular rate RHYTHM: regular rhythm GI: COMMON NORMALS: No hepatosplenomegaly present AUSCULTATION: Yes normoactive bowel sounds PALPATION: Yes Tenderness to palpation present (GI) Details: RLQ and RUQ (Positive Madrid sign), No Guarding due to palpation present (GI) and Yes No hepatosplenomegaly present : COMMON NORMALS: Yes no CVA tenderness BLADDER/KIDNEY EXAM: Yes no CVA tenderness Back/Pelvis: COMMON NORMALS: no CVA tenderness Extremity: COMMON NORMALS: normal to inspection, capillary refill normal, no clubbing, cyanosis or edema, no calf tenderness and no pedal edema Neuro: SENSORIUM/ORIENTATION: Yes oriented to person, Yes oriented to place and Yes oriented to time Skin: COMMON NORMALS: no rashes or lesions noted GENERAL SKIN EXAM: no rashes or lesions noted Course Vital Signs: Vital signs: Vital Signs Temperature 99.7 F H 06/15/22 10:31 Pulse Rate 97 06/15/22 10:31 Respiratory Rate 18 06/15/22 11:35 Blood Pressure 147/90 06/15/22 10:31 Pulse Oximetry 95 06/15/22 11:35 Oxygen Delivery Me thod 06/15/22 11:35 MDM - Abdominal Pain Medical Decision Making Elevated alk phos, mild leukocytosis positive Madrid sign. CT shows acute cholecystitis T. bili is not elevated. Discussed with on-call surgery they will see the patient in the emergency room. Medical Records I reviewed the patient's medical records. Lab Data I reviewed the patient's lab results. 06/15/22 10:06 06/15/22 10:06 Labs/Radiology: Radiology Impressions Abdomen/Pelvis CT 06/15/22 10:49 IMPRESSION: 1. Acute cholecystitis. 2. Hepatic steatosis. 3. Incidental findings above. Laboratory Results WBC 11.0 10^3/uL (4.0-10.0) H 06/15/22 10:06 RBC 4.77 10^6/uL (4.1-5.3) 06/15/22 10:06 Hgb 14.1 g/dL (11.7-16.6) 06/15/22 10:06 Hct 42.6 % (42.0-52.0) 06/15/22 10:06 MCV 89.3 fl (80-94) 06/15/22 10:06 MCH 29.6 pg (28.0-34.0) 06/15/22 10:06 MCHC 33.1 g/dL (30.0-36.0) 06/15/22 10:06 RDW 15.3 % (12.1-15.1) H 06/15/22 10:06 Plt Count 143 10^3/cmm (130-400) 06/15/22 10:06 MPV 11.8 fL (7.4-10.4) H 06/15/22 10:06 Neut % (Auto) 86.8 % 06/15/22 10:06 Lymph % (Auto) 5.7 % 06/15/22 10:06 Hand % (Auto) 6.7 % 06/15/22 10:06 Eos % (Auto) 0.0 % 06/15/22 10:06 Baso % (Auto) 0.2 % 06/15/22 10:06 Neut # (Auto) 9.55 10^3/uL (1.8-7.7) H 06/15/22 10:06 Lymph # (Auto) 0.6 10^3/uL (0.8-4.8) L 06/15/22 10:06 Hand # (Auto) 0.7 10^3/uL (0.2-0.9) 06/15/22 10:06 Eos # (Auto) 0.0 10^3/uL (0.0-0.8) 06/15/22 10:06 Baso # (Auto) 0.0 10^3/uL (0.0-0.1) 06/15/22 10:06 Nucleated RBC % (auto) 0 % 06/15/22 10:06 Nucleated RBCs # 0.0 /100WBC 06/15/22 10:06 Sodium 139 mmol/L (136-145) 06/15/22 10:06 Potassium 3.8 mmol/L (3.5-5.1) 06/15/22 10:06 Chloride 103 mmol/L (98-107) 06/15/22 10:06 Carbon Dioxide 22 mmol/L (22-29) 06/15/22 10:06 Anion Gap 17.8 (5-19) 06/15/22 10:06 BUN 14 mg/dL (8-23) 06/15/22 10:06 Creatinine 0.9 mg/dL (0.7-1.2) 06/15/22 10:06 GFR Calculation 102.5 mL/min (90-130) 06/15/22 10:06 Glucose 112 mg/dL (65-115) 06/15/22 10:06 Calculated Osmolality 289 mOsm/kg (285-295) 06/15/22 10:06 Calcium 9.3 mg/dL (8.5-10.5) 06/15/22 10:06 Total Bilirubin 0.6 mg/dL (0.15-1.2) 06/15/22 10:06 AST 18 U/L (0-40) 06/15/22 10:06 ALT 22 U/L (0-41) 06/15/22 10:06 Alkaline Phosphatase 202 U/L (40-130) H 06/15/22 10:06 Total Protein 7.1 g/dL (6.6-8.7) 06/15/22 10:06 Albumin 4.2 g/dL (3.5-5.2) 06/15/22 10:06 Globulin 2.9 g/dL (1.3-4.6) 06/15/22 10:06 Discharge Plan Discharge Patient Disposition: Admitted As Inpatient Clinical Impression: Acute cholecystitis Condition: Stable Coding Level of Care Code ED Picking Supervisor for Gene Garrison
--- NOTE | 2022-06-15 10:49 | CTR_ITS ---
PROCEDURE INFORMATION: Exam: CT Abdomen And Pelvis Without Contrast Exam date and time: 06/15/2022 10:53 AM Age: 66 years old Clinical indication: Abdominal pain; Localized; Right upper quadrant (ruq) TECHNIQUE: Imaging protocol: Computed tomography of the abdomen and pelvis without contrast. Radiation optimization: All CT scans at this facility use at least one of these dose optimization techniques: automated exposure control; mA and/or kV adjustment per patient size (includes targeted exams where dose is matched to clinical indication); or iterative reconstruction. REPORTING DATA: Count of CT and Cardiac NM exams in prior 12 months: This patient has received [address] and 0 known cardiac nuclear medicine studies in the 12 months prior to the current study. COMPARISON: CT abdomen pelvis wo/w [id number] 06/08/2021 9:13 AM RADIATION DOSE METRICS: Total DLP (mGy-cm): 1113.96 FINDINGS: Lungs: Lung bases are clear. Liver: There is diffuse low-attenuation of the liver relative to the spleen consistent with fatty infiltration. There is no focal liver abnormality. Gallbladder and bile ducts: The gallbladder is dilated. The wall is thickened. There is pericholecystic edema. There are small calcified stones in the neck. There is no intrahepatic or extrahepatic bile duct dilation. Pancreas: The pancreas is unremarkable. Spleen: The spleen is unremarkable. Adrenal glands: The adrenal glands are unremarkable. Kidneys and ureters: The kidneys are unremarkable. No hydronephrosis or stones. No ureteral dilation. Stomach and bowel: The stomach is decompressed, preventing meaningful evaluation of wall thickness. There is edema along the descending duodenum, likely secondary to cholecystitis. The small bowel is nondilated. There is mild descending colonic diverticulosis without evidence of diverticulitis. Appendix: The appendix is normal. Intraperitoneal space: There is no free air or significant intraperitoneal free fluid. Vasculature: There is severe aortic atherosclerotic disease. Lymph nodes: There is no lymphadenopathy in the retroperitoneum, mesentery, pelvis or inguinal regions. Urinary bladder: The urinary bladder is unremarkable. Reproductive: The prostate and seminal vesicles are unremarkable. Bones/joints: There is severe multilevel degenerative disease in the lumbar spine. There is bulky heterotopic ossification adjacent to a large exostosis arising from the right anterior inferior iliac spine. The hips are normal. The proximal femora are intact. No acute fracture. Soft tissues: The abdominal wall is intact. CT/CT abdomen pelvis wo con [id number] IMPRESSION: 1. Acute cholecystitis. 2. Hepatic steatosis. 3. Incidental findings above.
[2022-06-15 11:13] LABS: Basophils % 0.2 %; Hematocrit 42.6 % (42.0-52.0); Hemoglobin 14.1 g/dL (11.7-16.6); Lymphocytes # 0.6 10^3/uL (0.8-4.8); Lymphocytes % 5.7 %; Mean Corpuscular HGB Conc 33.1 g/dL (30.0-36.0); Mean Corpuscular Hemoglobin 29.6 pg (28.0-34.0); Mean Corpuscular Volume 89.3 fl (80-94); Mean Platelet Volume 11.8 fL (7.4-10.4); Monocytes # 0.7 10^3/uL (0.2-0.9); Monocytes % 6.7 %; Neutrophils # 9.55 10^3/uL (1.8-7.7); Neutrophils % 86.8 %; Nucleated Red Blood Cells % 0 %; Platelet Count 143 10^3/cmm (130-400); Red Blood Count 4.77 10^6/uL (4.1-5.3); Red Cell Distribution Width 15.3 % (12.1-15.1)
[2022-06-15 11:24] LABS: Alanine Aminotransferase 22 U/L (0-41); Albumin Level 4.2 g/dL (3.5-5.2); Alkaline Phosphatase 202 U/L (40-130); Anion Gap 17.8 (5-19); Aspartate Amino Transferase 18 U/L (0-40); Blood Urea Nitrogen 14 mg/dL (8-23); Calcium 9.3 mg/dL (8.5-10.5); Carbon Dioxide 22 mmol/L (22-29); Chloride 103 mmol/L (98-107); Globulin 2.9 g/dL (1.3-4.6); Glomerular Filtration Rate 102.5 mL/min (90-130); Glucose 112 mg/dL (65-115); Osmolality Calculated 289 mOsm/kg (285-295); Potassium 3.8 mmol/L (3.5-5.1); Sodium 139 mmol/L (136-145); Total Bilirubin 0.6 mg/dL (0.15-1.2); Total Protein 7.1 g/dL (6.6-8.7)
--- NOTE | 2022-06-15 12:15 | ECG_ITS ---
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 Measurements Intervals [place] Rate: 92 P: 91 W[place]: 126 QRS: -28 QRSD: 94 T: 0 QT: 300 QTc: 372 Interpretive Statements SINUS RHYTHM WITH OCCASIONAL SUPRAVENTRICULAR PREMATURE COMPLEXES POSSIBLE LEFT ATRIAL ENLARGEMENT [-0.1mV P-WAVE IN V1/V2] INCOMPLETE RIGHT BUNDLE BRANCH BLOCK [90+ ms QRS DURATION, TERMINAL R IN V1/V2, 40+ ms S IN I/aVL/V4/V5/V6] SEPTAL MYOCARDIAL INFARCTION , PROBABLY OLD [40+ ms Q WAVE IN V1/V2] Compared to ECG 08/07/2017 06:37:49 Myocardial infarct finding now present Left anterior fascicular block no longer present T-wave abnormality no longer present Possible ischemia no longer present Electronically Signed On 06-15-2022 21:44:56 CDT by Frances Beard M.D. [id number]
[2022-06-15] MEDS: piperacillin-tazobactam 3.375 GM in sodium chloride 0.9% (plus) 50 ML IV ×2 (12:24→19:41)
--- NOTE | 2022-06-15 12:27 | PM.HP ---
Providers/Chief Complaint Admitting Physician: axel Primary Care Provider: CARINA Martinez Chief Complaint: RLQ Abd Pain History of Present Illness Khang Hudson is a 66 year old male presents with a greater than 24-hour history of right upper quadrant pain, nausea and vomiting. Patient is never had pain like this before. The pain came on all of a sudden. The pain was not associated with eating. The patient does not notice any fatty food intolerance. The patient does not had a change in his bowel habits. The patient denies diarrhea or constipation. The patient does have history of smoking. The patient does carry a diagnosis of COPD. The patient is on inhalers. Review of Systems General: Reports: 10 or more systems reviewed and unremarkable except in HPI and below Medications/Allergies Home Medications Medication Instructions Recorded Confirmed Last Taken Type aspirin 81 mg tablet,delayed 81 mg PO DAILY 04/26/19 05/08/22 05/19/19 06:00 History release (Adult Low Dose Aspirin) budesonide-formoterol HFA 80 2 puff inhalation BID 05/19/19 05/08/22 11/28/21 History mcg-4.5 mcg/actuation aerosol inhaler (Symbicort) omeprazole 20 mg capsule,delayed 20 mg PO DAILY 05/19/19 05/08/22 11/29/21 08:00 History release amlodipine 5 mg tablet 2.5 mg PO DAILY 05/04/21 05/08/22 11/29/21 08:00 History hydrochlorothiazide 25 mg tablet 25 mg PO DAILY 05/04/21 05/08/22 11/28/21 History rosuvastatin 10 mg tablet 5 mg PO DAILY 05/04/21 05/08/22 11/28/21 History meloxicam 15 mg tablet 15 mg PO DAILY #90 tabs 09/26/21 05/08/22 11/28/21 Rx empagliflozin 25 mg tablet 25 mg PO DAILY 11/28/21 05/08/22 11/28/21 History cholecalciferol (vitamin D3) 10 See Rx Instructions PO DAILY 12/10/21 05/08/22 Unknown History mcg (400 unit) capsule lorazepam 0.5 mg tablet (Ativan) See Rx Instructions PO .Q6-8Hr PRN 12/10/21 05/08/22 Unknown Rx anxiety #30 tabs prochlorperazine maleate 10 mg 10 mg PO Q4H PRN Mild Nausea #30 12/10/21 05/08/22 Unknown Rx tablet (Compazine) tabs dexamethasone 4 mg tablet 8 mg PO BID #30 tabs 02/05/22 05/08/22 Unknown Rx celecoxib 50 mg capsule (Celebrex) 50 mg PO DAILY PRN 02/12/22 05/08/22 Unknown History Allergies Allergy/AdvReac Type Severity Reaction Status Date / Time No Known Allergies Allergy Verified 05/08/22 14:53 PFSH Acute PFSH: Medical History Accelerated essential hypertension BPH w/o urinary obs/LUTS Cataracts, bilateral Elevated PSA Enlarged lymph nodes Epididymitis GERD (gastroesophageal reflux disease) Gross hematuria Hypercholesterolemia Hyperlipidemia Hypertension Inguinal hernia Osteoarthritis Prediabetes Rotator cuff tear, non-traumatic Surgical History H/O prostate biopsy History of rotator cuff surgery left shoulder Hx of hernia repair Hx of prostate biopsy Family History Mother , AT AGE 64 Diabetes Hypertension Hyperlipidemia Father , AT AGE 66 Cancer LUNG Hyperlipidemia Denies family history of CAD (coronary artery disease) Clotting disorder Dementia Psychiatric illness Chronic kidney disease (CKD) Suicide Anesthesia complication Bleeding disorder Lung disease Stroke Social History Smoking and tobacco status: current every day smoker (0.5 ppd, smoked x 18 years) cigarettes Packs smoked per day: 0.5 Alcohol intake: current Alcohol intake frequency: 0-2 Drinks per Day Marital status: Current occupational status: retired Vitals/I&O/Wt Last Vital Signs Temp 99.7 F H 06/15/22 10:31 Pulse 97 06/15/22 10:31 Resp 18 06/15/22 11:35 BP 147/90 06/15/22 10:31 Pulse Ox 95 06/15/22 11:35 O2 Del Method 06/15/22 11:35 Weight last 48 hrs Weight 270 lb Physical Exam Narrative: Generally: Mild distress HEENT is normocephalic atraumatic, pupils equal round reactive to light Neck: Free range of motion and nontender. Lungs: Mostly clear with expiratory wheezes mostly in the right base Cardiac: Regular rate and rhythm. No S3 or S4. No murmurs that I can appreciate. No rubs clicks or JVD noted Abdomen: Somewhat obese. Right upper quadrant tenderness with rebound. There are no masses that I can appreciate. Extremities: There is no obvious deformities or point tenderness suggestive of fracture. The patient has 2+ dorsalis pedis and posterior tibialis pulses bilaterally. Neurologic: Patient is awake, alert, and oriented x3. His [place] Coma Scale is 15. The patient moves all 4 extremities without difficulty. The patient sensations intact to light touch throughout. Data 06/15/22 10:06 06/15/22 10:06 Attestation for Other Data: I personally reviewed and interpreted the following: (I reviewed all the patient's labs as well as the CT scan of the abdomen and pelvis.) A&P Assessment and plan (1) Acute cholecystitis: We will admit the patient to the surgery service. We will start the patient on Zosyn. We will get an EKG. We will consult cardiology for the patient's bundle branch block. We will start the patient back on his inhalers. Our plan is to take the patient to the operating room in the next 24 to 48 hours for laparoscopic cholecystectomy. Attestations Medical Necessity Statement*: Acute cholecystitis Coding Level of Care Code 23091 Diagnoses Acute cholecystitis K81.0
--- NOTE | 2022-06-15 12:56 | PM.CONSULT ---
Providers/Reason For Consult Consulting Physician/Specialty*: Aurelio Drake MD/ Cardiology Reason for Consult*: Pre op clearance Requesting Physician: Dr Segura Primary Care Provider: CARINA Martinez History of Present Illness History of Present Illness Khang Hudson is a 66 year old male with past medical history of hypertension, prediabetes, prostate cancer with no coronary artery disease history has presented with abdominal pain. He is found to have acute cholecystitis. Cardiology was consulted for preop clearance prior to cholecystectomy. Patient denies chest pain. He has COPD and does get short of breath on significant exertion. EKG shows sinus rhythm with incomplete right bundle branch block. No ischemic changes are seen. Review of Systems Const: Denies: fever(s), chills, fatigue or malaise ENMT: Denies: throat pain, ear or mastoid pain, nasal discharge or nasal congestion Card: Denies: syncope Resp: Denies: dyspnea, productive cough or non-productive cough GI: Reports: abdominal pain; Denies: nausea, vomiting, hematemesis, coffee ground emesis, heartburn, diarrhea, constipation, bloating, GI cramping, belching, excessive flatus, fecal incontinence, change in bowel habits, change in stool character, hematochezia or melena : Denies: dysuria or hematuria Skin/Breast: Denies: rash or pruritus Medications/Allergies Home Medications Medication Instructions Recorded Confirmed Last Taken Type aspirin 81 mg tablet,delayed 81 mg PO DAILY 04/26/19 05/08/22 05/19/19 06:00 History release (Adult Low Dose Aspirin) budesonide-formoterol HFA 80 2 puff inhalation BID 05/19/19 05/08/22 11/28/21 History mcg-4.5 mcg/actuation aerosol inhaler (Symbicort) omeprazole 20 mg capsule,delayed 20 mg PO DAILY 05/19/19 05/08/22 11/29/21 08:00 History release amlodipine 5 mg tablet 2.5 mg PO DAILY 05/04/21 05/08/22 11/29/21 08:00 History hydrochlorothiazide 25 mg tablet 25 mg PO DAILY 05/04/21 05/08/22 11/28/21 History rosuvastatin 10 mg tablet 5 mg PO DAILY 02/25/22 03/01/23 09/21/22 History meloxicam 15 mg tablet 15 mg PO DAILY #90 tabs 09/26/21 05/08/22 11/28/21 Rx cholecalciferol (vitamin D3) 10 See Rx Instructions PO DAILY 12/10/21 05/08/22 Unknown History mcg (400 unit) capsule lorazepam 0.5 mg tablet (Ativan) See Rx Instructions PO .Q6-8Hr PRN 12/10/21 05/08/22 Unknown Rx anxiety #30 tabs celecoxib 50 mg capsule (Celebrex) 50 mg PO DAILY PRN 02/12/22 05/08/22 Unknown History misoprostol 100 mcg tablet 100 mcg PO BID 06/15/22 06/15/22 06/14/22 History Allergies Allergy/AdvReac Type Severity Reaction Status Date / Time No Known Allergies Allergy Verified 05/08/22 14:53 PFSH Acute PFSH: Medical History (Updated 06/15/22 @ 13:19 by Aurelio Drake M.D) Accelerated essential hypertension BPH w/o urinary obs/LUTS Cataracts, bilateral Elevated PSA Enlarged lymph nodes Epididymitis GERD (gastroesophageal reflux disease) Gross hematuria Hypercholesterolemia Hyperlipidemia Hypertension Inguinal hernia Osteoarthritis Prediabetes Rotator cuff tear, non-traumatic Surgical History H/O prostate biopsy History of rotator cuff surgery left shoulder Hx of hernia repair Hx of prostate biopsy Family History Mother , AT AGE 64 Diabetes Hypertension Hyperlipidemia Father , AT AGE 66 Cancer LUNG Hyperlipidemia Denies family history of CAD (coronary artery disease) Clotting disorder Dementia Psychiatric illness Chronic kidney disease (CKD) Suicide Anesthesia complication Bleeding disorder Lung disease Stroke Social History Smoking and tobacco status: current every day smoker (0.5 ppd, smoked x 18 years) cigarettes Packs smoked per day: 0.5 Alcohol intake: current Alcohol intake frequency: 0-2 Drinks per Day Marital status: Current occupational status: retired Vitals/I&O/Wt Last Vital Signs Temp 99.7 F H 06/15/22 10:31 Pulse 97 06/15/22 10:31 Resp 18 06/15/22 11:35 BP 147/90 06/15/22 10:31 Pulse Ox 95 06/15/22 11:35 O2 Del Method 06/15/22 11:35 Weight last 48 hrs Weight 270 lb Physical Exam Narrative: GENERAL: Patient is alert, awake and oriented x3. [] NECK: No jugular vein distension. [] HEENT: No cyanosis. No icterus. No pallor. [] HEART: Regular S1 and S2. No murmur, rub or gallop. [] LUNGS: Clear to auscultate bilaterally. [] ABDOMEN: Tenderness on palpation CENTRAL NERVOUS SYSTEM: Grossly nonfocal. [] EXTREMITIES: Lower extremities with no edema Data 06/15/22 10:06 06/15/22 10:06 A&P Assessment and plan (1) Pre-operative clearance: (2) Acute cholecystitis: (3) Prostate cancer: (4) Prediabetes: (5) Hypertension: Plan Patient has no CAD history. Has acute cholecystitis that will require urgent surgery. No chest pain. EKG does not show any ischemic changes. Given urgent surgery, can proceed with it. Order echocardiogram Thank you for involving us with care of this patient. Please call with questions. Consult Attestations Medical Necessity Statement: Care expected to cross 2 midnights. Coding Level of Care Code Acute Code for Chg Fwd Diagnoses Pre-operative clearance Z01.818 Acute cholecystitis K81.0 Prostate cancer C61 Prediabetes R73.03 Hypertension I10
[2022-06-15] MEDS: acetaminophen 325 mg Tablet 650 MG PO ×3 (13:06→23:27)
[2022-06-15] MEDS: enoxaparin 40 mg/0.4 mL Syringe SUBCUT (13:06)
[2022-06-15] MEDS: D5-NS 0.45% + KCL 20 mEq 20 MEQ/1,000 ML BAG 75 MEQ IV ×2 (13:06→18:14)
[2022-06-15] MEDS: ipratropium-albuterol 3 mL Neb INHALATION ×2 (13:54→20:41)
[2022-06-15 16:23] LABS: Urine Appearance Hazy (CLEAR); Urine Color Dark Yellow (Yellow)
[2022-06-15 16:24] LABS: Add Urine Microscopic? YES; Bilirubin Urine Neg (Negative); Blood Urine 2+ (Negative); Glucose Urine UA Norm (Normal); Ketones Urine Negative (Negative); Leukocyte Esterase Urine Trace (Negative); Nitrate Urine Negative (Negative); Protein Urine 1+ (Negative); Urobilinogen Urine 1 mg/dL (Negative); pH Urine 6 (5-7)
[2022-06-15 16:28] LABS: Bacteria Urine 2+ /hpf; Mucus Urine 2+ /hpf; Squamous Epithelial Cell Urine RARE /hpf (0-5); Transitional Epi Cells Urine RARE /hpf
[2022-06-15 16:29] LABS: Add Urine Culture? Yes; WBC Urine >100 /hpf (0-5)
[2022-06-15] MEDS: oxyCODONE 5 mg IR Tab/Cap PO ×2 (16:29→23:28)
[2022-06-15] MEDS: sodium chloride 0.9% 1,000 ML 125 ML IV (16:31)
[2022-06-15] MEDS: morphine 4 mg/mL SDV 1 mL 2 MG IVP (18:12)
[2022-06-15] MEDS: pantoprazole DR 40 mg Tablet PO (18:13)
[2022-06-15] MEDS: famotidine 20 mg Tablet PO (18:13)
[2022-06-15] MEDS: budesonide 0.5 mg/2 mL Neb INHALATION (20:41)
[2022-06-16] VITALS (23 sets, daily range): BP systolic 103–138; BP diastolic 58–89; PULSE 73–93; RESP 16–30; TEMP 36.3–38.8; O2SAT 88–99
[2022-06-16 04:07] LABS: Hematocrit 42.4 % (42.0-52.0); Hemoglobin 13.5 g/dL (11.7-16.6); Mean Corpuscular HGB Conc 31.8 g/dL (30.0-36.0); Mean Corpuscular Volume 91.2 fl (80-94); Mean Platelet Volume 11.6 fL (7.4-10.4); Platelet Count 125 10^3/cmm (130-400); Red Blood Count 4.65 10^6/uL (4.1-5.3); Red Cell Distribution Width 15.5 % (12.1-15.1)
[2022-06-16] MEDS: piperacillin-tazobactam 3.375 GM in sodium chloride 0.9% (plus) 50 ML IV ×3 (04:11→21:04)
[2022-06-16] MEDS: morphine 4 mg/mL SDV 1 mL 2 MG IVP ×2 (04:24→08:15)
[2022-06-16 04:25] LABS: Alanine Aminotransferase 17 U/L (0-41); Albumin Level 3.5 g/dL (3.5-5.2); Alkaline Phosphatase 180 U/L (40-130); Aspartate Amino Transferase 20 U/L (0-40); Blood Urea Nitrogen 13 mg/dL (8-23); Calcium 9.2 mg/dL (8.5-10.5); Carbon Dioxide 25 mmol/L (22-29); Chloride 100 mmol/L (98-107); Globulin 3.1 g/dL (1.3-4.6); Glomerular Filtration Rate 81.3 mL/min (90-130); Glucose 100 mg/dL (65-115); Osmolality Calculated 276 mOsm/kg (285-295); Sodium 133 mmol/L (136-145); Total Bilirubin 0.6 mg/dL (0.15-1.2); Total Protein 6.6 g/dL (6.6-8.7)
[2022-06-16 04:33] LABS: Anion Gap 12.1 (5-19); Potassium 4.1 mmol/L (3.5-5.1)
[2022-06-16 04:52] LABS: Platelet Estimate Decreased (Normal)
[2022-06-16 04:56] LABS: Band Neutrophils Absolute 0.2 10^3/cmm (0.0-1.2); Lymphocytes 4 %; Total Cells Counted 100 (0-100)
[2022-06-16 04:57] LABS: Absolute Neutrophil 8.9 10^3/cmm (1.4-6.5); Absolute Segmented Neutrophil 8.7 10/cmm (1.6-7.1); Eosinophils 0 %; Lymphocytes Absolute 0.4 10^3/cmm (1.2-3.4); Monocytes Absolute 0.6 10^3/cmm (0.1-0.6); Segmented Neutrophils 87 %; Toxic Granulation 1+; Toxic Vacuolation TRACE
[2022-06-16 04:58] LABS: Spherocytes 1+
[2022-06-16 04:59] LABS: Microcytosis Trace
[2022-06-16] MEDS: acetaminophen 325 mg Tablet 650 MG PO ×3 (05:14→23:41)
--- NOTE | 2022-06-16 06:00 | USCV_ITS ---
Khang Hudson Age: 66 Gender: M : 1955 Exam Date: 06/16/2022 12:09 Ordering Phys: Aurelio Drake M.D ([email or web address]) Technologist: JUAN Exam Location: [facility] [place] Indication: dyspnea on exertion BP: / HR: 90 Rhythm: Sinus Technical Quality: Adequate MEASUREMENTS (Male / Female) Normal Values 2D ECHO LV Diastolic Diameter PLAX 5.7 cm 4.2 - 5.9 / 3.9 - 5.3 cm LV Systolic Diameter PLAX 4.3 cm IVS Diastolic Thickness 1.0 cm 0.6 - 1.0 / 0.6 - 0.9 cm IVS Systolic Thickness 1.5 cm LVPW Diastolic Thickness 0.8 cm 0.6 - 1.0 / 0.6 - 0.9 cm LVPW Systolic Thickness 1.5 cm LVOT Diameter 2.4 cm LV Ejection Fraction 2D Teich 48.6 % LV Ejection Fraction MOD 2C 63.6 % LV Ejection Fraction 2C AL 63.9 % LA Diameter 4.3 cm M-MODE Aortic Annulus Diameter 3.9 cm LA Ao Ratio MM 1.3 MV E Point Septal Separation 0.5 cm DOPPLER AV Peak Velocity 183.0 cm/s LVOT Peak Velocity 110.0 cm/s AV Area Cont Eq vti 3.5 cm squared AV Area Cont Eq pk 2.7 cm squared MV Area PHT 2.4 cm squared Mitral E to A Ratio 0.7 MV E' Velocity 50.0 cm/s Mitral E to MV E' Ratio 9.8 Mitral E to LV E' Lateral Ratio 8.4 Mitral E to LV E' Septal Ratio 12.1 TR Peak Velocity 215.0 cm/s TR Peak Gradient 18.5 mmHg TV Peak E Velocity 70.0 cm/s Right Atrial Pressure 3.0 mmHg Pulmonary Artery Systolic Pressu 21.5 mmHg PV Peak Velocity 105.0 cm/s FINDINGS Left Ventricle Normal left ventricular size and systolic function, EF 66 %. No regional wall motion abnormalities. Grade I/IV diastolic dysfunction (abnormal relaxation filling pattern), normal to mildly elevated filling pressures. Right Ventricle Normal right ventricular size and systolic function. Right Atrium Normal right atrial size. Left Atrium Normal left atrial size. Mitral Valve No gross abnormalities noted Aortic Valve Thickened aortic valve. Tricuspid Valve Mild tricuspid valve regurgitation. Pulmonic Valve No gross abnormalities noted Pericardium No pericardial effusion. Aorta Normal aortic annulus size. IVC Inferior vena cava not visualized. CONCLUSIONS Normal left ventricular size and systolic function, EF 66 %. No regional wall motion abnormalities. Grade I/IV diastolic dysfunction (abnormal relaxation filling pattern), normal to mildly elevated filling pressures. Thickened aortic valve. Mild tricuspid valve regurgitation. There are no intracardiac masses. There is no pericardial effusion. No similar previous studies are available for comparison Dr Frances Beard MD FAC (Electronically Signed) Final Date: 16 June 2022 17:53 S
[2022-06-16] MEDS: D5-NS 0.45% + KCL 20 mEq 20 MEQ/1,000 ML BAG 75 MEQ IV ×2 (06:03→21:04)
[2022-06-16] MEDS: pantoprazole DR 40 mg Tablet PO ×2 (08:15→17:26)
[2022-06-16] MEDS: famotidine 20 mg Tablet PO ×2 (08:15→17:26)
[2022-06-16] MEDS: amlodipine 5 mg Tablet 2.5 MG PO (08:15)
[2022-06-16] MEDS: ipratropium-albuterol 3 mL Neb INHALATION ×2 (08:34→19:40)
[2022-06-16] MEDS: budesonide 0.5 mg/2 mL Neb INHALATION ×2 (08:34→19:40)
[2022-06-16] MEDS: oxyCODONE 5 mg IR Tab/Cap PO (11:28)
--- NOTE | 2022-06-16 11:58 | PM.PN ---
Subjective Subjective: The patient's been hemodynamically stable overnight. Unfortunately, the patient's abdominal pain has not changed. He continues to complain of abdominal pain. He has some nausea without vomiting. The patient states that he is ready for surgery. Vitals/I&O/Wt Last Vital Signs Temp 99.6 F 06/16/22 11:24 Pulse 79 06/16/22 11:24 Resp 22 H 06/16/22 11:24 BP 134/75 06/16/22 11:24 Pulse Ox 93 06/16/22 11:24 O2 Del Method 06/16/22 11:24 O2 Flow Rate 2 06/16/22 08:30 06/15/22 06/16/22 06/16/22 22:59 06:59 14:59 Intake Total 385 / 435 936.25 / 1371.25 50 / 50 Balance 385 / 435 936.25 / 1371.25 50 / 50 Weight last 48 hrs Weight 270 lb Physical Exam Narrative: Generally: Moderate abdominal distress Lungs: Clear to auscultation and percussion. Heart: Is regular rate and rhythm Abdomen: Somewhat obese, right upper quadrant tenderness with rebound. Positive bowel sounds Data 06/16/22 03:09 06/16/22 03:09 Attestation for Other Data: I personally reviewed and interpreted the following: (I reviewed all the patient's labs as well as medications.) A&P Assessment and plan (1) Acute cholecystitis: We will take the patient to the operating room for laparoscopic cholecystectomy, possible open cholecystectomy. The risk and benefits of this procedure been explained to the patient. The patient seems to understand these risk and benefits and like to proceed. The patient's been cleared by cardiology. The patient's lungs are much better than they were yesterday. The patient is on oxygen but he does not have any wheezes or rales. We will take the patient for surgical intervention. Attestations Medical Necessity Statement*: Acute cholecystitis Coding Level of Care Code 59281 Diagnoses Acute cholecystitis K81.0
--- NOTE | 2022-06-16 13:22 | ANES.PREANE2 ---
Pre-Anesthetic Assessment Height/Weight: Height 1.88 m Weight 122.47 kg Temp Pulse Resp BP Pulse Ox O2 Del Method O2 Flow Rate 101.8 F H 93 20 H 138/89 93 2 06/16/22 12:55 06/16/22 12:55 06/16/22 12:55 06/16/22 12:55 06/16/22 12:55 06/16/22 12:55 06/16/22 08:30 Preop Diagnosis: acute cholecystitis Operation Date: 06/16/22 12:30 Proposed Procedures p Laparoscopic Cholecystectomy(Not Applicable) - Jama Almodovar MD Was Beta Yvonne taken within 24 hours: N/A Last intake: Intake Last Liquid Date 06/16/22 Last Liquid Time 09:30 Last Solid Date 06/16/22 Last Solid Time 00:01 Social Tobacco and No alcohol Exam alert, oriented x 3, clear to auscultation bilaterally and regular rate & rhythm (3/6 Systolic Ejection Murmur ) Airway Submandibular: within normal limits Cervical ROM: Other (limited) Mallampati: Class II Dentition: other (Edentulous ) Pulmonary Chronic Obstructive Pulmonary Disease CV/HEM Hypertension Prostatic CA Hepatic None reported Metabolic Diabetes Mellitus, Hyperlipidemia and Morbid Obesity [facility] Osteoarthritis/DJD Anesthetic Plan ASA status: 3E Anesthesia: General Medications/Allergies Home Medications Medication Instructions Recorded Confirmed Last Taken Type aspirin 81 mg tablet,delayed 81 mg PO DAILY 04/26/19 06/15/22 06/14/22 History release (Adult Low Dose Aspirin) budesonide-formoterol HFA 80 2 puff inhalation BID 05/19/19 06/15/22 06/14/22 History mcg-4.5 mcg/actuation aerosol inhaler (Symbicort) omeprazole 20 mg capsule,delayed 20 mg PO DAILY 05/19/19 06/15/22 06/14/22 History release amlodipine 5 mg tablet 2.5 mg PO DAILY 05/04/21 06/15/22 06/14/22 History hydrochlorothiazide 25 mg tablet 25 mg PO DAILY 05/04/21 06/15/22 06/14/22 History rosuvastatin 10 mg tablet 5 mg PO DAILY 05/04/21 06/15/22 06/14/22 History meloxicam 15 mg tablet 15 mg PO DAILY #90 tabs 09/26/21 06/15/22 06/14/22 Rx cholecalciferol (vitamin D3) 10 10 mcg PO DAILY 12/10/21 06/15/22 06/14/22 History mcg (400 unit) capsule lorazepam 0.5 mg tablet (Ativan) See Rx Instructions PO .Q6-8Hr PRN 12/10/21 06/15/22 Unknown Rx anxiety #30 tabs celecoxib 50 mg capsule (Celebrex) 50 mg PO DAILY PRN Pain 02/12/22 06/15/22 Unknown History misoprostol 100 mcg tablet 100 mcg PO BID 06/15/22 06/15/22 06/14/22 History Allergies Allergy/AdvReac Type Severity Reaction Status Date / Time No Known Allergies Allergy Verified 05/08/22 14:53 Current Medications Generic Name Dose Route Start Last Admin Trade Name Freq PRN Reason Stop Dose Admin Acetaminophen 650 mg 06/15/22 12:15 06/16/22 05:14 Acetaminophen 325 Mg Tablet PO 650 mg Q6H ARCELIA Administration Albuterol/Ipratropium 3 ml 06/15/22 20:00 06/16/22 08:34 Ipratropium-Albuterol 3 Ml Neb INHALATION 3 ml Q6H ARCELIA Administration Amlodipine Besylate 2.5 mg 06/16/22 09:00 06/16/22 08:15 Amlodipine 5 Mg Tablet PO 2.5 mg DAILY ARCELIA Administration Budesonide 0.5 mg 06/15/22 20:00 06/16/22 08:34 Budesonide 0.5 Mg/2 Ml Neb INHALATION 0.5 mg BID.RESPIRATORY ARCELIA Administration Docusate Sodium 100 mg 06/15/22 18:00 06/16/22 08:17 Docusate Sodium 100 Mg Capsule PO Not Given BID ARCELIA Enoxaparin Sodium 40 mg 06/15/22 12:15 06/15/22 13:06 Enoxaparin 40 Mg/0.4 Ml Syringe SUBCUT 40 mg Q24H ARCELIA Administration Famotidine 20 mg 06/15/22 18:00 06/16/22 08:15 Famotidine 20 Mg Tablet PO 20 mg BID ARCELIA Administration Potassium Chloride/Dextrose/Sod Cl 20 meq in 1,000 mls @ 75 mls/hr 06/15/22 12:15 06/16/22 06:03 D5-Ns 0.45% + Kcl 20 Meq IV 75 mls/hr .[id number] ARCELIA Administration Piperacillin Sod/Tazobactam 50 mls @ 12.5 mls/hr 06/15/22 20:00 06/16/22 08:15 Sod 3.375 gm/ Sodium Chloride IV Infused Q8H ARCELIA Infusion Morphine Sulfate 2 mg 06/15/22 12:15 06/16/22 08:15 Morphine 4 Mg/Ml Sdv 1 Ml IVP 2 mg Q4H PRN Administration SEVERE PAIN Oxycodone HCl 5 mg 06/15/22 12:15 06/16/22 11:28 Oxycodone 5 Mg Ir Tab/Cap PO 5 mg Q6H PRN Administration SEVERE PAIN Pantoprazole Sodium 40 mg 06/15/22 18:00 06/16/22 08:[address] 40 Mg Tablet PO 40 mg BID ARCELIA Administration PFSH Anesthesia Medical History (Updated 06/15/22 @ 13:19 by Aurelio Drake M.D) Accelerated essential hypertension BPH w/o urinary obs/LUTS Cataracts, bilateral Elevated PSA Enlarged lymph nodes Epididymitis GERD (gastroesophageal reflux disease) Gross hematuria Hypercholesterolemia Hyperlipidemia Hypertension Inguinal hernia Osteoarthritis Prediabetes Rotator cuff tear, non-traumatic Surgical History H/O prostate biopsy History of rotator cuff surgery left shoulder Hx of hernia repair Hx of prostate biopsy Family History Mother , AT AGE 64 Diabetes Hypertension Hyperlipidemia Father , AT AGE 66 Cancer LUNG Hyperlipidemia Denies family history of CAD (coronary artery disease) Clotting disorder Dementia Psychiatric illness Chronic kidney disease (CKD) Suicide Anesthesia complication Bleeding disorder Lung disease Stroke Social History Smoking and tobacco status: current every day smoker (0.5 ppd, smoked x 18 years) cigarettes Packs smoked per day: 0.5 Alcohol intake: current Alcohol intake frequency: 0-2 Drinks per Day Marital status: Current occupational status: retired Data Anesthesia 06/16/22 03:09 06/16/22 03:09 Short CBC 06/15/22 06/16/22 Range/Units 10:06 03:09 WBC 11.0 H 10.0 (4.0-10.0) 10^3/uL Hgb 14.1 13.5 (11.7-16.6) g/dL Hct 42.6 42.4 (42.0-52.0) % MCV 89.3 91.2 (80-94) fl Plt Count 143 125 L (130-400) 10^3/cmm Neut % (Auto) 86.8 % Neut # (Auto) 9.55 H (1.8-7.7) 10^3/uL BMP 06/15/22 06/16/22 10:06 03:09 Sodium 139 133 L Potassium 3.8 4.1 Chloride 103 100 Carbon Dioxide 22 25 BUN 14 13 Creatinine 0.9 1.1 Glucose 112 100 Calcium 9.3 9.2 Liver Function 06/15/22 06/16/22 Range/Units 10:06 03:09 Total Bilirubin 0.6 0.6 (0.15-1.2) mg/dL AST 18 20 (0-40) U/L ALT 22 17 (0-41) U/L Alkaline Phosphatase 202 H 180 H (40-130) U/L Albumin 4.2 3.5 (3.5-5.2) g/dL Urine 06/15/22 Range/Units 15:15 Urine Color Dark yellow (Yellow) Urine Appearance Hazy A (CLEAR) Urine pH 6 (5-7) Ur Specific [place] 1.020 (1.005-1.030) Urine Protein 1+ H (Negative) Urine Glucose (UA) Norm (Normal) Urine Ketones Negative (Negative) Urine Nitrate Negative (Negative) Urine Bilirubin Neg (Negative) Ur Leukocyte Esterase Trace H (Negative) Urine RBC 10-15 H (0-2) /hpf Urine WBC >100 H (0-5) /hpf Cardiac Studies: No Data to Display
--- NOTE | 2022-06-16 14:25 | P.OP_ITS ---
Operative Report Date of procedure: June 16, 2022 Pre-op diagnosis: acute cholecystitis Post-op diagnosis: same Procedure done: Laparoscopic cholecystectomy Specimens removed/disposition: Gallbladder Surgeon: Jama Almodovar Anesthesia: General Estimated blood loss (mL): 10 Complications: None noted Findings: Distended, friable, acutely inflamed gallbladder with areas of necrosis Condition: stable Disposition: PACU Brief History: This is a 66-year-old gentleman who presents with abdominal pain. The patient was found to have acute cholecystitis. The patient also had COPD. The patient was admitted to the surgery service. The patient was started on bronchodilators and inhalers in order to improve his pulmonary function. Cardiology was consulted. They cleared the patient for surgery. This morning the patient's abdomen remained tender. Patient stated that his pain was unchanged. Because of this I thought the best thing to do would be to take the patient to the operating room. The risk and benefits of laparoscopic cholecystectomy had been explained to the patient. The patient seemed understand these risk and benefits and wanted to proceed. Procedure: Procedure in detail: The patient was brought to the operating room and placed in supine position. After adequate general endotracheal anesthesia, the patient's abdomen was prepped and draped in usual sterile fashion. Following this, a timeout was performed. The patient's identifiers as well as the goals procedure were discussed. Everyone in the room agreed. The patient had a previous left upper quadrant incision. Because of this a towel clip was placed on each side of the umbilicus. A curvilinear incision was made with a skin knife in the inferior aspect of the umbilicus. Through this incision a Veress needle was placed in the patient's abdomen. The patient's abdomen is insufflated to 15 mmHg. The Veress needle was now removed and a 12 mm port was placed through this wound into the abdomen. The scope was now placed through the 12 mm port. The patient had adhesions in the left upper quadrant. Because of this the subxiphoid port was placed a little bit more medial than normal. This was a 12 mm port. Now a 5 mm port was placed inferior to the costal margin and along the midclavicular line and another 5 mm port was placed along the anterior axillary line. The patient was placed in reverse Trendelenburg and rolled with his left side down his right side up in order for the bowels the following from the right upper quadrant. The patient had a thick cake of omentum which was adherent to t he gallbladder. This was pulled down. The patient's gallbladder was extremely distended. It was erythematous, and was friable. It also had areas of necrosis. It was impossible to grasp because of this the needle was stuck through the midclavicular port directly into the gallbladder and approximately 30 cc worth of greenish bile was aspirated. This was enough to allow us to grab the gallbladder. Now a grasper was placed on the dome of the gallbladder and this was lifted both anteriorly and cephalad in order to place the gallbladder on stretch the night another grasper was placed lower on the gallbladder towards the infundibulum. Now using a [place] dissection was continued down the gallbladder until the cystic duct was encountered. This was isolated from the surrounding structures. The suction home manager was also used to aid with dissection. The cystic artery was now also seen. The gallbladder was retracted laterally and the Bovie cautery was used to take the gallbladder off the gallbladder fossa for several centimeters. This was medial dissection. This allowed us to obtain the critical view of safety. Everything of been clean off except for 2 structures going into the gallbladder. The cystic duct was clipped 1 clip close to the gallbladder and 2 clips more distally for the cystic artery 1 clip close to the gallbladder and 2 clips more distally and scissors were used to transect the cystic artery and cystic duct. Now the gallbladder was bovied out of the gallbladder fossa. There was some bleeding from the gallbladder fossa but this was controlled with a Bovie cautery as we were manipulating the gallbladder the gallbladder tore. The spilled bile into the abdomen. The suction home manager was used to suction out the bile and also the suction of the gallbladder. Now the gallbladder was completely removed from the gallbladder fossa and placed in an Endobag. The patient was allowed to flatten out. The suction home manager was again used to suction lateral to the liver and inferior to the liver. The gallbladder fossa was carefully inspected there was no bleeding from the gallbladder fossa the clips on the cystic duct and cystic artery appeared to be in good position. Now the Endobag was pulled out of the abdomen through the subxiphoid port. Now the other two 5 mm ports were removed under direct vision. There is no bleeding from the port sites. The abdomen is allowed to deflate. The final umbilical port was removed. 0 Vicryl was used to reapproximate the fascia at both the subxiphoid and umbilical incisions and then finally 4-0 Monocryl was used in a subcuticular fashion to close the skin. Dermabond was applied. The patient was awakened and taken recovery room in stable condition. I spoke with the patient's and sister at length. I explained to them the above findings. All questions were addressed.
--- NOTE | 2022-06-16 14:28 | ANE.PACU2 ---
Inpatient post-anesthesia follow up: Vital signs: Temperature 101.8 F Pulse Rate 93 Respiratory Rate 20 Blood Pressure 138/89 Pulse Oximetry 93 Oxygen Delivery Me thod Room Air Oxygen Flow Rate 2 Fraction of Inspir ed Oxygen Hydration adequate: Yes Nausea and vomiting: No Pain level: 2 Mental status: Baseline
--- NOTE | 2022-06-16 14:32 | PC.NURSE ---
oral airway removed @ 0947
[2022-06-17] VITALS (8 sets, daily range): BP systolic 138–153; BP diastolic 84–96; PULSE 67–77; RESP 18; TEMP 36.6–36.9; O2SAT 96–100
[2022-06-17] MEDS: ipratropium-albuterol 3 mL Neb INHALATION ×2 (03:03→08:24)
[2022-06-17] MEDS: piperacillin-tazobactam 3.375 GM in sodium chloride 0.9% (plus) 50 ML IV (04:22)
[2022-06-17 04:59] LABS: Basophils % 0.1 %; Hematocrit 38.6 % (42.0-52.0); Hemoglobin 12.4 g/dL (11.7-16.6); Lymphocytes # 0.4 10^3/uL (0.8-4.8); Lymphocytes % 4.5 %; Mean Corpuscular HGB Conc 32.1 g/dL (30.0-36.0); Mean Corpuscular Hemoglobin 29.2 pg (28.0-34.0); Mean Platelet Volume 11.9 fL (7.4-10.4); Monocytes # 0.8 10^3/uL (0.2-0.9); Monocytes % 9.2 %; Neutrophils # 7.75 10^3/uL (1.8-7.7); Neutrophils % 85.2 %; Nucleated Red Blood Cells % 0 %; Platelet Count 113 10^3/cmm (130-400); Red Blood Count 4.24 10^6/uL (4.1-5.3); Red Cell Distribution Width 15.3 % (12.1-15.1); White Blood Count 9.1 10^3/uL (4.0-10.0)
[2022-06-17 05:20] LABS: Alanine Aminotransferase 37 U/L (0-41); Albumin Level 3.1 g/dL (3.5-5.2); Alkaline Phosphatase 145 U/L (40-130); Anion Gap 16.2 (5-19); Aspartate Amino Transferase 48 U/L (0-40); Blood Urea Nitrogen 13 mg/dL (8-23); Calcium 9.1 mg/dL (8.5-10.5); Carbon Dioxide 22 mmol/L (22-29); Chloride 105 mmol/L (98-107); Globulin 3.4 g/dL (1.3-4.6); Glomerular Filtration Rate 90.7 mL/min (90-130); Glucose 136 mg/dL (65-115); Osmolality Calculated 290 mOsm/kg (285-295); Potassium 4.2 mmol/L (3.5-5.1); Sodium 139 mmol/L (136-145); Total Bilirubin 0.4 mg/dL (0.15-1.2); Total Protein 6.5 g/dL (6.6-8.7)
[2022-06-17] MEDS: acetaminophen 325 mg Tablet 650 MG PO (05:35)
[2022-06-17] MEDS: budesonide 0.5 mg/2 mL Neb INHALATION (08:24)
[2022-06-17] MEDS: docusate sodium 100 mg Capsule PO (08:58)
[2022-06-17] MEDS: amlodipine 5 mg Tablet 2.5 MG PO (08:58)
[2022-06-17] MEDS: famotidine 20 mg Tablet PO (08:58)
[2022-06-17] MEDS: pantoprazole DR 40 mg Tablet PO (08:58)
--- NOTE | 2022-06-17 09:40 | PM.PN ---
Subjective Subjective: The patient is done well overnight. The patient states that he feels much better. He is tolerating both dinner and breakfast. He had no nausea or vomiting. He has been able to ambulate without difficulty. Medications: Reviewed: Yes Vitals/I&O/Wt Last Vital Signs Temp 98.5 F 06/17/22 07:40 Pulse 68 06/17/22 08:34 Resp 18 06/17/22 08:34 BP 153/96 06/17/22 07:40 Pulse Ox 96 06/17/22 08:34 O2 Del Method 06/17/22 08:34 O2 Flow Rate 2.5 06/17/22 08:31 06/16/22 06/17/22 06/17/22 22:59 06:59 14:59 Intake Total 1480 / 2305 50 / 2355 360 / 360 Output Total 750 / 755 Balance 1480 / 2300 -700 / 1600 360 / 360 Weight last 48 hrs Weight 270 lb Physical Exam Narrative: Generally: No acute distress Lungs: Clear to auscultation Heart: Regular rate and rhythm Abdomen: Obese, soft, nontender. Wounds look good. The patient has decreased bowel sounds without rushes or tinkles. Neurologic: Patient is awake, alert, oriented x3. Data 06/17/22 04:23 06/17/22 04:23 Attestation for Other Data: I personally reviewed and interpreted the following: (Reviewed all labs) A&P Assessment and plan (1) Acute cholecystitis: the patient can follow-up with Dr. Paulino for wound check in 1 week. We will give the patient a prescription for oxycodone 5 mg tablets will dispense 10. 1 to 2 tablets by mouth every 6 hours as needed pain. No heavy lifting for 1 week. The patient can take showers but no baths for 1 week. Attestations Medical Necessity Statement*: discharge Coding Level of Care Code Acute Code for [facility] Diagnoses Acute cholecystitis K81.0
--- NOTE | 2022-06-17 09:43 | P.DS_ITS ---
Discharge Providers Date of Admission: 06/15/22 14:03 Date of Discharge: June 17, 2022 Attending Provider at Admission: Jama Almodovar MD Attending Provider at Discharge: Jama Almodovar MD Primary Care Provider: CARINA Matrinez Diagnoses at Discharge Discharge Diagnosis (1) Acute cholecystitis: Details from hospital stay: The patient was admitted with patient did not get significantly better with 24 hours of worth of antibiotics therefore the patient was taken the operating room where he underwent a laparoscopic cholecystectomy. Patient tolerated procedure well. Has done well postoperatively. Status: Acute Reason for Visit Reason for Visit: RLQ Abd Pain Hospital Course Hospital Course The right upper quadrant abdominal pain. The patient underwent a CT scan in the emergency room which showed acute cholecystitis. The patient was admitted and started on Zosyn. The patient has a history of COPD. I wanted the patient's lungs to get significantly better before we took him to surgery. The patient was started on breathing treatments. The patient's wheezing did resolve. The following morning the patient remained tender and therefore the patient was taken to the operating room where he underwent a laparoscopic cholecystectomy. The patient did well overnight. The patient tolerated the regular diet. The patient's liver functions are slightly elevated with a normal total bilirubin. I believe the patient is okay to be discharged home at this time. Physical Exam Narrative: Abdomen: Soft, wounds are clean and dry Discharge Data Studies Completed and Pending Completed Studies During Hospitalization Category Date Time Status CT abdomen pelvis wo con [id number] Stat Cat Scan 06/15/22 10:49 Completed CV. echo complete* [id number] Routine Ultrasound 06/16/22 06:00 Completed Pending at discharge Category Date Time Status Complete Blood Count w/Auto AM LABS Lab 06/18/22 04:00 Ordered Comprehensive Metabolic Panel AM LABS Lab 06/18/22 04:00 Ordered Urine Culture Stat Lab 06/15/22 15:15 Received Pathology: Surgical [PTH] Routine Pth 06/16/22 14:03 Ordered Radiology Impressions Abdomen/Pelvis CT 06/15/22 10:49 IMPRESSION: 1. Acute cholecystitis. 2. Hepatic steatosis. 3. Incidental findings above. Laboratory Results WBC 9.1 10^3/uL (4.0-10.0) 06/17/22 04:23 RBC 4.24 10^6/uL (4.1-5.3) 06/17/22 04:23 Hgb 12.4 g/dL (11.7-16.6) 06/17/22 04: Hct 38.6 % (42.0-52.0) L 06/17/22 04: MCV 91.0 fl (80-94) 06/17/22 04:23 MCH 29.2 pg (28.0-34.0) 06/17/22 04: MCHC 32.1 g/dL (30.0-36.0) 06/17/22 04: RDW 15.3 % (12.1-15.1) H 06/17/22 04:23 Plt Count 113 10^3/cmm (130-400) L 06/17/22 04: MPV 11.9 fL (7.4-10.4) H 06/17/22 04:23 Neut % (Auto) 85.2 % 06/17/22 04: Lymph % (Auto) 4.5 % 06/17/22 04: [place] % (Auto) 9.2 % 06/17/22 04: Eos % (Auto) 0.0 % 06/17/22 04:23 Baso % (Auto) 0.1 % 06/17/22 04: Neut # (Auto) 7.75 10^3/uL (1.8-7.7) H 06/17/22 04:23 Lymph # (Auto) 0.4 10^3/uL (0.8-4.8) L 06/17/22 04:23 [place] # (Auto) 0.8 10^3/uL (0.2-0.9) 06/17/22 04:23 Eos # (Auto) 0.0 10^3/uL (0.0-0.8) 06/17/22 04:23 Baso # (Auto) 0.0 10^3/uL (0.0-0.1) 06/17/22 04:23 Nucleated RBC % (auto) 0 % 06/17/22 04:23 Total Counted 100 (0-100) 06/16/22 03:09 Atypical Lymphs % 0.0 % (0-5) 06/16/22 03:09 Absolute Neutrophils 8.9 10^3/cmm (1.4-6.5) H 06/16/22 03:09 Segmented Neutrophils 87 % 06/16/22 03:09 Abs Segm Neuts (Man) 8.7 10/cmm (1.6-7.1) H 06/16/22 03:09 Band Neutrophils 2.0 % 06/16/22 03:09 Abs Band Neuts (Man) 0.2 10^3/cmm (0.0-1.2) 06/16/22 03:09 Absolute Lymphocytes 0.4 10^3/cmm (1.2-3.4) L 06/16/22 03:09 Lymphocytes (Manual) 4 % 06/16/22 03:09 Monocytes (Manual) 6.0 % 06/16/22 03:09 Absolute Monocytes 0.6 10^3/cmm (0.1-0.6) 06/16/22 03:09 Eosinophils (Manual) 0 % 06/16/22 03:09 Absolute Eosinophils 0.0 10^3/cmm (0.0-0.7) 06/16/22 03:09 Basophils (Manual) 0.0 % 06/16/22 03:09 Absolute Basophils 0.0 10^3/cmm (0.0-0.2) 06/16/22 03:09 Metamyelocytes 1.0 % 06/16/22 03:09 Nucleated RBCs # 0.0 /100WBC 06/17/22 04:23 Toxic Granulation 1+ H 06/16/22 03:09 Toxic Vacuolation Trace 06/16/22 03:09 Platelet Estimate Decreased (Normal) 06/16/22 03:09 Microcytosis Trace 06/16/22 03:09 Spherocytes 1+ 06/16/22 03:09 Sodium 139 mmol/L (136-145) 06/17/22 04:23 Potassium 4.2 mmol/L (3.5-5.1) 06/17/22 04:23 Chloride 105 mmol/L (98-107) 06/17/22 04:23 Carbon Dioxide 22 mmol/L (22-29) 06/17/22 04:23 Anion Gap 16.2 (5-19) 06/17/22 04:23 BUN 13 mg/dL (8-23) 06/17/22 04:23 Creatinine 1.0 mg/dL (0.7-1.2) 06/17/22 04:23 GFR Calculation 90.7 mL/min (90-130) 06/17/22 04:23 Glucose 136 mg/dL (65-115) H 06/17/22 04: Calculated Osmolality 290 mOsm/kg (285-295) 06/17/22 04: Calcium 9.1 mg/dL (8.5-10.5) 06/17/22 04: Total Bilirubin 0.4 mg/dL (0.15-1.2) 06/17/22 04: AST 48 U/L (0-40) H 06/17/22 04: ALT 37 U/L (0-41) 06/17/22 04: Alkaline Phosphatase 145 U/L (40-130) H 06/17/22 04: Total Protein 6.5 g/dL (6.6-8.7) L 06/17/22 04: Albumin 3.1 g/dL (3.5-5.2) L 06/17/22 04: Globulin 3.4 g/dL (1.3-4.6) 06/17/22 04:23 Urine Color Dark yellow (Yellow) 06/15/22 15:15 Urine Appearance Hazy (CLEAR) A 06/15/22 15:15 Urine pH 6 (5-7) 06/15/22 15:15 Ur Specific [place] 1.020 (1.005-1.030) 06/15/22 15:15 Urine Protein 1+ (Negative) H 06/15/22 15:15 Urine Glucose (UA) Norm (Normal) 06/15/22 15:15 Urine Ketones Negative (Negative) 06/15/22 15:15 Urine Blood 2+ (Negative) H 06/15/22 15:15 Urine Nitrate Negative (Negative) 06/15/22 15:15 Urine Bilirubin Neg (Negative) 06/15/22 15:15 Urine Urobilinogen 1 mg/dL (Negative) H 06/15/22 15:15 Ur Leukocyte Esterase Trace (Negative) H 06/15/22 15:15 Urine RBC 10-15 /hpf (0-2) H 06/15/22 15:15 Urine WBC >100 /hpf (0-5) H 06/15/22 15:15 Ur Squamous Epith Cells Rare /hpf (0-5) 06/15/22 15:15 Ur Transition Epith Cell Rare /hpf 06/15/22 15:15 Amorphous Sediment Not Reportable 06/15/22 15:15 Urine Bacteria 2+ /hpf (NONE) H 06/15/22 15:15 Urine Mucus 2+ /hpf 06/15/22 15:15 Procedures Performed Laparoscopic cholecystectomy Vitals Last Vital Signs Temp 98.5 F 06/17/22 07:40 Pulse 68 06/17/22 08:34 Resp 18 06/17/22 08:34 BP 153/96 06/17/22 07:40 Pulse Ox 96 06/17/22 08:34 O2 Del Method 06/17/22 08:34 O2 Flow Rate 2.5 06/17/22 08:31 Discharge Plan Discharge Patient Disposition: Home Condition: Stable Prescriptions: New oxycodone 5 mg Tablet 5 mg PO Q6H PRN (Reason: Severe Pain) 7 Days Qty: 10 0RF Continued aspirin [Adult Low Dose Aspirin] 81 mg tablet,delayed release (DR/EC) 81 mg PO DAILY rosuvastatin 10 mg tablet 5 mg PO DAILY hydrochlorothiazide 25 mg tablet 25 mg PO DAILY meloxicam 15 mg tablet 15 mg PO DAILY Qty: 90 1RF cholecalciferol (vitamin D3) 10 mcg (400 unit) capsule 10 mcg PO DAILY lorazepam [Ativan] 0.5 mg tablet See Rx Instructions PO .Q6-8Hr PRN (Reason: anxiety) Qty: 30 0RF Rx Instructions: 1-2 tabs PO .Q6-8Hr PRN; celecoxib [Celebrex] 50 mg capsule 50 mg PO DAILY PRN (Reason: Pain) omeprazole 20 mg Capsule,Delayed Release(Dr/Ec) 20 mg PO DAILY budesonide-formoterol [Symbicort] 80-4.5 mcg/actuation Hfa Aerosol Inhaler 2 puff INHALATION BID amlodipine 5 mg tablet 2.5 mg PO DAILY misoprostol 100 mcg Tablet 100 mcg PO BID Referrals: Isacc Paulino DO [Physician] - 1 week (wound check) Annika Lopez FNP [Primary Care Provider] - Discharge Diet: Regular Discharge Activity: Increase activity as tolerated Patient Instructions: Opioid Safety, Post Anesthesia Care Activity Restrictions/Additional Instructions: May take showers. Make sure you dry off the wounds extremely well. No baths for 1 week. No lifting greater than 10 pounds for 1 week. Can resume normal activity after 1 week Discharge Attestations Time Spent in Discharge Care*: less than 30 min Quality Metrics Clinical Quality Measures [ No reported AMI, CVA or VTE this stay] Coding Level of Care Code Acute Code for [facility] Diagnoses Acute cholecystitis K81.0
--- NOTE | 2022-06-17 10:29 | PC.CHAP ---
Pastoral Care Encounter/Spiritual Assessment Type of Contact [] Declined miner operator visit [] Patient/Family/Request visit [] Outpatient visit [] Follow-up visit [] Physician referral [] Code/Alert [x] Routine visit [] Staff referral [] Actively dying [] Patient sleeping [x] Family support [] [] Out of room [] Palliative care [] [] Receiving care in room [] Pre-surgical visit [] Trauma [] Long length of stay [] ICU visit [] Other: Relational/Emotional Strength [x] Patient feels connected with others/family/visitors/staff [] Distress [] Loneliness/isolation [] Abandonment Spirituality of Patient [x] Person of Ashely [] Attends Methodist of their [place] [x] Believes in Prayer [] Reads Bible or Druze materials [] There are Spiritual issues to be addressed Chemical Radiation Technician Interventions [x] Prayer [] Active listening [] Non-anxious presence [] Spiritual/emotional support [] Crisis/trauma care [] Spiritual counseling [] Bereavement support [] Provided bereavement packet [] Provided Bible/devotional materials [] Provided toy/stuffed animal, coloring book to patient or family member [] Provided Communion [] Anointing/[place] [] Salvation [x] Completed spiritual assessment [] Other: Impact on Illness or Injury [] Angry [] Fearful [] Anxious [] Often cries [] Exhaustion [] Unable to work [] Unable to attend episcopalian [] Unable to walk/stand [] Unable to read [] Unable to drive [] Unable to eat/drink [] Unable to sleep [] Unable to be with family [] Patient intubated [] Other: Summary Time spent with patient 5 min
--- NOTE | 2022-06-17 11:00 | PC.NURSE ---
IV removed intact. Patient tolerated well. Patient is A&OX#3. Respirations even and non-labored on room air. Patient verbalized understanding to get the prescription provided to him filled for pain and verbalized he understood how to take it. Patient was unwilling to wait for the [facility] Patient states, I can drive over there from here and get one quicker then you waiting on the phone for hours. Patient verbalized understanding of follow up appointment with the surgeon. Patient wheel chaired to private car.
== END 2022-06-17 11:15 | disposition home or self-care (01) | DRG 419 ==
LOC: ER 13:10 → MEDSURG 14:04
PROVIDERS: Admitting Provider Surgery Surgical Critical Care; Emergency Provider Family Medicine; PCP Nurse Practitioner; Visit Provider Surgery Surgical Critical Care
PROC: 0FT44ZZ Resection of Gallbladder, Percutaneous Endoscopic Approach (ICD-10-PCS; CPT 47562; principal; 2022-06-16 12:30)
DX: K81.0 Acute cholecystitis (principal); J44.9 Chronic obstructive pulmonary disease, unspecified; Z79.82 Long term (current) use of aspirin; I10 Essential (primary) hypertension; N40.1 Benign prostatic hyperplasia with lower urinary tract symptoms; K21.9 Gastro-esophageal reflux disease without esophagitis; E78.5 Hyperlipidemia, unspecified; F17.210 Nicotine dependence, cigarettes, uncomplicated; R73.03 Prediabetes; C61 Malignant neoplasm of prostate
CPT/HCPCS: 36415; 74176; 80053; 81001; 85007; 85025; 87086; 88304; 93005; 93306; 94640; 94664; 96365; 96367; 96372; 96375; 99285; J0131; J0330; J1100; J1650; J2270; J2405; J2543; J2704; J2710; J3010; J3490; J7030; J7626

== ENCOUNTER 2022-06-27 09:24 | Oncology outpatient (recurring) (ONCR) | payer OTHER, SELFPAY ==
[2022-06-27 09:46] LABS: Basophils % 0.3 %; Eosinophils # 0.1 10^3/uL (0.0-0.8); Eosinophils % 2.1 %; Hematocrit 40.5 % (42.0-52.0); Hemoglobin 13.1 g/dL (11.7-16.6); Lymphocytes # 0.9 10^3/uL (0.8-4.8); Lymphocytes % 13.7 %; Mean Corpuscular HGB Conc 32.3 g/dL (30.0-36.0); Mean Corpuscular Hemoglobin 29.8 pg (28.0-34.0); Mean Platelet Volume 9.4 fL (7.4-10.4); Monocytes # 0.7 10^3/uL (0.2-0.9); Monocytes % 11.5 %; Neutrophils # 4.51 10^3/uL (1.8-7.7); Neutrophils % 71.9 %; Nucleated Red Blood Cells % 0 %; Platelet Count 478 10^3/cmm (130-400); Red Cell Distribution Width 15.5 % (12.1-15.1); White Blood Count 6.3 10^3/uL (4.0-10.0)
[2022-06-27 10:22] LABS: Alanine Aminotransferase 24 U/L (0-41); Albumin Level 3.7 g/dL (3.5-5.2); Alkaline Phosphatase 166 U/L (40-130); Anion Gap 17.7 (5-19); Aspartate Amino Transferase 20 U/L (0-40); Blood Urea Nitrogen 14 mg/dL (8-23); Calcium 9.3 mg/dL (8.5-10.5); Carbon Dioxide 23 mmol/L (22-29); Chloride 104 mmol/L (98-107); Globulin 3.5 g/dL (1.3-4.6); Glomerular Filtration Rate 90.7 mL/min (90-130); Glucose 114 mg/dL (65-115); Osmolality Calculated 291 mOsm/kg (285-295); Potassium 4.7 mmol/L (3.5-5.1); Sodium 140 mmol/L (136-145); Testosterone Total 2.5 ng/dL (193-740); Total Bilirubin 0.2 mg/dL (0.15-1.2); Total Protein 7.2 g/dL (6.6-8.7)
[2022-06-27 10:24] LABS: Prostate Specific Antigen < 0.014 ng/mL (0-4)
[2022-06-27] MEDS: leuprolide 22.5 mg Kit IM (11:50)
[2022-06-27 11:55] VITALS: BP 119/73; PULSE 69; RESP 16; TEMP 35.8; O2SAT 95
== END 2022-07-07 23:59 | disposition home or self-care (01) ==
PROVIDERS: Nurse Practitioner; PCP Nurse Practitioner; Visit Provider Radiology Radiation Oncology
DX: C61 Malignant neoplasm of prostate (principal); F17.210 Nicotine dependence, cigarettes, uncomplicated; Z79.52 Long term (current) use of systemic steroids; Z79.818 Long term (current) use of other agents affecting estrogen receptors and estrogen levels; Z79.899 Other long term (current) drug therapy; Z95.828 Presence of other vascular implants and grafts; Z92.21 Personal history of antineoplastic chemotherapy; Z92.3 Personal history of irradiation
CPT/HCPCS: 80053; 84153; 84403; 85025; 96402; 99213; J9217

== ENCOUNTER → 2022-07-09 14:17 | Outpatient (BNVA) | payer OTHER, SELFPAY | PROVIDERS: PCP Nurse Practitioner; Visit Provider Surgery | DX: Z98.890 Other specified postprocedural states (principal); Z90.49 Acquired absence of other specified parts of digestive tract | CPT/HCPCS: 99024 ==

== ENCOUNTER 2022-08-28 13:19 | Outpatient (CLI) | payer OTHER, SELFPAY ==
[2022-08-28 13:38] VITALS: PULSE 72; RESP 18; O2SAT 96
[2022-08-28] MEDS: albuterol 2.5 mg/3 mL Neb INHALATION (13:38)
[2022-08-28 13:43] VITALS: PULSE 71
== END 2022-08-28 13:20 | disposition home or self-care (01) ==
LOC: RT 13:20
PROVIDERS: PCP Nurse Practitioner; Visit Provider Nurse Practitioner Family
DX: J43.9 Emphysema, unspecified (principal); F17.210 Nicotine dependence, cigarettes, uncomplicated; R94.2 Abnormal results of pulmonary function studies
CPT/HCPCS: 94060; 94726; 94729; J7613

== ENCOUNTER 2022-09-19 13:44 | Oncology outpatient (recurring) (ONCR) | payer OTHER, SELFPAY ==
[2022-09-19 13:55] VITALS: BP 147/79; PULSE 65; RESP 18; TEMP 36.2; O2SAT 96
[2022-09-19 14:07] LABS: Basophils % 0.7 %; Eosinophils # 0.1 10^3/uL (0.0-0.8); Hematocrit 42.8 % (42.0-52.0); Hemoglobin 14.2 g/dL (11.7-16.6); Lymphocytes # 0.8 10^3/uL (0.8-4.8); Lymphocytes % 25.2 %; Mean Corpuscular HGB Conc 33.2 g/dL (30.0-36.0); Mean Corpuscular Hemoglobin 29.8 pg (28.0-34.0); Mean Corpuscular Volume 89.9 fl (80-94); Mean Platelet Volume 10.9 fL (7.4-10.4); Monocytes # 0.5 10^3/uL (0.2-0.9); Monocytes % 15.9 %; Neutrophils # 1.65 10^3/uL (1.8-7.7); Neutrophils % 54.9 %; Nucleated Red Blood Cells % 0 %; Platelet Count 186 10^3/cmm (130-400); Red Blood Count 4.76 10^6/uL (4.1-5.3); Red Cell Distribution Width 15.3 % (12.1-15.1)
[2022-09-19 14:38] LABS: Alanine Aminotransferase 21 U/L (0-41); Albumin Level 4.1 g/dL (3.5-5.2); Alkaline Phosphatase 293 U/L (40-130); Aspartate Amino Transferase 22 U/L (0-40); Blood Urea Nitrogen 9 mg/dL (8-23); Calcium 9.5 mg/dL (8.5-10.5); Carbon Dioxide 27 mmol/L (22-29); Chloride 106 mmol/L (98-107); Globulin 2.8 g/dL (1.3-4.6); Glomerular Filtration Rate 102.2 mL/min (90-130); Glucose 108 mg/dL (65-115); Osmolality Calculated 295 mOsm/kg (285-295); Sodium 143 mmol/L (136-145); Testosterone Total 2.5 ng/dL (193-740); Total Bilirubin 0.2 mg/dL (0.15-1.2); Total Protein 6.9 g/dL (6.6-8.7)
[2022-09-19 14:41] LABS: Anion Gap 14.1 (5-19); Potassium 4.1 mmol/L (3.5-5.1); Prostate Specific Antigen < 0.014 ng/mL (0-4)
[2022-09-19] MEDS: leuprolide 22.5 mg Kit IM (15:34)
== END 2022-10-07 23:59 | disposition home or self-care (01) ==
PROVIDERS: Nurse Practitioner Family; PCP Nurse Practitioner; Visit Provider Radiology Radiation Oncology
DX: C61 Malignant neoplasm of prostate (principal); F17.210 Nicotine dependence, cigarettes, uncomplicated; Z79.52 Long term (current) use of systemic steroids; Z79.818 Long term (current) use of other agents affecting estrogen receptors and estrogen levels; Z79.899 Other long term (current) drug therapy; Z95.828 Presence of other vascular implants and grafts; Z92.21 Personal history of antineoplastic chemotherapy; Z92.3 Personal history of irradiation; R79.0 Abnormal level of blood mineral; D70.9 Neutropenia, unspecified
CPT/HCPCS: 36415; 80053; 84153; 84403; 85025; 96402; 99214; J9217

== ENCOUNTER 2022-10-02 08:45 | Outpatient (CLI) | payer OTHER, SELFPAY ==
--- NOTE | 2022-10-02 08:54 | NM_ITS ---
WS: [id number] NUCLEAR MEDICINE BONE SCAN Radiopharmaceutical: 24.0 Tc-99m MDP mCi IV Injection site: Antecubital Postinjection imaging delay: 1 hr CLINICAL INFORMATION: Increased alkaline phosphatase COMPARISON: June 14, 2021 and 2012 FINDINGS: Bone lesions: Radiotracer bony uptake involving the RIGHT humeral head and neck and coracoid similar to 2021 and 2012. Increased degenerative radiotracer uptake in the lower lumbar spine similar to the prior studies. Soft tissue contours: Normal. Kidneys: Normal. Other findings: Degenerative arthritis both AC joints. Degenerative arthritis LEFT greater than RIGHT knees. Degenerative uptake RIGHT hip NM/NM bone scan whole body* [id number] IMPRESSION: 1. No evidence of osseous metastatic disease. 2. Degenerative type uptake similar to the prior studies described above
== END 2022-10-02 08:46 | disposition home or self-care (01) ==
PROVIDERS: PCP Nurse Practitioner; Visit Provider Internal Medicine Hematology & Oncology
DX: R74.8 Abnormal levels of other serum enzymes (principal)
CPT/HCPCS: 78306; A9561

== ENCOUNTER 2022-12-26 13:14 | Oncology outpatient (recurring) (ONCR) | payer OTHER, SELFPAY ==
[2022-12-26 14:00] VITALS: BP 140/77; PULSE 63; RESP 16; TEMP 36.6; O2SAT 95
[2022-12-26 14:07] LABS: Basophils % 0.5 %; Eosinophils # 0.2 10^3/uL (0.0-0.8); Eosinophils % 4.1 %; Hematocrit 42.4 % (37-53); Lymphocytes # 0.8 10^3/uL (0.8-4.8); Lymphocytes % 22.5 %; Mean Corpuscular HGB Conc 33.3 g/dL (30-55); Mean Corpuscular Hemoglobin 30.3 pg (27-33); Mean Platelet Volume 10.8 fL (7.4-10.4); Monocytes # 0.5 10^3/uL (0.2-0.9); Monocytes % 12.5 %; Neutrophils # 2.21 10^3/uL (1.8-7.7); Neutrophils % 59.9 %; Nucleated Red Blood Cells % 0 %; Platelet Count 159 10^3/cmm (157-399); Red Blood Count 4.66 10^6/uL (3.85-5.65); Red Cell Distribution Width 14.8 % (12.1-15.1); White Blood Count 3.69 10^3/uL (3.29-11.43)
[2022-12-26 14:35] LABS: Alanine Aminotransferase 21 U/L (0-41); Albumin Level 4.3 g/dL (3.5-5.2); Alkaline Phosphatase 287 U/L (40-130); Aspartate Amino Transferase 20 U/L (0-40); Blood Urea Nitrogen 15 mg/dL (8-23); Calcium 9.5 mg/dL (8.5-10.5); Carbon Dioxide 26 mmol/L (22-29); Globulin 2.7 g/dL (1.3-4.6); Glomerular Filtration Rate 136.5 mL/min (90-130); Glucose 134 mg/dL (65-115); Total Bilirubin 0.2 mg/dL (0.15-1.2)
[2022-12-26 14:45] LABS: Prostate Specific Antigen < 0.014 ng/mL (0-4)
[2022-12-26 14:59] LABS: Anion Gap 16.8 (5-19); Chloride 100 mmol/L (98-107); Osmolality Calculated 291 mOsm/kg (285-295); Potassium 3.8 mmol/L (3.5-5.1); Sodium 139 mmol/L (136-145)
[2022-12-26] MEDS: leuprolide 22.5 mg Kit IM (15:53)
[2022-12-26 15:54] VITALS: BP 147/79; PULSE 66; RESP 18; TEMP 36.4; O2SAT 98
== END 2023-01-07 23:59 | disposition home or self-care (01) ==
PROVIDERS: Internal Medicine Medical Oncology; PCP Nurse Practitioner; Visit Provider Radiology Radiation Oncology
DX: C61 Malignant neoplasm of prostate (principal); F17.210 Nicotine dependence, cigarettes, uncomplicated; Z79.52 Long term (current) use of systemic steroids; Z79.818 Long term (current) use of other agents affecting estrogen receptors and estrogen levels; Z79.899 Other long term (current) drug therapy; Z95.828 Presence of other vascular implants and grafts; Z92.21 Personal history of antineoplastic chemotherapy; Z92.3 Personal history of irradiation; Z51.11 Encounter for antineoplastic chemotherapy
CPT/HCPCS: 36415; 80053; 84153; 85025; 96402; 99214; J9217

== ENCOUNTER 2023-03-20 09:59 | Oncology outpatient (recurring) (ONCR) | payer OTHER, SELFPAY ==
[2023-03-20 10:35] VITALS: BP 136/78; PULSE 71; RESP 16; TEMP 36.6; O2SAT 90
[2023-03-20 10:56] LABS: Basophils % 0.4 %; Eosinophils # 0.1 10^3/uL (0.0-0.8); Eosinophils % 2.6 %; Hematocrit 41.5 % (37-53); Mean Corpuscular HGB Conc 32.3 g/dL (30-55); Mean Corpuscular Hemoglobin 29.1 pg (27-33); Mean Platelet Volume 10.8 fL (7.4-10.4); Monocytes # 0.6 10^3/uL (0.2-0.9); Monocytes % 13.3 %; Neutrophils # 2.82 10^3/uL (1.8-7.7); Neutrophils % 61.5 %; Nucleated Red Blood Cells % 0 %; Platelet Count 209 10^3/cmm (157-399); Red Blood Count 4.61 10^6/uL (3.85-5.65); Red Cell Distribution Width 14.7 % (12.1-15.1); White Blood Count 4.59 10^3/uL (3.29-11.43)
[2023-03-20 11:32] LABS: Alanine Aminotransferase 20 U/L (0-41); Albumin Level 4.2 g/dL (3.5-5.2); Alkaline Phosphatase 311 U/L (40-130); Anion Gap 13.6 (5-19); Aspartate Amino Transferase 19 U/L (0-40); Blood Urea Nitrogen 24 mg/dL (8-23); Calcium 10.2 mg/dL (8.5-10.5); Carbon Dioxide 27 mmol/L (22-29); Chloride 101 mmol/L (98-107); Globulin 3.3 g/dL (1.3-4.6); Glomerular Filtration Rate 90.5 mL/min (90-130); Glucose 118 mg/dL (65-115); Osmolality Calculated 291 mOsm/kg (285-295); Potassium 3.6 mmol/L (3.5-5.1); Sodium 138 mmol/L (136-145); Total Bilirubin 0.3 mg/dL (0.15-1.2); Total Protein 7.5 g/dL (6.6-8.7)
[2023-03-20 11:35] LABS: Prostate Specific Antigen < 0.014 ng/mL (0-4)
[2023-03-20 11:36] LABS: Testosterone Total < 2.5 ng/dL (193-740)
[2023-03-20] MEDS: leuprolide 22.5 mg Kit IM (12:02)
== END 2023-04-09 23:59 | disposition home or self-care (01) ==
PROVIDERS: Nurse Practitioner Family; PCP Nurse Practitioner; Visit Provider Internal Medicine Medical Oncology
DX: Z51.11 Encounter for antineoplastic chemotherapy (principal); C61 Malignant neoplasm of prostate; F17.210 Nicotine dependence, cigarettes, uncomplicated; Z79.52 Long term (current) use of systemic steroids; Z79.818 Long term (current) use of other agents affecting estrogen receptors and estrogen levels; Z79.899 Other long term (current) drug therapy; Z95.828 Presence of other vascular implants and grafts; Z92.21 Personal history of antineoplastic chemotherapy; Z92.3 Personal history of irradiation
CPT/HCPCS: 36415; 80053; 84153; 84403; 85025; 96402; 99214; J9217

== ENCOUNTER 2023-06-25 15:52 | Oncology outpatient (recurring) (ONCR) | payer OTHER, SELFPAY ==
[2023-06-12 10:19] LABS: Basophils % 0.5 %; Eosinophils # 0.2 10^3/uL (0.0-0.8); Eosinophils % 4.3 %; Hematocrit 45.6 % (37-53); Lymphocytes # 1.1 10^3/uL (0.8-4.8); Lymphocytes % 24.8 %; Mean Corpuscular Hemoglobin 28.4 pg (27-33); Mean Corpuscular Volume 88.7 fl (82-101); Mean Platelet Volume 10.9 fL (7.4-10.4); Monocytes # 0.6 10^3/uL (0.2-0.9); Monocytes % 13.7 %; Neutrophils # 2.48 10^3/uL (1.8-7.7); Neutrophils % 56.5 %; Nucleated Red Blood Cells % 0 %; Platelet Count 191 10^3/cmm (157-399); Red Blood Count 5.14 10^6/uL (3.85-5.65); Red Cell Distribution Width 16.3 % (12.1-15.1); White Blood Count 4.39 10^3/uL (3.29-11.43)
[2023-06-12 10:52] LABS: Alanine Aminotransferase 26 U/L (0-41); Albumin Level 4.3 g/dL (3.5-5.2); Alkaline Phosphatase 353 U/L (40-130); Anion Gap 14.2 (5-19); Aspartate Amino Transferase 24 U/L (0-40); Blood Urea Nitrogen 12 mg/dL (8-23); Calcium 9.8 mg/dL (8.5-10.5); Carbon Dioxide 28 mmol/L (22-29); Chloride 101 mmol/L (98-107); Globulin 3.3 g/dL (1.3-4.6); Glomerular Filtration Rate 102.2 mL/min (90-130); Glucose 115 mg/dL (65-115); Osmolality Calculated 289 mOsm/kg (285-295); Potassium 4.2 mmol/L (3.5-5.1); Prostate Specific Antigen < 0.014 ng/mL (0-4); Sodium 139 mmol/L (136-145); Testosterone Total 2.5 ng/dL (193-740); Total Bilirubin 0.2 mg/dL (0.15-1.2); Total Protein 7.6 g/dL (6.6-8.7)
[2023-06-12] MEDS: leuprolide 22.5 mg Kit IM (11:53)
--- NOTE | 2023-06-25 17:00 | CTR_ITS ---
PROCEDURE INFORMATION: Exam: CT Chest With Contrast; Diagnostic Exam date and time: 06/25/2023 5:08 PM Age: 67 years old Clinical indication: Condition or disease; Other: Follow up prostate cancer; Follow-up oncological assessment; Prior surgery; Surgery date: 6+ months TECHNIQUE: Imaging protocol: Diagnostic computed tomography of the chest with contrast. Radiation optimization: All CT scans at this facility use at least one of these dose optimization techniques: automated exposure control; mA and/or kV adjustment per patient size (includes targeted exams where dose is matched to clinical indication); or iterative reconstruction. Contrast material: OMNIPAQUE; Contrast volume: 100 ml; Contrast route: INTRAVENOUS (IV); COMPARISON: CT chest w con* [id number] 01/05/2019 9:01 AM RADIATION DOSE METRICS: Total DLP (mGy-cm): 1489.46 FINDINGS: Lungs: Mild bibasilar atelectasis/scar. No focal lung consolidation. Stable 0.3 cm peripheral right upper lobe lung nodule best seen on series 5, image 14. Stable 0.5 cm peripheral right lower lobe lung nodule best seen on image 41. Pleural spaces: No pneumothorax. No pleural effusion. Heart: No cardiomegaly. No pericardial effusion. Mediastinal space: The visualized trachea and esophagus are unremarkable in appearance. Lymph nodes: No mediastinal, hilar or axillary lymphadenopathy. Vasculature: No thoracic aortic aneurysm or dissection. Bones/joints: No acute bony abnormality. Soft tissues: Subcutaneous soft tissues are unremarkable. PROCEDURE INFORMATION: Exam: CT Abdomen And Pelvis With Contrast Exam date and time: 06/25/2023 5:08 PM Age: 67 years old Clinical indication: Condition or disease; Other: Follow up prostate cancer; Follow-up oncological assessment; Prior surgery; Surgery date: 6+ months TECHNIQUE: Imaging protocol: Computed tomography of the abdomen and pelvis with contrast. Radiation optimization: All CT scans at this facility use at least one of these dose optimization techniques: automated exposure control; mA and/or kV adjustment per patient size (includes targeted exams where dose is matched to clinical indication); or iterative reconstruction. Contrast material: OMNIPAQUE; Contrast volume: 100 ml; Contrast route: INTRAVENOUS (IV); COMPARISON: CT abdomen pelvis wo con [id number] 06/15/2022 10:53 AM RADIATION DOSE METRICS: Total DLP (mGy-cm): 1489.46 FINDINGS: Liver: Diffuse low-attenuation of the liver compatible with fatty replacement. Gallbladder and bile ducts: Status post cholecystectomy. Pancreas: Pancreas is unremarkable in appearance. No ductal dilation. Spleen: The spleen is normal in size and contour. Adrenal glands: Adrenal glands are unremarkable in appearance. Kidneys and ureters: Kidneys and ureters are unremarkable in appearance. No hydronephrosis. No radio-opaque stone. Stomach and bowel: Scattered colonic diverticula. Appendix: Appendix is normal. Intraperitoneal space: Unremarkable. No free air. No significant fluid collection. Vasculature: Moderate calcified plaque is seen involving the abdominal aorta. Lymph nodes: No abdominal or pelvic lymphadenopathy. Urinary bladder: Nonspecific bladder wall thickening which may be related to underdistention. Cystitis cannot be excluded. Bubble of air is noted within the bladder. Reproductive: Prostate gland measures up to 4.4 cm. Ten Bones/joints: Degenerative changes of the lumbar spine. L2 through L5 laminectomies. Soft tissues: Umbilical hernia containing fat. CT/CT chest abdpel w/*[id number] IMPRESSION: 1. No focal lung consolidation. 2. Stable right lung nodules. IMPRESSION: 1. Nonspecific bladder wall thickening which may be related to underdistention. Cystitis cannot be excluded. Recommend clinical correlation. 2. Diffuse low-attenuation of the liver compatible with fatty replacement.
[2023-06-25] MEDS: iohexol 350 mg/mL 500 mL Btl (per mL) PO (17:15)
[2023-06-25] MEDS: iohexol 350 mg/mL 500 mL Btl (per mL) IV (17:15)
== END 2023-07-08 23:59 | disposition home or self-care (01) ==
LOC: ONCMED 07-04 08:04
PROVIDERS: Nurse Practitioner Family; PCP Nurse Practitioner; Visit Provider Internal Medicine Medical Oncology
DX: Z53.9 Procedure and treatment not carried out, unspecified reason (principal); C61 Malignant neoplasm of prostate; N32.89 Other specified disorders of bladder; K76.89 Other specified diseases of liver
CPT/HCPCS: 36415; 71260; 74177; 80053; 84153; 84403; 85025; 96402; 99214; J9217; Q9967

== ENCOUNTER 2023-09-04 13:04 | Oncology outpatient (recurring) (ONCR) | payer OTHER, SELFPAY ==
[2023-09-04 13:20] LABS: Basophils % 0.3 %; Eosinophils # 0.1 10^3/uL (0.0-0.8); Eosinophils % 2.1 %; Hematocrit 42.2 % (37-53); Lymphocytes # 0.8 10^3/uL (0.8-4.8); Lymphocytes % 24.6 %; Mean Corpuscular HGB Conc 32.9 g/dL (30-55); Mean Corpuscular Hemoglobin 29.1 pg (27-33); Mean Corpuscular Volume 88.5 fl (82-101); Mean Platelet Volume 11.2 fL (7.4-10.4); Monocytes # 0.4 10^3/uL (0.2-0.9); Monocytes % 10.5 %; Neutrophils # 2.08 10^3/uL (1.8-7.7); Neutrophils % 62.2 %; Nucleated Red Blood Cells % 0 %; Platelet Count 161 10^3/cmm (157-399); Red Blood Count 4.77 10^6/uL (3.85-5.65); Red Cell Distribution Width 15.7 % (12.1-15.1); White Blood Count 3.34 10^3/uL (3.29-11.43)
[2023-09-04 13:47] LABS: Alanine Aminotransferase 24 U/L (0-41); Alkaline Phosphatase 311 U/L (40-130); Anion Gap 15.9 (5-19); Aspartate Amino Transferase 22 U/L (0-40); Blood Urea Nitrogen 14 mg/dL (8-23); Calcium 9.3 mg/dL (8.5-10.5); Carbon Dioxide 24 mmol/L (22-29); Chloride 104 mmol/L (98-107); Glucose 152 mg/dL (65-115); Osmolality Calculated 293 mOsm/kg (285-295); Potassium 3.9 mmol/L (3.5-5.1); Sodium 140 mmol/L (136-145); Testosterone Total 2.5 ng/dL (193-740); Total Bilirubin 0.2 mg/dL (0.15-1.2)
[2023-09-04 13:48] LABS: Prostate Specific Antigen < 0.014 ng/mL (0-4)
[2023-09-04] MEDS: leuprolide 22.5 mg Kit IM (14:59)
== END 2023-09-07 23:59 | disposition home or self-care (01) ==
PROVIDERS: PCP Nurse Practitioner; Visit Provider Internal Medicine Medical Oncology
DX: C61 Malignant neoplasm of prostate; Z51.11 Encounter for antineoplastic chemotherapy; Z79.818 Long term (current) use of other agents affecting estrogen receptors and estrogen levels; Z79.899 Other long term (current) drug therapy; Z95.828 Presence of other vascular implants and grafts; Z92.3 Personal history of irradiation
CPT/HCPCS: 36415; 80053; 84153; 84403; 85025; 96402; 99214; J9217

== ENCOUNTER → 2023-10-14 13:54 | Outpatient (BNVA) | payer OTHER, SELFPAY | PROVIDERS: PCP Nurse Practitioner; Visit Provider Nurse Practitioner Family | DX: L91.8 Other hypertrophic disorders of the skin (principal); L02.221 Furuncle of abdominal wall; L82.1 Other seborrheic keratosis; D22.39 Melanocytic nevi of other parts of face | CPT/HCPCS: 17110; 99204 ==

== ENCOUNTER 2023-12-08 13:14 | Oncology outpatient (recurring) (ONCR) | payer OTHER, SELFPAY ==
[2023-12-08 14:02] LABS: Basophils % 0.5 %; Eosinophils # 0.1 10^3/uL (0.0-0.8); Eosinophils % 2.2 %; Hematocrit 43.5 % (37-53); Lymphocytes # 0.9 10^3/uL (0.8-4.8); Lymphocytes % 23.2 %; Mean Corpuscular HGB Conc 33.1 g/dL (30-55); Mean Corpuscular Hemoglobin 29.7 pg (27-33); Mean Corpuscular Volume 89.7 fl (82-101); Monocytes # 0.6 10^3/uL (0.2-0.9); Monocytes % 14.1 %; Neutrophils # 2.42 10^3/uL (1.8-7.7); Neutrophils % 59.8 %; Nucleated Red Blood Cells % 0 %; Platelet Count 182 10^3/cmm (157-399); Red Blood Count 4.85 10^6/uL (3.85-5.65); Red Cell Distribution Width 14.7 % (12.1-15.1); White Blood Count 4.05 10^3/uL (3.29-11.43)
[2023-12-08 14:19] LABS: Alanine Aminotransferase 36 U/L (0-41); Albumin Level 4.2 g/dL (3.5-5.2); Alkaline Phosphatase 307 U/L (40-130); Anion Gap 13.9 (5-19); Aspartate Amino Transferase 37 U/L (0-40); Blood Urea Nitrogen 14 mg/dL (8-23); Calcium 9.4 mg/dL (8.5-10.5); Carbon Dioxide 27 mmol/L (22-29); Chloride 103 mmol/L (98-107); Globulin 2.8 g/dL (1.3-4.6); Glomerular Filtration Rate 116.7 mL/min (90-130); Glucose 127 mg/dL (65-115); Osmolality Calculated 292 mOsm/kg (285-295); Potassium 3.9 mmol/L (3.5-5.1); Prostate Specific Antigen < 0.014 ng/mL (0-4); Sodium 140 mmol/L (136-145); Testosterone Total 2.5 ng/dL (193-740); Total Bilirubin 0.3 mg/dL (0.15-1.2)
[2023-12-08] MEDS: leuprolide 22.5 mg Kit IM (15:38)
== END 2023-12-08 23:59 | disposition home or self-care (01) ==
PROVIDERS: Nurse Practitioner Family; PCP Nurse Practitioner; Visit Provider Internal Medicine Hematology & Oncology
DX: C61 Malignant neoplasm of prostate; Z79.811 Long term (current) use of aromatase inhibitors; Z51.11 Encounter for antineoplastic chemotherapy; F17.210 Nicotine dependence, cigarettes, uncomplicated; Z79.52 Long term (current) use of systemic steroids; Z79.818 Long term (current) use of other agents affecting estrogen receptors and estrogen levels; Z79.899 Other long term (current) drug therapy; Z95.828 Presence of other vascular implants and grafts; Z92.3 Personal history of irradiation; R32 Unspecified urinary incontinence; R23.2 Flushing; T45.1X5A Adverse effect of antineoplastic and immunosuppressive drugs, initial encounter
CPT/HCPCS: 36415; 80053; 84153; 84403; 85025; 96402; 99214; J9217

== ENCOUNTER 2024-03-01 13:01 | Oncology outpatient (recurring) (ONCR) | payer OTHER, SELFPAY ==
[2024-03-01 13:36] LABS: Basophils % 0.5 %; Eosinophils # 0.1 10^3/uL (0.0-0.8); Eosinophils % 2.1 %; Lymphocytes % 22.1 %; Mean Corpuscular HGB Conc 32.7 g/dL (30-55); Mean Corpuscular Hemoglobin 28.9 pg (27-33); Mean Corpuscular Volume 88.4 fl (82-101); Mean Platelet Volume 10.9 fL (7.4-10.4); Monocytes # 0.5 10^3/uL (0.2-0.9); Monocytes % 12.3 %; Neutrophils % 62.8 %; Nucleated Red Blood Cells % 0 %; Platelet Count 182 10^3/cmm (157-399); Red Blood Count 5.09 10^6/uL (3.85-5.65); Red Cell Distribution Width 14.4 % (12.1-15.1)
[2024-03-01 14:02] LABS: Alanine Aminotransferase 26 U/L (0-41); Albumin Level 4.2 g/dL (3.5-5.2); Alkaline Phosphatase 346 U/L (40-130); Anion Gap 16.9 (5-19); Aspartate Amino Transferase 30 U/L (0-40); Blood Urea Nitrogen 17 mg/dL (8-23); Calcium 9.6 mg/dL (8.5-10.5); Carbon Dioxide 24 mmol/L (22-29); Chloride 102 mmol/L (98-107); Creatinine Clr Calc Pharmacy 102.6165; Globulin 2.9 g/dL (1.3-4.6); Glomerular Filtration Rate 90.2 mL/min (90-130); Glucose 132 mg/dL (65-115); Osmolality Calculated 291 mOsm/kg (285-295); Potassium 3.9 mmol/L (3.5-5.1); Sodium 139 mmol/L (136-145); Testosterone Total 2.5 ng/dL (193-740); Total Bilirubin 0.3 mg/dL (0.15-1.2); Total Protein 7.1 g/dL (6.6-8.7)
[2024-03-01 14:03] LABS: Prostate Specific Antigen < 0.014 ng/mL (0-4)
[2024-03-01] MEDS: leuprolide 22.5 mg Kit IM (15:41)
== END 2024-03-09 23:59 | disposition home or self-care (01) ==
PROVIDERS: Internal Medicine Hematology & Oncology; PCP Nurse Practitioner; Visit Provider Internal Medicine Medical Oncology
DX: Z51.11 Encounter for antineoplastic chemotherapy; C61 Malignant neoplasm of prostate; F17.210 Nicotine dependence, cigarettes, uncomplicated; Z79.818 Long term (current) use of other agents affecting estrogen receptors and estrogen levels; Z79.899 Other long term (current) drug therapy; Z95.828 Presence of other vascular implants and grafts; Z92.3 Personal history of irradiation; R32 Unspecified urinary incontinence; R23.2 Flushing
CPT/HCPCS: 36415; 80053; 84153; 84403; 85025; 96402; 99214; J9217

== ENCOUNTER 2024-05-31 11:09 | Oncology outpatient (recurring) (ONCR) | payer OTHER, SELFPAY ==
[2024-05-31 11:40] LABS: Basophils % 0.7 %; Eosinophils # 0.1 10^3/uL (0.0-0.8); Eosinophils % 2.9 %; Hematocrit 44.7 % (37-53); Lymphocytes # 1.1 10^3/uL (0.8-4.8); Mean Corpuscular HGB Conc 32.9 g/dL (30-55); Mean Corpuscular Hemoglobin 28.4 pg (27-33); Mean Corpuscular Volume 86.3 fl (82-101); Mean Platelet Volume 10.6 fL (7.4-10.4); Monocytes # 0.6 10^3/uL (0.2-0.9); Monocytes % 14.3 %; Neutrophils # 2.39 10^3/uL (1.8-7.7); Neutrophils % 56.9 %; Nucleated Red Blood Cells % 0 %; Platelet Count 175 10^3/cmm (157-399); Red Blood Count 5.18 10^6/uL (3.85-5.65); Red Cell Distribution Width 15.7 % (12.1-15.1)
[2024-05-31 12:07] LABS: Alanine Aminotransferase 25 U/L (0-41); Albumin Level 4.3 g/dL (3.5-5.2); Alkaline Phosphatase 310 U/L (40-130); Anion Gap 15.9 (5-19); Aspartate Amino Transferase 28 U/L (0-40); Blood Urea Nitrogen 15 mg/dL (8-23); Calcium 9.3 mg/dL (8.5-10.5); Carbon Dioxide 24 mmol/L (22-29); Chloride 103 mmol/L (98-107); Glomerular Filtration Rate 90.2 mL/min (90-130); Glucose 126 mg/dL (65-115); Osmolality Calculated 290 mOsm/kg (285-295); Potassium 3.9 mmol/L (3.5-5.1); Sodium 139 mmol/L (136-145); Total Bilirubin 0.3 mg/dL (0.15-1.2); Total Protein 7.3 g/dL (6.6-8.7)
[2024-05-31 12:10] LABS: Prostate Specific Antigen < 0.014 ng/mL (0-4); Testosterone Total < 2.5 ng/dL (193-740)
== END 2024-06-07 23:59 | disposition home or self-care (01) ==
PROVIDERS: Nurse Practitioner; PCP Nurse Practitioner; Visit Provider Internal Medicine Medical Oncology
DX: Z53.9 Procedure and treatment not carried out, unspecified reason (principal); Z08 Encounter for follow-up examination after completed treatment for malignant neoplasm; Z85.46 Personal history of malignant neoplasm of prostate; Z92.21 Personal history of antineoplastic chemotherapy; F17.220 Nicotine dependence, chewing tobacco, uncomplicated; Z92.3 Personal history of irradiation
CPT/HCPCS: 36415; 80053; 84153; 84403; 85025; 99214

== ENCOUNTER 2024-08-30 11:43 | Oncology outpatient (recurring) (ONCR) | payer OTHER, SELFPAY ==
[2024-08-30 12:06] LABS: Basophils % 0.4 %; Eosinophils # 0.1 10^3/uL (0.0-0.8); Eosinophils % 3.1 %; Hematocrit 43.4 % (37-53); Lymphocytes # 1.1 10^3/uL (0.8-4.8); Lymphocytes % 24.9 %; Mean Corpuscular Hemoglobin 28.7 pg (27-33); Mean Corpuscular Volume 89.5 fl (82-101); Mean Platelet Volume 10.7 fL (7.4-10.4); Monocytes # 0.5 10^3/uL (0.2-0.9); Neutrophils # 2.68 10^3/uL (1.8-7.7); Neutrophils % 60.4 %; Nucleated Red Blood Cells % 0 %; Platelet Count 173 10^3/cmm (157-399); Red Blood Count 4.85 10^6/uL (3.85-5.65); Red Cell Distribution Width 15.9 % (12.1-15.1); White Blood Count 4.45 10^3/uL (3.29-11.43)
[2024-08-30 12:52] LABS: Alanine Aminotransferase 26 U/L (0-41); Albumin Level 4.1 g/dL (3.5-5.2); Alkaline Phosphatase 289 U/L (40-130); Anion Gap 17.8 (5-19); Aspartate Amino Transferase 28 U/L (0-40); Blood Urea Nitrogen 13 mg/dL (8-23); Calcium 8.8 mg/dL (8.5-10.5); Carbon Dioxide 21 mmol/L (22-29); Chloride 105 mmol/L (98-107); Globulin 2.7 g/dL (1.3-4.6); Glomerular Filtration Rate 90.2 mL/min (90-130); Glucose 126 mg/dL (65-115); Osmolality Calculated 292 mOsm/kg (285-295); Potassium 3.8 mmol/L (3.5-5.1); Sodium 140 mmol/L (136-145); Total Bilirubin 0.2 mg/dL (0.15-1.2); Total Protein 6.8 g/dL (6.6-8.7)
[2024-08-30 12:53] LABS: Prostate Specific Antigen < 0.014 ng/mL (0-4)
== END 2024-09-06 23:59 | disposition home or self-care (01) ==
PROVIDERS: Internal Medicine Medical Oncology; PCP Nurse Practitioner; Visit Provider Internal Medicine
DX: C61 Malignant neoplasm of prostate (principal); Z79.899 Other long term (current) drug therapy; Z95.828 Presence of other vascular implants and grafts
CPT/HCPCS: 36415; 80053; 84153; 85025; 99213

== ENCOUNTER → 2024-10-07 13:22 | Outpatient (BNVA) | payer OTHER, SELFPAY | PROVIDERS: PCP Nurse Practitioner; Visit Provider Nurse Practitioner Family | DX: L81.0 Postinflammatory hyperpigmentation (principal); D22.39 Melanocytic nevi of other parts of face; L91.8 Other hypertrophic disorders of the skin; Z78.9 Other specified health status; L29.89 Other pruritus; R58 Hemorrhage, not elsewhere classified; R20.8 Other disturbances of skin sensation; L53.8 Other specified erythematous conditions; L30.9 Dermatitis, unspecified | CPT/HCPCS: 11102; 17110; 99213 ==

== ENCOUNTER → 2024-11-05 10:49 | Outpatient (BNVA) | payer OTHER, SELFPAY | PROVIDERS: PCP Nurse Practitioner; Visit Provider Dermatology | DX: R20.2 Paresthesia of skin (principal); E85.4 Organ-limited amyloidosis; L82.0 Inflamed seborrheic keratosis; L29.89 Other pruritus; R20.8 Other disturbances of skin sensation; L53.8 Other specified erythematous conditions; B07.8 Other viral warts | CPT/HCPCS: 17110; 99213 ==

== ENCOUNTER 2024-11-30 12:14 | Oncology outpatient (recurring) (ONCR) | payer OTHER, SELFPAY ==
[2024-11-30 12:36] LABS: Hematocrit 47.2 % (37-53); Hemoglobin 15.20 g/dL (11.27-16.99); Mean Corpuscular HGB Conc 32.2 g/dL (30-55); Mean Corpuscular Hemoglobin 29.5 pg (27-33); Mean Corpuscular Volume 91.5 fl (82-101); Nucleated Red Blood Cells % 0 %; Platelet Count 187 10^3/cmm (157-399); Red Blood Count 5.16 10^6/uL (3.85-5.65); White Blood Count 4.56 10^3/uL (3.29-11.43)
[2024-11-30 13:06] LABS: Alanine Aminotransferase 30 U/L (0-41); Albumin Level 4.3 g/dL (3.5-5.2); Alkaline Phosphatase 287 U/L (40-130); Anion Gap 15.2 (5-19); Aspartate Amino Transferase 30 U/L (0-40); Blood Urea Nitrogen 10 mg/dL (8-23); Calcium 9.6 mg/dL (8.5-10.5); Carbon Dioxide 26 mmol/L (22-29); Chloride 100 mmol/L (98-107); Creatinine Clr Calc Pharmacy 100.9048; Globulin 3.1 g/dL (1.3-4.6); Glucose 123 mg/dL (65-115); Osmolality Calculated 284 mOsm/kg (285-295); Potassium 4.2 mmol/L (3.5-5.1); Sodium 137 mmol/L (136-145); Total Protein 7.4 g/dL (6.6-8.7)
[2024-11-30 13:07] LABS: Prostate Specific Antigen < 0.014 ng/mL (0-4)
== END 2024-12-07 23:59 | disposition home or self-care (01) ==
PROVIDERS: Internal Medicine; PCP Nurse Practitioner; Visit Provider Internal Medicine Medical Oncology
DX: Z08 Encounter for follow-up examination after completed treatment for malignant neoplasm (principal); Z85.46 Personal history of malignant neoplasm of prostate; F17.220 Nicotine dependence, chewing tobacco, uncomplicated; Z79.899 Other long term (current) drug therapy; Z95.828 Presence of other vascular implants and grafts; Z92.21 Personal history of antineoplastic chemotherapy; Z92.3 Personal history of irradiation
CPT/HCPCS: 36415; 80053; 83615; 84153; 84403; 85025; 99214

== ENCOUNTER 2025-03-01 12:17 | Oncology outpatient (recurring) (ONCR) | payer OTHER, SELFPAY ==
[2025-03-01 12:45] LABS: Hematocrit 44.7 % (37-53); Hemoglobin 14.40 g/dL (11.27-16.99); Mean Corpuscular HGB Conc 32.2 g/dL (30-55); Mean Corpuscular Hemoglobin 28.4 pg (27-33); Mean Corpuscular Volume 88.2 fl (82-101); Nucleated Red Blood Cells % 0 %; Platelet Count 175 10^3/cmm (157-399); Red Blood Count 5.07 10^6/uL (3.85-5.65); White Blood Count 4.30 10^3/uL (3.29-11.43)
[2025-03-01 13:11] LABS: Alanine Aminotransferase 29 U/L (0-41); Albumin Level 4.3 g/dL (3.5-5.2); Alkaline Phosphatase 274 U/L (40-130); Anion Gap 17.0 (5-19); Aspartate Amino Transferase 33 U/L (0-40); Blood Urea Nitrogen 14 mg/dL (8-23); Calcium 9.3 mg/dL (8.5-10.5); Carbon Dioxide 23 mmol/L (22-29); Chloride 102 mmol/L (98-107); Globulin 2.8 g/dL (1.3-4.6); Glucose 113 mg/dL (65-115); Osmolality Calculated 287 mOsm/kg (285-295); Potassium 4.0 mmol/L (3.5-5.1); Prostate Specific Antigen 0.045 ng/mL (0-4); Sodium 138 mmol/L (136-145); Total Protein 7.1 g/dL (6.6-8.7)
== END 2025-03-09 23:59 | disposition home or self-care (01) ==
PROVIDERS: Nurse Practitioner; PCP Nurse Practitioner; Visit Provider Internal Medicine Medical Oncology
DX: Z08 Encounter for follow-up examination after completed treatment for malignant neoplasm (principal); Z85.46 Personal history of malignant neoplasm of prostate; F17.220 Nicotine dependence, chewing tobacco, uncomplicated; F17.210 Nicotine dependence, cigarettes, uncomplicated; Z95.828 Presence of other vascular implants and grafts; Z92.21 Personal history of antineoplastic chemotherapy; Z92.3 Personal history of irradiation
CPT/HCPCS: 80053; 84153; 85025; 99213